=== PATIENT | female | born 1950 | race Caucasian/White ===

== ENCOUNTER 2018-05-22 08:05 | Inpatient (IN) ==
[2018-05-22 08:33] LABS: Baso % (Auto) 0.9 % (0.0-2.0); Eos # (Auto) 0.2 th/mm3 (0.0-0.4); Eos % (Auto) 5.2 % (0.0-4.0); Hematocrit 39.8 % (35.0-46.0); Hemoglobin 12.5 gm/dL (11.6-15.3); Lymph # (Auto) 0.6 th/mm3 (1.0-4.8); Lymph % (Auto) 16.4 % (9.0-44.0); Mean Corpuscular HGB Conc 31.3 % (32.0-36.0); Mean Corpuscular Hemoglobin 27.9 pg (27.0-34.0); Mean Platelet Volume 8.4 fL (7.0-11.0); Mono # (Auto) 0.2 th/mm3 (0.0-0.9); Mono % (Auto) 4.9 % (0.0-8.0); Neut # (Auto) 2.6 th/mm3 (1.8-7.7); Neut % (Auto) 72.6 % (16.0-70.0); Platelet Count 185 th/mm3 (150-450); Red Blood Count 4.48 mil/mm3 (4.00-5.30); Red Cell Distribution Width 15.1 % (11.6-17.2); White Blood Count 3.6 th/mm3 (4.0-11.0)
[2018-05-22 08:43] LABS: Chloride 105 meq/L (98-107); Potassium 4.3 meq/L (3.5-5.1); Sodium 143 meq/L (136-145)
[2018-05-22 08:46] LABS: Albumin 2.9 g/dL (3.4-5.0); Anion Gap 2 meq/L (5-15); Calcium 8.4 mg/dL (8.5-10.1); Carbon Dioxide 36.1 meq/L (21.0-32.0); Glucose,Random 105 mg/dL (74-106)
[2018-05-22 08:47] LABS: Blood Urea Nitrogen 30 mg/dL (7-18)
[2018-05-22 08:49] LABS: Alanine Aminotransferase 28 U/L (10-53); Aspartate Aminotransferase 26 U/L (15-37)
[2018-05-22 08:50] LABS: Glomerular Filtration Rate 32 mL/min (>89)
[2018-05-22 08:51] LABS: Total Protein 7.9 g/dL (6.4-8.2)
[2018-05-22 08:52] LABS: Alkaline Phosphatase 85 U/L (45-117)
[2018-05-22 08:53] LABS: Creatine Kinase 57 U/L (26-192)
[2018-05-22 08:54] LABS: Troponin I 0.03 ng/mL (0.02-0.05)
--- NOTE | 2018-05-22 09:00 | ED ---
HPI General Chief complaint: Respiratory Symptoms Stated complaint: Cough/Sob x this am Time Seen by Provider: 05/22/18 08:17 History of Present Illness HPI narrative: 68-year-old female here for evaluation of shortness of breath. Patient has history of hypothyroid, hypertension, cataract. Patient was scheduled to have a cataract surgery on the right eye this morning but she was having shortness of breath, surgery was canceled and patient was sent to the ER. Patient has history of brain aneurysm s/p repair, poor historian unable to give any information about her condition, she lives with her son who is not at the bedside, unsure if she is compliant with her medications. I am unsure if the patient has been having cough or fever at home with any symptoms. Related Data Home Medications Medication Instructions Recorded Confirmed allopurinol 100 mg PO DAILY 05/21/18 05/21/18 amlodipine 5 mg PO DAILY 05/21/18 05/21/18 aspirin 81 mg PO DAILY 05/21/18 05/21/18 atorvastatin 20 mg PO DAILY 05/21/18 05/21/18 levothyroxine 112 mcg PO DAILY 05/21/18 05/21/18 metoprolol succinate 50 mg PO DAILY 05/21/18 05/21/18 Allergies Allergy/AdvReac Type Severity Reaction Status Date / Time Iodinated Contrast- Oral and Allergy Unknown Verified 05/22/18 08:35 IV Dye [Contrast] Review of Systems ROS: all other systems reviewed are negative [facility] Medical History Medical History Anatomical narrow angle (Acute) Bandemia (Acute) Bilateral cataracts (Acute) CKD (chronic kidney disease) (Acute) Dementia (Acute) Gout (Acute) History of stroke (Acute) Hx of acute renal failure (Acute) Hyperlipidemia (Acute) Hypertension (Acute) Hypothyroidism (Acute) Leukocytosis (Acute) Mitral regurgitation (Acute) SOB (shortness of breath) (Acute) Syncope (Acute) TIA (transient ischemic attack) (Acute) Tricuspid regurgitation (Acute) Vitamin D deficiency (Acute) Surgical History Surgical History H/O craniotomy (Acute) Social History Social History Substance History: No History of Abuse Second Hand Smoke Exposure: No Smoking Status: Former smoker Tobacco Type: Cigarettes How Often Do You Have a Drink Containing Alcohol: Never Recent Travel in [facility] within the Last 8 Weeks: No Recent Out of Country Travel within the Last 8 Weeks: No Immunization History Tetanus Immunization: Unsure Hx Influenza Vaccine This Season: Yes Exam Narrative Exam Narrative: GENERAL: Alert oriented 2, no acute distress SKIN: Focused skin assessment warm/dry. HEAD: Atraumatic. Normocephalic. EYES: Right pupil dilated, No scleral icterus. No injection or drainage. ENT: No nasal bleeding or discharge. Mucous membranes pink and moist. NECK: Trachea midline. No JVD. CARDIOVASCULAR: Regular rate and rhythm. No murmur appreciated. RESPIRATORY: Crackles bilateral lower lung wagner left more than right, no accessory muscle use. GASTROINTESTINAL: Abdomen soft, non-tender, nondistended. Hepatic and splenic margins not palpable. MUSCULOSKELETAL: pitting Edema b/l. No obvious deformities. No clubbing. No cyanosis. NEUROLOGICAL: Awake and alert. No obvious cranial nerve deficits. Motor grossly within normal limits. Normal speech. PSYCHIATRIC: Appropriate mood and affect; insight and judgment normal. Course Initial Documented Vital Signs Temperature 98 F 05/22/18 08:30 Pulse Rate 86 05/22/18 08:30 Respiratory Rate 26 H 05/22/18 08:30 Blood Pressure 156/80 H 05/22/18 08:30 Pulse Oximetry 95 05/22/18 08:30 Last Documented Vital Signs Temperature 98.2 F 05/22/18 20:00 Pulse Rate 60 05/23/18 07:00 Respiratory Rate 15 05/23/18 07:00 Blood Pressure 154/65 H 05/23/18 07:00 Pulse Oximetry 93 L 05/23/18 07:45 Medical Decision Making [facility] Narrative Medical decision making narrative: 68-year-old female here for acute onset shortness of breath. Patient has kyphosis, x-ray shows bilateral atelectasis with no infiltrates, physical exam remarkable for crackles, elevated BNP, hypercapnea on ABG. Patient was started on BiPAP 18/ with 30% oxygen she seems to be improving and no concern for deterioration to warrant for securing the airway, will repeat ABG after the BiPAP, patient will be admitted for hypercapnia, hypoxemia, CHF exacerbation. Lab Data Result diagrams: 05/22/18 08:20 05/23/18 04:37 Lab Results 05/22/18 05/22/18 05/22/18 Range/Units 08:20 08:20 08:20 CBC w Diff Auto diff final WBC 3.6 L (4.0-11.0) th/mm3 RBC 4.48 (4.00-5.30) mil/mm3 Hgb 12.5 (11.6-15.3) gm/dL Hct 39.8 (35.0-46.0) % MCV 89.0 (80.0-100.0) fL MCH 27.9 (27.0-34.0) pg MCHC 31.3 L (32.0-36.0) % RDW 15.1 (11.6-17.2) % Plt Count 185 (150-450) th/mm3 MPV 8.4 (7.0-11.0) fL Neut % (Auto) 72.6 H (16.0-70.0) % Lymph % (Auto) 16.4 (9.0-44.0) % [place] % (Auto) 4.9 (0.0-8.0) % Eos % (Auto) 5.2 H (0.0-4.0) % Baso % (Auto) 0.9 (0.0-2.0) % Neut # (Auto) 2.6 (1.8-7.7) th/mm3 Lymph # (Auto) 0.6 L (1.0-4.8) th/mm3 [place] # (Auto) 0.2 (0.0-0.9) th/mm3 Eos # (Auto) 0.2 (0.0-0.4) th/mm3 Baso # (Auto) 0.0 (0.0-0.2) th/mm3 WBC Differential . Differential Comment . PT (9.8-11.6) sec INR Ratio APTT (24.3-30.1) sec Puncture Site Patient Temperature O2 Saturation (90-100) % ABG pH (7.380-7.420) ABG pCO2 (38-42) mmHg ABG pO2 (61-120) mmHg ABG HCO3 (22-26) mmol/L ABG O2 Content (12.0-20.0) Vol % ABG Base Excess (-2-2) mmol/L ABG Methemoglobin (0-2) % Curt Test Hemoglobin (12.0-16.0) G/DL Carboxyhemoglobin (0-4) % O2 Delivery Device Liter Flow L/M Vent Setting Inspired O2 % Critical Value Sodium 143 (136-145) meq/L Potassium 4.3 (3.5-5.1) meq/L Chloride 105 (98-107) meq/L Carbon Dioxide 36.1 H (21.0-32.0) meq/L Anion Gap 2 L (5-15) meq/L BUN 30 H (7-18) mg/dL Creatinine 1.60 H (0.50-1.00) mg/dL Estimated GFR 32 L (>89) mL/min POC Glucose (68-110) mg/dl Random Glucose 105 (74-106) mg/dL Lactic Acid 0.9 (0.4-2.0) mmol/L Calcium 8.4 L (8.5-10.1) mg/dL Total Bilirubin 0.5 (0.2-1.0) mg/dL AST 26 (15-37) U/L ALT 28 (10-53) U/L Alkaline Phosphatase 85 (45-117) U/L Total Creatine Kinase 57 (26-192) U/L Troponin I 0.03 (0.02-0.05) ng/mL B-Natriuretic Peptide (0-100) pg/mL Total Protein 7.9 (6.4-8.2) g/dL Albumin 2.9 L (3.4-5.0) g/dL Urine Color (Yellw/Straw) Urine Clarity (Clear) Urine pH (5.0-8.5) Ur Specific [place] (1.002-1.035) Urine Protein (Neg-Trace) mg/dL Urine Glucose (UA) (Negative) mg/dL Urine Ketones (Negative) mg/dL Urine Occult Blood (Negative) Urine Nitrate (Negative) Urine Bilirubin (Negative) Urine Urobilinogen (Less than 2) mg/dL Ur Leukocyte Esterase (Negative) Urine RBC (0-3) /hpf Ur Squamous Epith Cells (0-5) /hpf Amorphous Sediment (None) /hpf Micro UA Comment Urine Culture Comments Nasal Screen MRSA (PCR) (Negative) 05/22/18 05/22/18 05/22/18 Range/Units 08:20 08:50 09:00 CBC w Diff WBC (4.0-11.0) th/mm3 RBC (4.00-5.30) mil/mm3 Hgb (11.6-15.3) gm/dL Hct (35.0-46.0) % MCV (80.0-100.0) fL MCH (27.0-34.0) pg MCHC (32.0-36.0) % RDW (11.6-17.2) % Plt Count (150-450) th/mm3 MPV (7.0-11.0) fL Neut % (Auto) (16.0-70.0) % Lymph % (Auto) (9.0-44.0) % [place] % (Auto) (0.0-8.0) % Eos % (Auto) (0.0-4.0) % Baso % (Auto) (0.0-2.0) % Neut # (Auto) (1.8-7.7) th/mm3 Lymph # (Auto) (1.0-4.8) th/mm3 [place] # (Auto) (0.0-0.9) th/mm3 Eos # (Auto) (0.0-0.4) th/mm3 Baso # (Auto) (0.0-0.2) th/mm3 WBC Differential Differential Comment PT 11.0 (9.8-11.6) sec INR 1.1 Ratio APTT 24.7 (24.3-30.1) sec Puncture Site Left radial Patient Temperature 98.6 O2 Saturation 95 (90-100) % ABG pH 7.15 L* (7.380-7.420) ABG pCO2 103 H* (38-42) mmHg ABG pO2 122 H (61-120) mmHg ABG HCO3 35 H (22-26) mmol/L ABG O2 Content 16.0 (12.0-20.0) Vol % ABG Base Excess 6.3 H (-2-2) mmol/L ABG Methemoglobin 0.6 (0-2) % Curt Test Present Hemoglobin 11.8 L (12.0-16.0) G/DL Carboxyhemoglobin 1.8 (0-4) % O2 Delivery Device Nasal cannula Liter Flow 5.00 L/M Vent Setting Inspired O2 21 % Critical Value Yes Sodium (136-145) meq/L Potassium (3.5-5.1) meq/L Chloride (98-107) meq/L Carbon Dioxide (21.0-32.0) meq/L Anion Gap (5-15) meq/L BUN (7-18) mg/dL Creatinine (0.50-1.00) mg/dL Estimated GFR (>89) mL/min POC Glucose (68-110) mg/dl Random Glucose (74-106) mg/dL Lactic Acid (0.4-2.0) mmol/L Calcium (8.5-10.1) mg/dL Total Bilirubin (0.2-1.0) mg/dL AST (15-37) U/L ALT (10-53) U/L Alkaline Phosphatase (45-117) U/L Total Creatine Kinase (26-192) U/L Troponin I (0.02-0.05) ng/mL B-Natriuretic Peptide 835 H (0-100) pg/mL Total Protein (6.4-8.2) g/dL Albumin (3.4-5.0) g/dL Urine Color (Yellw/Straw) Urine Clarity (Clear) Urine pH (5.0-8.5) Ur Specific [place] (1.002-1.035) Urine Protein (Neg-Trace) mg/dL Urine Glucose (UA) (Negative) mg/dL Urine Ketones (Negative) mg/dL Urine Occult Blood (Negative) Urine Nitrate (Negative) Urine Bilirubin (Negative) Urine Urobilinogen (Less than 2) mg/dL Ur Leukocyte Esterase (Negative) Urine RBC (0-3) /hpf Ur Squamous Epith Cells (0-5) /hpf Amorphous Sediment (None) /hpf Micro UA Comment Urine Culture Comments Nasal Screen MRSA (PCR) (Negative) 05/22/18 05/22/18 05/22/18 Range/Units 10:14 10:30 13:00 CBC w Diff WBC (4.0-11.0) th/mm3 RBC (4.00-5.30) mil/mm3 Hgb (11.6-15.3) gm/dL Hct (35.0-46.0) % MCV (80.0-100.0) fL MCH (27.0-34.0) pg MCHC (32.0-36.0) % RDW (11.6-17.2) % Plt Count (150-450) th/mm3 MPV (7.0-11.0) fL Neut % (Auto) (16.0-70.0) % Lymph % (Auto) (9.0-44.0) % [place] % (Auto) (0.0-8.0) % Eos % (Auto) (0.0-4.0) % Baso % (Auto) (0.0-2.0) % Neut # (Auto) (1.8-7.7) th/mm3 Lymph # (Auto) (1.0-4.8) th/mm3 [place] # (Auto) (0.0-0.9) th/mm3 Eos # (Auto) (0.0-0.4) th/mm3 Baso # (Auto) (0.0-0.2) th/mm3 WBC Differential Differential Comment PT (9.8-11.6) sec INR Ratio APTT (24.3-30.1) sec Puncture Site Right radial Right radial Patient Temperature 98.6 98.6 O2 Saturation 86 L* 91 (90-100) % ABG pH 7.20 L* 7.27 L* (7.380-7.420) ABG pCO2 93 H* 82 H* (38-42) mmHg ABG pO2 66 70 (61-120) mmHg ABG HCO3 35 H 36 H (22-26) mmol/L ABG O2 Content 14.1 14.5 (12.0-20.0) Vol % ABG Base Excess 7.1 H 8.9 H (-2-2) mmol/L ABG Methemoglobin 1.4 0.6 (0-2) % Curt Test Present Present Hemoglobin 11.7 L 11.3 L (12.0-16.0) G/DL Carboxyhemoglobin 2.2 2.1 (0-4) % O2 Delivery Device Bipap Bipap Liter Flow L/M Vent Setting Ipap18/epap5 Ipap18/epap5 Inspired O2 35 35 % Critical Value Yes Yes Sodium (136-145) meq/L Potassium (3.5-5.1) meq/L Chloride (98-107) meq/L Carbon Dioxide (21.0-32.0) meq/L Anion Gap (5-15) meq/L BUN (7-18) mg/dL Creatinine (0.50-1.00) mg/dL Estimated GFR (>89) mL/min POC Glucose (68-110) mg/dl Random Glucose (74-106) mg/dL Lactic Acid (0.4-2.0) mmol/L Calcium (8.5-10.1) mg/dL Total Bilirubin (0.2-1.0) mg/dL AST (15-37) U/L ALT (10-53) U/L Alkaline Phosphatase (45-117) U/L Total Creatine Kinase (26-192) U/L Troponin I (0.02-0.05) ng/mL B-Natriuretic Peptide (0-100) pg/mL Total Protein (6.4-8.2) g/dL Albumin (3.4-5.0) g/dL Urine Color Yellow (Yellw/Straw) Urine Clarity Cloudy H (Clear) Urine pH 5.5 (5.0-8.5) Ur Specific [place] Greater/equal 1.030 (1.002-1.035) Urine Protein 300 or greater H (Neg-Trace) mg/dL Urine Glucose (UA) Negative (Negative) mg/dL Urine Ketones Negative (Negative) mg/dL Urine Occult Blood Trace (Negative) Urine Nitrate Negative (Negative) Urine Bilirubin Negative (Negative) Urine Urobilinogen 0.2 (Less than 2) mg/dL Ur Leukocyte Esterase Negative (Negative) Urine RBC 0-3 (0-3) /hpf Ur Squamous Epith Cells 0-5 (0-5) /hpf Amorphous Sediment Many H (None) /hpf Micro UA Comment Culture not ind Urine Culture Comments Culture not ind Nasal Screen MRSA (PCR) (Negative) 05/22/18 05/22/18 05/23/18 Range/Units 13:00 22:02 04:37 CBC w Diff WBC (4.0-11.0) th/mm3 RBC (4.00-5.30) mil/mm3 Hgb (11.6-15.3) gm/dL Hct (35.0-46.0) % MCV (80.0-100.0) fL MCH (27.0-34.0) pg MCHC (32.0-36.0) % RDW (11.6-17.2) % Plt Count (150-450) th/mm3 MPV (7.0-11.0) fL Neut % (Auto) (16.0-70.0) % Lymph % (Auto) (9.0-44.0) % [place] % (Auto) (0.0-8.0) % Eos % (Auto) (0.0-4.0) % Baso % (Auto) (0.0-2.0) % Neut # (Auto) (1.8-7.7) th/mm3 Lymph # (Auto) (1.0-4.8) th/mm3 [place] # (Auto) (0.0-0.9) th/mm3 Eos # (Auto) (0.0-0.4) th/mm3 Baso # (Auto) (0.0-0.2) th/mm3 WBC Differential Differential Comment PT (9.8-11.6) sec INR Ratio APTT (24.3-30.1) sec Puncture Site Patient Temperature O2 Saturation (90-100) % ABG pH (7.380-7.420) ABG pCO2 (38-42) mmHg ABG pO2 (61-120) mmHg ABG HCO3 (22-26) mmol/L ABG O2 Content (12.0-20.0) Vol % ABG Base Excess (-2-2) mmol/L ABG Methemoglobin (0-2) % Curt Test Hemoglobin (12.0-16.0) G/DL Carboxyhemoglobin (0-4) % O2 Delivery Device Liter Flow L/M Vent Setting Inspired O2 % Critical Value Sodium 144 (136-145) meq/L Potassium 5.1 D (3.5-5.1) meq/L Chloride 107 (98-107) meq/L Carbon Dioxide 34.5 H (21.0-32.0) meq/L Anion Gap 3 L (5-15) meq/L BUN 31 H (7-18) mg/dL Creatinine 1.50 H (0.50-1.00) mg/dL Estimated GFR 35 L (>89) mL/min POC Glucose 100 (68-110) mg/dl Random Glucose 134 H (74-106) mg/dL Lactic Acid (0.4-2.0) mmol/L Calcium 8.2 L (8.5-10.1) mg/dL Total Bilirubin 0.4 (0.2-1.0) mg/dL AST 21 (15-37) U/L ALT 22 (10-53) U/L Alkaline Phosphatase 76 (45-117) U/L Total Creatine Kinase (26-192) U/L Troponin I (0.02-0.05) ng/mL B-Natriuretic Peptide (0-100) pg/mL Total Protein 6.9 D (6.4-8.2) g/dL Albumin 2.4 L (3.4-5.0) g/dL Urine Color (Yellw/Straw) Urine Clarity (Clear) Urine pH (5.0-8.5) Ur Specific [place] (1.002-1.035) Urine Protein (Neg-Trace) mg/dL Urine Glucose (UA) (Negative) mg/dL Urine Ketones (Negative) mg/dL Urine Occult Blood (Negative) Urine Nitrate (Negative) Urine Bilirubin (Negative) Urine Urobilinogen (Less than 2) mg/dL Ur Leukocyte Esterase (Negative) Urine RBC (0-3) /hpf Ur Squamous Epith Cells (0-5) /hpf Amorphous Sediment (None) /hpf Micro UA Comment Urine Culture Comments Nasal Screen MRSA (PCR) Not detected (Negative) 05/23/18 Range/Units 08:00 CBC w Diff WBC (4.0-11.0) th/mm3 RBC (4.00-5.30) mil/mm3 Hgb (11.6-15.3) gm/dL Hct (35.0-46.0) % MCV (80.0-100.0) fL MCH (27.0-34.0) pg MCHC (32.0-36.0) % RDW (11.6-17.2) % Plt Count (150-450) th/mm3 MPV (7.0-11.0) fL Neut % (Auto) (16.0-70.0) % Lymph % (Auto) (9.0-44.0) % [place] % (Auto) (0.0-8.0) % Eos % (Auto) (0.0-4.0) % Baso % (Auto) (0.0-2.0) % Neut # (Auto) (1.8-7.7) th/mm3 Lymph # (Auto) (1.0-4.8) th/mm3 [place] # (Auto) (0.0-0.9) th/mm3 Eos # (Auto) (0.0-0.4) th/mm3 Baso # (Auto) (0.0-0.2) th/mm3 WBC Differential Differential Comment PT (9.8-11.6) sec INR Ratio APTT (24.3-30.1) sec Puncture Site Patient Temperature O2 Saturation (90-100) % ABG pH (7.380-7.420) ABG pCO2 (38-42) mmHg ABG pO2 (61-120) mmHg ABG HCO3 (22-26) mmol/L ABG O2 Content (12.0-20.0) Vol % ABG Base Excess (-2-2) mmol/L ABG Methemoglobin (0-2) % Curt Test Hemoglobin (12.0-16.0) G/DL Carboxyhemoglobin (0-4) % O2 Delivery Device Liter Flow L/M Vent Setting Inspired O2 % Critical Value Sodium (136-145) meq/L Potassium (3.5-5.1) meq/L Chloride (98-107) meq/L Carbon Dioxide (21.0-32.0) meq/L Anion Gap (5-15) meq/L BUN (7-18) mg/dL Creatinine (0.50-1.00) mg/dL Estimated GFR (>89) mL/min POC Glucose 125 H (68-110) mg/dl Random Glucose (74-106) mg/dL Lactic Acid (0.4-2.0) mmol/L Calcium (8.5-10.1) mg/dL Total Bilirubin (0.2-1.0) mg/dL AST (15-37) U/L ALT (10-53) U/L Alkaline Phosphatase (45-117) U/L Total Creatine Kinase (26-192) U/L Troponin I (0.02-0.05) ng/mL B-Natriuretic Peptide (0-100) pg/mL Total Protein (6.4-8.2) g/dL Albumin (3.4-5.0) g/dL Urine Color (Yellw/Straw) Urine Clarity (Clear) Urine pH (5.0-8.5) Ur Specific [place] (1.002-1.035) Urine Protein (Neg-Trace) mg/dL Urine Glucose (UA) (Negative) mg/dL Urine Ketones (Negative) mg/dL Urine Occult Blood (Negative) Urine Nitrate (Negative) Urine Bilirubin (Negative) Urine Urobilinogen (Less than 2) mg/dL Ur Leukocyte Esterase (Negative) Urine RBC (0-3) /hpf Ur Squamous Epith Cells (0-5) /hpf Amorphous Sediment (None) /hpf Micro UA Comment Urine Culture Comments Nasal Screen MRSA (PCR) (Negative) Imaging Data Radiologist's impression: Chest X-Ray 05/22/18 08:17 CONCLUSION: Mild bibasilar atelectasis. Chest CT 05/23/18 00:36 CONCLUSION: 1. Small bilateral pleural effusions, right larger than left. In the right lower lobe adjacent to the pleural fluid is atelectasis versus airspace consolidation. 2. Possible gallbladder wall edema. 3. Severe coronary artery calcification and atherosclerotic disease. Discharge Plan Discharge Disposition Patient Disposition: 30 Still Patient Discharge Condition Condition: Fair Discharge Details Diagnosis: CHF (congestive heart failure), Acute hypercapnic respiratory failure Physicians Team ED Provider: Kush Lazaro Primary Care Provider: UNKNOWN, Attending Provider: Montez Licona Other Providers: Shaquille Rivers V Status ED Status: Left Department Discharge Information Discharge Date/Time: 05/22/18 11:22
[2018-05-22 09:09] LABS: ABG Base Excess 6.3 mmol/L (-2-2); ABG PCO2 103 mmHg (38-42); ABG PO2 122 mmHg (61-120)
[2018-05-22 09:09] LABS: Activated Partial Thrombo Time 24.7 sec (24.3-30.1); INR 1.1 Ratio
--- NOTE | 2018-05-22 09:14 | XR ---
EXAM DATE: 05/22/2018 8:47 AM EDT AGE/SEX: 68 years / Female INDICATIONS: Patient presents with shortness of breath and lethargic, new onset. CLINICAL DATA: This is the patient's initial encounter. Patient reports that signs and symptoms have been present for 1 day and indicates a pain score of 4/10. MEDICAL/SURGICAL HISTORY: None. Non-responsive. COMPARISON: [facility], XR CHEST PA AND LAT, 10/12/2014. . FINDINGS: Mild atelectasis seen of both bases. No pleural effusion or pneumothorax. Heart size stable, within normal limits. CONCLUSION: Mild bibasilar atelectasis. Electronically signed by: Shaquille Taylor MD 05/22/2018 9:13 AM EDT
--- NOTE | 2018-05-22 09:30 | ECG ---
Date Performed: 05/22/2018 Time Performed: 08:30:53 PTAGE: 68 years EKG: Sinus rhythm INFERIOR MYOCARDIAL INFARCTION ANTEROSEPTAL MYOCARDIAL INFARCTION ABNORMAL ECG NO PREVIOUS TRACING DOCTOR: Hoda Coto Interpretating Date/Time 05/22/2018 09:29:16
[2018-05-22 10:19] LABS: ABG Base Excess 7.1 mmol/L (-2-2); ABG PCO2 93 mmHg (38-42); ABG PO2 66 mmHg (61-120)
[2018-05-22 10:47] LABS: Bilirubin,Urine Negative (Negative); Clarity,Urine Cloudy (Clear); Color,Urine Yellow (Yellw/Straw); Glucose,Urine (UA) Negative (Negative); Leukocyte Esterase,Urine Negative (Negative); Nitrite,Urine Negative (Negative); PH,Urine 5.5 (5.0-8.5); Specific Gravity,Urine Greater/Equal 1.030 (1.002-1.035); Urobilinogen,Urine 0.2 mg/dL (Less than 2)
[2018-05-22 11:01] LABS: RBC,Urine 0-3 /hpf (0-3)
[2018-05-22 11:02] LABS: Amorphous Sediment,Urine Many /hpf; Squamous Epithelial Cell,Urine 0-5 /hpf (0-5)
--- NOTE | 2018-05-22 12:15 | P.PNADD ---
Addendum to Inpatient Note Reason for Addendum: Corrected Documentation Additional information: I was contacted earlier by ER provider to admit patient for respiratory failure. At the time he saw her they were unsure of her primary care physician but she does have [facility] so they contact me. Patient was placed on BiPAP due to hypercapnic hypoxic respiratory failure. Her repeat ABG done approximately an hour after the BiPAP showed improvement of numbers and her mental status was moving as well. When I came to interview the patient she reported to me that she was a patient of Dr. Licona's. I spoke with Dr. Licona and did confirm this with him. He will accept care of the patient. I advised that I would place him baseline orders so it would not be any delay in her care as he is in his office currently. I placed cursory orders and changed attending names to reflect Dr. Licona's assumption of care.
[2018-05-22 13:07] LABS: ABG Base Excess 8.9 mmol/L (-2-2); ABG PCO2 82 mmHg (38-42); ABG PO2 70 mmHg (61-120)
[2018-05-22] MEDS ORDERED: MethylPREDNISolone Sod Succinate Inj 40 MG/ML Vial IV.PUSH SCH (14:00)
[2018-05-22] MEDS: Enoxaparin Inj 30 MG/0.3 ML Syringe SQ SCH (14:26)
[2018-05-22] MEDS: Azithromycin Inj 500 MG in Sodium Chlor 0.9% Inj 250 ML IV.SIG SCH (14:26)
[2018-05-22] MEDS: Pantoprazole Inj 40 MG Vial IV.PUSH SCH (16:15)
--- NOTE | 2018-05-22 17:06 | P.HPFP ---
History of Present Illness Service: family medicine Primary Care Physician: UNKNOWN History of Present Illness: pt sent to ED when she bwecame sob at a catarract proceedure Inpatient Certification: I certify that the inpatient services were ordered in accordance with Medicare regulations governing the order. This includes certification that hospital inpatient services are reasonable and necessary and in the case of services not specified as inpatient-only under 42 CFR 419.22(n), that they are appropriately provided as inpatient services in accordance to with the 2-midnight benchmark under 43 CFR 412.3(e) Estimated Total Length of Stay (Days): 3 Plans for Post Hospital Care: Not yet determined Review of Systems Respiratory: Reports shortness of breath Psychiatric: Reports confusion PMFSH - History History Provided By: Friend - Medical History Medical History: Medical History (Last Updated 05/21/18 @ 14:24 by Iris Haq RN) Anatomical narrow angle Bandemia Bilateral cataracts CKD (chronic kidney disease) Dementia Gout History of stroke Hx of acute renal failure Hyperlipidemia Hypertension Hypothyroidism Leukocytosis Mitral regurgitation SOB (shortness of breath) Syncope TIA (transient ischemic attack) Tricuspid regurgitation Vitamin D deficiency - Surgical History Surgical History: Surgical History (Last Updated 05/21/18 @ 14:25 by Iris Haq RN) H/O craniotomy - Tobacco History Second Hand Smoke Exposure: No Tobacco Use In Past 30 Days: No Smoking Status: Former smoker Tobacco Type: Cigarettes - Alcohol History How Often Do You Have a Drink Containing Alcohol: Never - Substance Use History Substance History: No History of Abuse - Travel History Recent Travel in the [place] Within the Last 8 Weeks: No Recent Travel Out of the Country Within the Last 8 Weeks: No - Immunization History Tetanus Immunization: >5 Years Hx Influenza Vaccine This Season: Yes Medications and Allergies Active Medications: Active Medications Albuterol (Albuterol Neb (Prn)) 2.5 mg NEB Q2HR NEB PRN PRN Reason: SHORTNESS OF BREATH Albuterol (Duoneb Neb (Willy)) 1 ampul NEB Q6HR NEB WILLY Last Admin: 05/22/18 15:21 Dose: 1 ampul Chlorhexidine Gluconate (Chlorhexidine 2% Cloth) 3 pack TOPICAL DAILY@0400 WILLY Stop: 05/28/18 03:59 Chlorhexidine Gluconate (Chlorhexidine 2% Cloth) 3 pack TOPICAL DAILY@0400 PRN PRN Reason: Extra cloth needed Stop: 05/28/18 03:59 Enoxaparin Sodium (Lovenox Inj) 30 mg SQ Q24H [facility] Last Admin: 05/22/18 14:26 Dose: 30 mg Azithromycin 500 mg/ Sodium (Chloride) 250 mls @ 250 mls/hr IV.SIG Q24H [facility] Last Admin: 05/22/18 14:26 Dose: 250 mls/hr Ceftriaxone Sodium 1,000 mg/ (Sodium Chloride) 100 mls @ 200 mls/hr IV.SIG Q24H [facility] Last Admin: 05/22/18 14:27 Dose: 200 mls/hr Methylprednisolone Sodium Succinate (Solumedrol Inj) 40 mg IV.PUSH Q12H [facility] Last Admin: 05/22/18 14:26 Dose: 40 mg Pantoprazole Sodium (Protonix Inj) 40 mg IV.PUSH DAILY [facility] Last Admin: 05/22/18 16:15 Dose: 40 mg Allergies Allergy/AdvReac Type Severity Reaction Status Date / Time Iodinated Contrast- Oral and Allergy Unknown Verified 05/22/18 08:35 IV Dye [Contrast] Home Medications Medication Instructions Recorded Confirmed Type allopurinol 100 mg PO DAILY 05/21/18 05/21/18 History amlodipine 5 mg PO DAILY 05/21/18 05/21/18 History aspirin 81 mg PO DAILY 05/21/18 05/21/18 History atorvastatin 20 mg PO DAILY 05/21/18 05/21/18 History levothyroxine 112 mcg PO DAILY 05/21/18 05/21/18 History metoprolol succinate 50 mg PO DAILY 05/21/18 05/21/18 History Exam Vital signs: Vital Signs 05/22/18 08:30 05/22/18 09:23 05/22/18 09:24 Temperature 98 F Pulse Rate 86 76 Respiratory Rate 26 H 26 H Blood Pressure 156/80 H 134/71 Pulse Oximetry 95 90 L 90 L 05/22/18 09:27 05/22/18 09:57 05/22/18 10:33 Temperature Pulse Rate 68 67 Respiratory Rate 20 20 Blood Pressure 120/74 Pulse Oximetry 92 L 88 L 90 L 05/22/18 11:20 05/22/18 11:39 05/22/18 11:42 Temperature 96.7 F L Pulse Rate 64 58 L Respiratory Rate 18 17 Blood Pressure 116/61 136/73 Pulse Oximetry 87 L 95 95 05/22/18 12:00 05/22/18 12:15 05/22/18 13:00 Temperature 97.5 F L Pulse Rate 62 58 L Respiratory Rate 25 H 19 Blood Pressure 128/70 142/67 H Pulse Oximetry 97 98 05/22/18 14:00 05/22/18 15:00 05/22/18 16:00 Temperature 97.9 F Pulse Rate 58 L 58 L 58 L Respiratory Rate 12 27 H 14 Blood Pressure 110/59 L 134/66 133/70 Pulse Oximetry 99 97 96 05/22/18 16:24 Temperature Pulse Rate Respiratory Rate Blood Pressure Pulse Oximetry 96 Intake & Output 05/21/18 05/22/18 05/22/18 18:59 06:59 18:59 Intake Total 120 / 120 Output Total 300 / 300 Balance -180 / -180 Weight 76.4 kg Intake: Oral 120 / 120 Output: Urine 300 / 300 Other: Weight On Admission 76.4 kg - Constitutional no acute distress - Routine HEENT Exam Head: Present: normocephalic Eye: Present: EOMI, PERRL ENT: Present: mucous membranes moist - Routine Neck Exam Present: supple - Routine Respiratory Exam Present: distant breath sounds, diminished air movement - Routine Cardiovascular Exam Present: RRR - Routine Abdominal Exam Present: soft - Routine Neurological Exam normally confused sp cerebral aneurysm Results - Labs Result diagrams: 05/22/18 08:20 05/22/18 08:20 Abnormal lab results 05/22/18 05/22/18 05/22/18 Range/Units 08:20 08:20 08:20 WBC 3.6 L (4.0-11.0) th/mm3 MCHC 31.3 L (32.0-36.0) % Neut % (Auto) 72.6 H (16.0-70.0) % Eos % (Auto) 5.2 H (0.0-4.0) % Lymph # (Auto) 0.6 L (1.0-4.8) th/mm3 O2 Saturation (90-100) % ABG pH (7.380-7.420) ABG pCO2 (38-42) mmHg ABG pO2 (61-120) mmHg ABG HCO3 (22-26) mmol/L ABG Base Excess (-2-2) mmol/L Hemoglobin (12.0-16.0) G/DL Carbon Dioxide 36.1 H (21.0-32.0) meq/L Anion Gap 2 L (5-15) meq/L BUN 30 H (7-18) mg/dL Creatinine 1.60 H (0.50-1.00) mg/dL Estimated GFR 32 L (>89) mL/min Calcium 8.4 L (8.5-10.1) mg/dL B-Natriuretic Peptide 835 H (0-100) pg/mL Albumin 2.9 L (3.4-5.0) g/dL Urine Clarity (Clear) Urine Protein (Neg-Trace) mg/dL Amorphous Sediment (None) /hpf 05/22/18 05/22/18 05/22/18 Range/Units 09:00 10:14 10:30 WBC (4.0-11.0) th/mm3 MCHC (32.0-36.0) % Neut % (Auto) (16.0-70.0) % Eos % (Auto) (0.0-4.0) % Lymph # (Auto) (1.0-4.8) th/mm3 O2 Saturation 86 L* (90-100) % ABG pH 7.15 L* 7.20 L* (7.380-7.420) ABG pCO2 103 H* 93 H* (38-42) mmHg ABG pO2 122 H (61-120) mmHg ABG HCO3 35 H 35 H (22-26) mmol/L ABG Base Excess 6.3 H 7.1 H (-2-2) mmol/L Hemoglobin 11.8 L 11.7 L (12.0-16.0) G/DL Carbon Dioxide (21.0-32.0) meq/L Anion Gap (5-15) meq/L BUN (7-18) mg/dL Creatinine (0.50-1.00) mg/dL Estimated GFR (>89) mL/min Calcium (8.5-10.1) mg/dL B-Natriuretic Peptide (0-100) pg/mL Albumin (3.4-5.0) g/dL Urine Clarity Cloudy H (Clear) Urine Protein 300 or greater H (Neg-Trace) mg/dL Amorphous Sediment Many H (None) /hpf 05/22/18 Range/Units 13:00 WBC (4.0-11.0) th/mm3 MCHC (32.0-36.0) % Neut % (Auto) (16.0-70.0) % Eos % (Auto) (0.0-4.0) % Lymph # (Auto) (1.0-4.8) th/mm3 O2 Saturation (90-100) % ABG pH 7.27 L* (7.380-7.420) ABG pCO2 82 H* (38-42) mmHg ABG pO2 (61-120) mmHg ABG HCO3 36 H (22-26) mmol/L ABG Base Excess 8.9 H (-2-2) mmol/L Hemoglobin 11.3 L (12.0-16.0) G/DL Carbon Dioxide (21.0-32.0) meq/L Anion Gap (5-15) meq/L BUN (7-18) mg/dL Creatinine (0.50-1.00) mg/dL Estimated GFR (>89) mL/min Calcium (8.5-10.1) mg/dL B-Natriuretic Peptide (0-100) pg/mL Albumin (3.4-5.0) g/dL Urine Clarity (Clear) Urine Protein (Neg-Trace) mg/dL Amorphous Sediment (None) /hpf Short CBC 05/22/18 Range/Units 08:20 WBC 3.6 L (4.0-11.0) th/mm3 Hgb 12.5 (11.6-15.3) gm/dL Hct 39.8 (35.0-46.0) % Plt Count 185 (150-450) th/mm3 BMP 05/22/18 08:20 Sodium 143 Potassium 4.3 Chloride 105 Carbon Dioxide 36.1 H BUN 30 H Creatinine 1.60 H Calcium 8.4 L Cardiac Enzymes 05/22/18 Range/Units 08:20 Total Creatine Kinase 57 (26-192) U/L Troponin I 0.03 (0.02-0.05) ng/mL Liver Function 05/22/18 Range/Units 08:20 Total Bilirubin 0.5 (0.2-1.0) mg/dL AST 26 (15-37) U/L ALT 28 (10-53) U/L Alkaline Phosphatase 85 (45-117) U/L Albumin 2.9 L (3.4-5.0) g/dL Urine 05/22/18 Range/Units 10:30 Urine Color Yellow (Yellw/Straw) Urine Clarity Cloudy H (Clear) Urine pH 5.5 (5.0-8.5) Ur Specific [place] Greater/equal 1.030 (1.002-1.035) Urine Protein 300 or greater H (Neg-Trace) mg/dL Urine Glucose (UA) Negative (Negative) mg/dL - Imaging Impressions Chest X-Ray 05/22/18 08:17 CONCLUSION: Mild bibasilar atelectasis. Caprini VTE Risk Assessment Caprini VTE Risk Assessment: Moderate/High Risk (score >= 2) Caprini Risk Assessment Model: Point Value = 1 Point Value = 2 Point Value = 3 Point Value = 5 Age 41-60 Minor surgery BMI > 25 kg/m2 Swollen legs Varicose veins or History of unexplained or recurrent spontaneous Oral contraceptives or hormone replacement Sepsis (< 1 month) Serious lung disease, including pneumonia (< 1 month) Abnormal pulmonary function Acute myocardial infarction Congestive heart failure (< 1 month) History of inflammatory bowel disease Medical patient at bed rest Age 61-74 Arthroscopic surgery Major open surgery (> 45 min) Laparoscopic surgery (> 45 min) Malignancy Confined to bed (> 72 hours) Immobilizing plaster cast Central venous access Age >= 75 History of VTE Family history of VTE Factor V Leiden Prothrombin [id number] Lupus anticoagulant Anticardiolipin antibodies Elevated serum homocysteine Heparin-induced thrombocytopenia Other congenital or acquired thrombophilia Stroke (< 1 month) Elective arthroplasty Hip, pelvis, or leg fracture Acute spinal cord injury (< 1 month) Prophylaxis Regimen: Total Risk Factor Score Risk Level Prophylaxis Regimen 0-1 Low Early ambulation 2 Moderate Order ONE of the following: *Sequential Compression Device (SCD) *Heparin 5000 units SQ BID 3-4 Higher Order ONE of the following medications: *Heparin 5000 units SQ TID *Enoxaparin/Lovenox 40 mg SQ daily (WT < 150 kg, CrCl > 30 mL/min) *Enoxaparin/Lovenox 30 mg SQ daily (WT < 150 kg, CrCl > 10-29 mL/min) *Enoxaparin/Lovenox 30 mg SQ BID (WT < 150 kg, CrCl > 30 mL/min) AND/OR *Sequential Compression Device (SCD) 5 or more Highest Order ONE of the following medications: *Heparin 5000 units SQ TID (Preferred with Epidurals) *Enoxaparin/Lovenox 40 mg SQ daily (WT < 150 kg, CrCl > 30 mL/min) *Enoxaparin/Lovenox 30 mg SQ daily (WT < 150 kg, CrCl > 10-29 mL/min) *Enoxaparin/Lovenox 30 mg SQ BID (WT < 150 kg, CrCl > 30 mL/min) AND *Sequential Compression Device (SCD) Assessment and Plan - Assessment and Plan icu admission pulmonary consult H&P: Quality - VTE Deep Vein Thrombosis/Pulmonary Embolism Present on Admission: No
[2018-05-22] MEDS: Dextrose 5%/NaCl 0.45% Inj 1,000 ML IV.CONT SCH (17:38)
[2018-05-22] MEDS: MethylPREDNISolone Sod Succinate Inj 40 MG/ML Vial IV.PUSH SCH ×2 (17:42→23:55)
--- NOTE | 2018-05-22 17:49 | MB ---
cc: Kegean Deleon MD, V J MD DATE: 05/22/2018 REASON FOR CONSULTATION: Respiratory failure. HISTORY OF PRESENT ILLNESS: This is a 68-year-old white female with a prior history of COPD, who was admitted with significant shortness of breath and chest tightness. The patient has a past history for hypertension, hypothyroidism and was scheduled for a cataract operation. While she was at the staff physical therapy assistant's office, she was noted to be quite dyspneic and thus was advised to go to the emergency room. Upon arrival, the patient had a blood gas study done which showed evidence of severe hypercapnia and hypoxemia. She was placed on BiPAP mask and now admitted to the intensive care unit. The patient is unable to give any meaningful details, since she has a history of a previous brain aneurysm with cognitive deficits. She lives with her son and unable to provide any meaningful complaints or history. PAST MEDICAL HISTORY: Has included hypertension, history of hypothyroidism, history of repair of a brain aneurysm, history of cataracts. She has had COPD and she has had previous history of craniotomy, hypothyroidism, mitral regurgitation, TIA, history of gout and a history for tricuspid regurgitation. HABITS: The patient apparently was a smoker in the past, remotely. No significant alcohol intake. ALLERGIES: NO DRUG ALLERGIES ARE LISTED. FAMILY HISTORY: Noncontributory. REVIEW OF SYSTEMS: The patient is unable to provide any details. Denies chest pains, however, and complaints of some wheezing, shortness of breath and epigastric distress. MEDICATIONS: 1. Amlodipine 5 mg daily. 2. Allopurinol 100 mg daily. 3. Levothyroxine 112 mcg a day. 4. Metoprolol 50 mg daily. 5. Atorvastatin 20 mg a day. PHYSICAL EXAMINATION: GENERAL: This is an averagely built, elderly, white female who is anxious, alert on a BiPAP mask and tachypneic. VITAL SIGNS: Blood pressure 138/80, pulse is 80, respirations 24, temperature 98.2. HEENT: Head is normocephalic. Pupils are reactive and equal. Tongue is dry. Throat is injected. Nasal mucosa is clear. NECK: Supple. No bruits. Mild venous distention. Trachea midline. CHEST: Equal movements with distant breath sounds. Expiratory wheezes were scattered throughout both lung wagner, prolonged expirations. HEART: The heart sounds are regular, S1 and S2. No murmur. ABDOMEN: Soft, protuberant without masses, no organomegaly or tenderness. Bowel sounds are active. EXTREMITIES: No edema. Peripheral pulses are diminished. Reflexes are 1+. She does move all of her extremities well. NEUROLOGIC: No gross motor deficits. RECTAL: Deferred. SKIN: Cool and dry. IMPRESSION: 1. Hypercapnic respiratory failure. 2. Chronic obstructive pulmonary disease. 3. Probable early pneumonia. 4. Hypertension. 5. Hypothyroidism. 6. Dementia. PLAN: The patient will be maintained on BiPAP 16/7 cm FiO2 30%. Blood gas is repeated. She will be weaned down to nasal cannula in the morning. Solu-Medrol 40 mg IV q.6 hours added, cefepime 2 grams IV every 12 hours and Zithromax 500 mg IV daily. DuoNeb solution with a nebulizer every 4 hours and as needed. Repeat CBC, basic metabolic profile in the a.m. Sputum sent for culture and Gram stain if possible. CT scan of the chest to evaluate her for any infiltrates or nodules and the patient will be sent for a pulmonary function test when she is off the BiPAP. Thank you Dr. Licona for this consultation. VDeejay Deleon MD VJD/ , 05:21 PM , 05:34 PM
--- NOTE | 2018-05-23 03:38 | CT ---
EXAM DATE: 05/23/2018 3:27 AM EDT AGE/SEX: 68 years / Female INDICATIONS: Infiltrate. CLINICAL DATA: This is the patient's initial encounter. Patient reports that signs and symptoms have been present for 1 day and indicates a pain score of 0/10. MEDICAL/SURGICAL HISTORY: Renal insufficiency, chronic. Stroke. Dementia. Hypertension. Craniot sean. RADIATION DOSE: 7.99 CTDI (mGy) COMPARISON: [facility], CHEST 1V SINGLE AP, 05/22/2018. . TECHNIQUE: Multiple contiguous axial images were obtained through the chest without contrast. Image s were obtained in suspended respiration using multiple row detector helical technique. Using automa juan exposure control and adjustment of the mA and/or kV according to patient size, radiation dose was kept as low as reasonably achievable to obtain optimal diagnostic quality images. DICOM format imag e data is available electronically for review and comparison. FINDINGS: Lungs: There is consolidation versus atelectasis in the right lower lobe adjacent to the pleural eff usion. There is atelectasis in the left lower lobe. No pneumothorax is present. Mediastinum: The heart and great vessels demonstrate no acute abnormality. No lymphadenopathy is id entified. There is severe coronary artery calcification and severe atherosclerotic disease of the aor ta. Pleurae: There is small bilateral pleural effusions, right larger than left. Axillae: No lymphadenopathy. Musculoskeletal: The bones and soft tissues demonstrate no acute abnormality. There are degenerativ e changes of the thoracic spine. Other: Possible gallbladder wall edema. Partially visualized IVC filter is present. CONCLUSION: 1. Small bilateral pleural effusions, right larger than left. In the right lower lobe adjacent to th e pleural fluid is atelectasis versus airspace consolidation. 2. Possible gallbladder wall edema. 3. Severe coronary artery calcification and atherosclerotic disease. Electronically signed by: Shaquille Albarran MD 05/23/2018 3:37 AM EDT
[2018-05-23] MEDS ORDERED: Chlorhexidine Gluconate 2% 1 Pack (2 Cloths) TOPICAL PRN (04:00)
[2018-05-23] MEDS: Budesonide-Formoterol 160/4.5 MCG 6 GM Inhaler INH SCH ×3 (05:49→21:04)
[2018-05-23] MEDS: MethylPREDNISolone Sod Succinate Inj 40 MG/ML Vial IV.PUSH SCH ×4 (05:49→21:04)
[2018-05-23 05:52] LABS: Chloride 107 meq/L (98-107); Potassium 5.1 meq/L (3.5-5.1); Sodium 144 meq/L (136-145)
[2018-05-23 05:54] LABS: Calcium 8.2 mg/dL (8.5-10.1)
[2018-05-23 05:55] LABS: Albumin 2.4 g/dL (3.4-5.0); Anion Gap 3 meq/L (5-15); Blood Urea Nitrogen 31 mg/dL (7-18); Carbon Dioxide 34.5 meq/L (21.0-32.0); Glucose,Random 134 mg/dL (74-106)
[2018-05-23 06:01] LABS: Alanine Aminotransferase 22 U/L (10-53); Alkaline Phosphatase 76 U/L (45-117); Aspartate Aminotransferase 21 U/L (15-37); Glomerular Filtration Rate 35 mL/min (>89); Total Protein 6.9 g/dL (6.4-8.2)
[2018-05-23 08:40] LABS: Baso % (Auto) 1.2 % (0.0-2.0); Hematocrit 39.1 % (35.0-46.0); Hemoglobin 12.1 gm/dL (11.6-15.3); Lymph # (Auto) 0.3 th/mm3 (1.0-4.8); Lymph % (Auto) 11.9 % (9.0-44.0); Mean Corpuscular Volume 87.3 fL (80.0-100.0); Mean Platelet Volume 9.3 fL (7.0-11.0); Mono % (Auto) 0.4 % (0.0-8.0); Neut # (Auto) 2.5 th/mm3 (1.8-7.7); Neut % (Auto) 86.5 % (16.0-70.0); Platelet Count 154 th/mm3 (150-450); Red Blood Count 4.48 mil/mm3 (4.00-5.30); Red Cell Distribution Width 15.4 % (11.6-17.2); White Blood Count 2.8 th/mm3 (4.0-11.0)
[2018-05-23] MEDS: Pantoprazole Inj 40 MG Vial IV.PUSH SCH (09:14)
[2018-05-23 09:25] LABS: Mean Corpuscular HGB Conc 30.9 % (32.0-36.0)
[2018-05-23] MEDS: Dextrose 5%/NaCl 0.45% Inj 1,000 ML IV.CONT SCH ×2 (09:31→19:00)
[2018-05-23] MEDS: Chlorhexidine Gluconate 2% 1 Pack (2 Cloths) TOPICAL SCH (09:31)
--- NOTE | 2018-05-23 10:45 | P.PNFP ---
Subjective Interval history: Uneventful night reported Sat's maintained on NC Denies Cp, or sob Results - Labs Result diagrams: 05/23/18 08:10 05/23/18 04:37 Abnormal lab results 05/22/18 05/22/18 05/22/18 Range/Units 10:14 10:30 13:00 WBC (4.0-11.0) th/mm3 MCHC (32.0-36.0) % Neut % (Auto) (16.0-70.0) % Lymph # (Auto) (1.0-4.8) th/mm3 O2 Saturation 86 L* (90-100) % ABG pH 7.20 L* 7.27 L* (7.380-7.420) ABG pCO2 93 H* 82 H* (38-42) mmHg ABG HCO3 35 H 36 H (22-26) mmol/L ABG Base Excess 7.1 H 8.9 H (-2-2) mmol/L Hemoglobin 11.7 L 11.3 L (12.0-16.0) G/DL Carbon Dioxide (21.0-32.0) meq/L Anion Gap (5-15) meq/L BUN (7-18) mg/dL Creatinine (0.50-1.00) mg/dL Estimated GFR (>89) mL/min POC Glucose (68-110) mg/dl Random Glucose (74-106) mg/dL Calcium (8.5-10.1) mg/dL Albumin (3.4-5.0) g/dL Urine Clarity Cloudy H (Clear) Urine Protein 300 or greater H (Neg-Trace) mg/dL Amorphous Sediment Many H (None) /hpf 05/23/18 05/23/18 05/23/18 Range/Units 04:37 08:00 08:10 WBC 2.8 L (4.0-11.0) th/mm3 MCHC 30.9 L (32.0-36.0) % Neut % (Auto) 86.5 H (16.0-70.0) % Lymph # (Auto) 0.3 L (1.0-4.8) th/mm3 O2 Saturation (90-100) % ABG pH (7.380-7.420) ABG pCO2 (38-42) mmHg ABG HCO3 (22-26) mmol/L ABG Base Excess (-2-2) mmol/L Hemoglobin (12.0-16.0) G/DL Carbon Dioxide 34.5 H (21.0-32.0) meq/L Anion Gap 3 L (5-15) meq/L BUN 31 H (7-18) mg/dL Creatinine 1.50 H (0.50-1.00) mg/dL Estimated GFR 35 L (>89) mL/min POC Glucose 125 H (68-110) mg/dl Random Glucose 134 H (74-106) mg/dL Calcium 8.2 L (8.5-10.1) mg/dL Albumin 2.4 L (3.4-5.0) g/dL Urine Clarity (Clear) Urine Protein (Neg-Trace) mg/dL Amorphous Sediment (None) /hpf Short CBC 05/23/18 Range/Units 08:10 WBC 2.8 L (4.0-11.0) th/mm3 Hgb 12.1 (11.6-15.3) gm/dL Hct 39.1 (35.0-46.0) % Plt Count 154 (150-450) th/mm3 BMP 05/23/18 04:37 Sodium 144 Potassium 5.1 D Chloride 107 Carbon Dioxide 34.5 H BUN 31 H Creatinine 1.50 H Calcium 8.2 L Liver Function 05/23/18 Range/Units 04:37 Total Bilirubin 0.4 (0.2-1.0) mg/dL AST 21 (15-37) U/L ALT 22 (10-53) U/L Alkaline Phosphatase 76 (45-117) U/L Albumin 2.4 L (3.4-5.0) g/dL Urine 05/22/18 Range/Units 10:30 Urine Color Yellow (Yellw/Straw) Urine Clarity Cloudy H (Clear) Urine pH 5.5 (5.0-8.5) Ur Specific [place] Greater/equal 1.030 (1.002-1.035) Urine Protein 300 or greater H (Neg-Trace) mg/dL Urine Glucose (UA) Negative (Negative) mg/dL - Imaging Impressions Chest CT 05/23/18 00:36 CONCLUSION: 1. Small bilateral pleural effusions, right larger than left. In the right lower lobe adjacent to the pleural fluid is atelectasis versus airspace consolidation. 2. Possible gallbladder wall edema. 3. Severe coronary artery calcification and atherosclerotic disease. Physical Exam Vital signs: Vital Signs 05/22/18 11:20 05/22/18 11:39 05/22/18 11:42 Temperature 96.7 F L Pulse Rate 64 58 L Respiratory Rate 18 17 Blood Pressure 116/61 136/73 Pulse Oximetry 87 L 95 95 05/22/18 12:00 05/22/18 12:15 05/22/18 13:00 Temperature 98.3 F Pulse Rate 62 58 L Respiratory Rate 25 H 19 Blood Pressure 128/70 142/67 H Pulse Oximetry 97 98 05/22/18 14:00 05/22/18 15:00 05/22/18 16:00 Temperature 97.9 F Pulse Rate 58 L 58 L 58 L Respiratory Rate 12 27 H 14 Blood Pressure 110/59 L 134/66 133/70 Pulse Oximetry 99 97 96 05/22/18 16:24 05/22/18 17:00 05/22/18 17:13 Temperature Pulse Rate 63 Respiratory Rate 16 Blood Pressure 155/72 H Pulse Oximetry 96 96 95 05/22/18 18:00 05/22/18 19:00 05/22/18 19:30 Temperature Pulse Rate 64 62 Respiratory Rate 24 19 Blood Pressure 113/72 141/74 H Pulse Oximetry 96 95 94 L 05/22/18 20:00 05/22/18 21:00 05/22/18 21:50 Temperature 98.2 F Pulse Rate 62 62 Respiratory Rate 20 19 Blood Pressure 131/60 142/64 H Pulse Oximetry 91 L 94 L 94 L 05/22/18 22:00 05/22/18 22:22 05/22/18 23:00 Temperature Pulse Rate 66 66 70 Respiratory Rate 16 20 25 H Blood Pressure 121/62 128/59 L Pulse Oximetry 96 95 93 L 05/23/18 00:00 05/23/18 01:00 05/23/18 01:46 Temperature Pulse Rate 64 64 Respiratory Rate 19 18 Blood Pressure 110/59 L 106/49 L Pulse Oximetry 96 95 94 L 05/23/18 03:16 05/23/18 04:30 05/23/18 05:00 Temperature Pulse Rate 66 56 L 60 Respiratory Rate 32 H 16 19 Blood Pressure 119/69 151/65 H Pulse Oximetry 94 L 95 05/23/18 06:00 05/23/18 07:00 05/23/18 07:45 Temperature Pulse Rate 56 L 60 Respiratory Rate 18 15 Blood Pressure 148/70 H 154/65 H Pulse Oximetry 96 97 93 L 05/23/18 09:41 Temperature Pulse Rate 76 Respiratory Rate 26 H Blood Pressure Pulse Oximetry 92 L Intake & Output 05/22/18 05/23/18 05/23/18 18:59 06:59 18:59 Intake Total 570 / 570 1220 / 1220 Output Total 1200 / 1200 400 / 400 Balance -630 / -630 820 / 820 Weight 76.4 kg 76.8 kg Intake: IV 450 / 450 1100 / 1100 D5W/1/2 NS Inj 1,000 ML @ 84 1000 / 1000 mls/hr IV.CONT .[id number] [facility] Rx# :[id number] Azithromycin Inj 500 MG In NS 250 / 250 Inj 250 ML @ 250 mls/hr IV.SIG Q24H [facility] Rx#:[id number] Maxipime Inj 2,000 MG In NS Inj 100 / 100 100 / 100 100 ML @ 200 mls/hr IV.SIG Q12H [facility] Rx#:[id number] Oral 120 / 120 120 / 120 Output: Urine 1200 / 1200 Urine Amount (Catheter) 400 / 400 Indwelling Urethral Catheter 400 / 400 Other: Weight On Admission 76.4 kg - Constitutional no acute distress - Routine HEENT Exam Eye: Present: PERRL ENT: Present: mucous membranes moist - Routine Respiratory Exam Present: decreased breath sounds - Routine Cardiovascular Exam Present: S1, S2 - Routine Abdominal Exam Present: soft, normoactive bowel sounds - Routine Neurological Exam Present: alert - Routine Psychiatric Exam Present: cooperative - Urinary Catheter Management Indwelling Urethral Catheter Cath placed during this visit: yes Reason for continuing: Other continuation reason Insertion date: 05/22/18 Insertion time: 10:30 Assessment and Plan - Assessment (1) Hypercapnia Code(s): R06.89 - Other abnormalities of breathing Status: Acute (2) COPD (chronic obstructive pulmonary disease) Code(s): J44.9 - Chronic obstructive pulmonary disease, unspecified Status: Acute - Assessment and Plan icu admission pulmonary consult 05/23/18- Off bipap this an, sat's maintained on NC. Pulmonary following.Cont to follow Rec's PFT today. Bronchodilators, Solu Medrol, Zithromax, Cefepime.
[2018-05-23] MEDS: Enoxaparin Inj 30 MG/0.3 ML Syringe SQ SCH (15:29)
[2018-05-23] MEDS: Azithromycin Inj 500 MG in Sodium Chlor 0.9% Inj 250 ML IV.SIG SCH (15:29)
[2018-05-23 17:11] LABS: Hematocrit 38.1 % (35.0-46.0); Hemoglobin 11.8 gm/dL (11.6-15.3); Mean Corpuscular Hemoglobin 27.2 pg (27.0-34.0); Mean Corpuscular Volume 87.7 fL (80.0-100.0); Mean Platelet Volume 9.5 fL (7.0-11.0); Platelet Count 171 th/mm3 (150-450); Red Blood Count 4.35 mil/mm3 (4.00-5.30); Red Cell Distribution Width 14.9 % (11.6-17.2); White Blood Count 5.5 th/mm3 (4.0-11.0)
[2018-05-23 18:52] LABS: ABG Base Excess 4.8 mmol/L (-2-2); ABG PCO2 52 mmHg (38-42); ABG PO2 60 mmHg (61-120)
--- NOTE | 2018-05-23 19:43 | P.PN ---
Subjective Interval history: She is better. No chest pain. ABG improved. Was on BiPAP last nite Physical Exam Vital signs: Vital Signs 05/22/18 20:00 05/22/18 21:00 05/22/18 21:50 Temperature 98.2 F Pulse Rate 62 62 Respiratory Rate 20 19 Blood Pressure 131/60 142/64 H Pulse Oximetry 91 L 94 L 94 L 05/22/18 22:00 05/22/18 22:22 05/22/18 23:00 Temperature Pulse Rate 66 66 70 Respiratory Rate 16 20 25 H Blood Pressure 121/62 128/59 L Pulse Oximetry 96 95 93 L 05/23/18 00:00 05/23/18 01:00 05/23/18 01:46 Temperature Pulse Rate 64 64 Respiratory Rate 19 18 Blood Pressure 110/59 L 106/49 L Pulse Oximetry 96 95 94 L 05/23/18 03:16 05/23/18 04:30 05/23/18 05:00 Temperature Pulse Rate 66 56 L 60 Respiratory Rate 32 H 16 19 Blood Pressure 119/69 151/65 H Pulse Oximetry 94 L 95 05/23/18 06:00 05/23/18 07:00 05/23/18 07:45 Temperature Pulse Rate 56 L 60 Respiratory Rate 18 15 Blood Pressure 148/70 H 154/65 H Pulse Oximetry 96 97 93 L 05/23/18 08:00 05/23/18 09:00 05/23/18 09:41 Temperature 98.3 F Pulse Rate 70 68 76 Respiratory Rate 29 H 23 26 H Blood Pressure 165/70 H 145/71 H Pulse Oximetry 92 L 93 L 92 L 05/23/18 10:00 05/23/18 11:00 05/23/18 12:00 Temperature 98.4 F Pulse Rate 70 72 74 Respiratory Rate 24 28 H 28 H Blood Pressure 142/59 H 135/58 L 133/69 Pulse Oximetry 92 L 92 L 91 L 05/23/18 13:00 05/23/18 14:00 05/23/18 15:00 Temperature Pulse Rate 72 82 82 Respiratory Rate 28 H 29 H 35 H Blood Pressure 140/62 123/56 L 119/57 L Pulse Oximetry 92 L 87 L 88 L 05/23/18 15:06 05/23/18 16:00 05/23/18 16:26 Temperature 98.7 F Pulse Rate 81 88 Respiratory Rate 20 41 H Blood Pressure 108/53 L Pulse Oximetry 88 L 05/23/18 17:00 05/23/18 18:00 Temperature Pulse Rate 82 82 Respiratory Rate 41 H 30 H Blood Pressure 103/51 L 140/65 Pulse Oximetry 93 L 94 L Intake & Output 05/23/18 05/23/18 05/24/18 06:59 18:59 06:59 Intake Total 1220 / 1220 490 / 490 720 / 720 Output Total 400 / 400 200 / 200 175 / 175 Balance 820 / 820 290 / 290 545 / 545 Weight 76.8 kg Intake: IV 1100 / 1100 250 / 250 D5W/1/2 NS Inj 1,000 ML @ 84 1000 / 1000 mls/hr IV.CONT .[id number] [facility] Rx# :[id number] Azithromycin Inj 500 MG In NS 250 / 250 Inj 250 ML @ 250 mls/hr IV.SIG Q24H [facility] Rx#:[id number] Maxipime Inj 2,000 MG In NS Inj 100 / 100 100 ML @ 200 mls/hr IV.SIG Q12H [facility] Rx#:[id number] Oral 120 / 120 240 / 240 720 / 720 Output: Urine 200 / 200 175 / 175 Urine Amount (Catheter) 400 / 400 Indwelling Urethral Catheter 400 / 400 Other: Date of Last Bowel Movement 05/22/18 GENERAL: Awake and answers questions SKIN: Warm and dry. HEAD: Atraumatic. Normocephalic. EYES: Pupils equal and round. No scleral icterus. No injection or drainage. ENT: No nasal bleeding or discharge. Mucous membranes pink and moist. NECK: Trachea midline. No JVD. CARDIOVASCULAR: Regular rate and rhythm. RESPIRATORY: No accessory muscle use. Occ Wheeze heard. Breath sounds equal bilaterally. GASTROINTESTINAL: Abdomen soft, non-tender, nondistended. Hepatic and splenic margins not palpable. MUSCULOSKELETAL: Extremities without clubbing, cyanosis, or edema. No obvious deformities. NEUROLOGICAL: Awake and alert. Motor grossly within normal limits. Has some cognitive deficit.Five out of 5 muscle strength in the arms and legs. Normal speech. PSYCHIATRIC: Appropriate mood and affect. - Urinary Catheter Management Indwelling Urethral Catheter Cath placed during this visit: yes Reason for continuing: Other continuation reason Insertion date: 05/22/18 Insertion time: 10:30 Results - Labs CBC & Chem 7: 05/23/18 17:00 05/23/18 04:37 Laboratory Results - last 24 hr 05/22/18 05/23/18 05/23/18 22:02 04:37 08:00 CBC w Diff WBC RBC Hgb Hct MCV MCH MCHC RDW Plt Count MPV Neut % (Auto) Lymph % (Auto) [place] % (Auto) Eos % (Auto) Baso % (Auto) Neut # (Auto) Lymph # (Auto) [place] # (Auto) Eos # (Auto) Baso # (Auto) WBC Differential Differential Comment Puncture Site Patient Temperature O2 Saturation ABG pH ABG pCO2 ABG pO2 ABG HCO3 ABG O2 Content ABG Base Excess ABG Methemoglobin Curt Test Hemoglobin Carboxyhemoglobin O2 Delivery Device Liter Flow Critical Value Sodium 144 Potassium 5.1 D Chloride 107 Carbon Dioxide 34.5 H Anion Gap 3 L BUN 31 H Creatinine 1.50 H Estimated GFR 35 L POC Glucose 100 125 H Random Glucose 134 H Calcium 8.2 L Total Bilirubin 0.4 AST 21 ALT 22 Alkaline Phosphatase 76 Total Protein 6.9 D Albumin 2.4 L 05/23/18 05/23/18 05/23/18 08:10 11:49 17:00 CBC w Diff Auto diff final WBC 2.8 L 5.5 D RBC 4.48 4.35 Hgb 12.1 11.8 Hct 39.1 38.1 MCV 87.3 87.7 MCH 27.0 27.2 MCHC 30.9 L 31.0 L RDW 15.4 14.9 Plt Count 154 171 MPV 9.3 9.5 Neut % (Auto) 86.5 H Lymph % (Auto) 11.9 [place] % (Auto) 0.4 Eos % (Auto) 0.0 Baso % (Auto) 1.2 Neut # (Auto) 2.5 Lymph # (Auto) 0.3 L [place] # (Auto) 0.0 Eos # (Auto) 0.0 Baso # (Auto) 0.0 WBC Differential . Differential Comment . Puncture Site Patient Temperature O2 Saturation ABG pH ABG pCO2 ABG pO2 ABG HCO3 ABG O2 Content ABG Base Excess ABG Methemoglobin Curt Test Hemoglobin Carboxyhemoglobin O2 Delivery Device Liter Flow Critical Value Sodium Potassium Chloride Carbon Dioxide Anion Gap BUN Creatinine Estimated GFR POC Glucose 133 H Random Glucose Calcium Total Bilirubin AST ALT Alkaline Phosphatase Total Protein Albumin 05/23/18 18:48 CBC w Diff WBC RBC Hgb Hct MCV MCH MCHC RDW Plt Count MPV Neut % (Auto) Lymph % (Auto) [place] % (Auto) Eos % (Auto) Baso % (Auto) Neut # (Auto) Lymph # (Auto) [place] # (Auto) Eos # (Auto) Baso # (Auto) WBC Differential Differential Comment Puncture Site Left radial Patient Temperature 98.6 O2 Saturation 90 ABG pH 7.37 L ABG pCO2 52 H* ABG pO2 60 L ABG HCO3 30 H ABG O2 Content 14.4 ABG Base Excess 4.8 H ABG Methemoglobin 0.5 Curt Test Present Hemoglobin 11.4 L Carboxyhemoglobin 1.6 O2 Delivery Device Nasal cannula Liter Flow 1.00 Critical Value Yes Sodium Potassium Chloride Carbon Dioxide Anion Gap BUN Creatinine Estimated GFR POC Glucose Random Glucose Calcium Total Bilirubin AST ALT Alkaline Phosphatase Total Protein Albumin Microbiology 05/22/18 08:25 Blood - Peripheral Aerobic Blood Culture - Preliminary No growth in 1 day 05/22/18 08:25 Blood - Peripheral Anaerobic Blood Culture - Preliminary No growth in 1 day 05/22/18 08:20 Blood - Peripheral Aerobic Blood Culture - Preliminary No growth in 1 day 05/22/18 08:20 Blood - Peripheral Anaerobic Blood Culture - Preliminary No growth in 1 day - Imaging Impressions Chest CT 05/23/18 00:36 CONCLUSION: 1. Small bilateral pleural effusions, right larger than left. In the right lower lobe adjacent to the pleural fluid is atelectasis versus airspace consolidation. 2. Possible gallbladder wall edema. 3. Severe coronary artery calcification and atherosclerotic disease. Assessment and Plan - Assessment (1) Pneumonia Code(s): J18.9 - Pneumonia, unspecified organism Status: Acute (2) Acute hypercapnic respiratory failure Code(s): J96.02 - Acute respiratory failure with hypercapnia Status: Acute (3) Hypercapnia Code(s): R06.89 - Other abnormalities of breathing Status: Acute (4) COPD (chronic obstructive pulmonary disease) Code(s): J44.9 - Chronic obstructive pulmonary disease, unspecified Status: Acute - Plan 1. Continue antibiotics and switch to PO 2. O2 at 2 L. 3. Taper solumedrol to 40 mg BID and D/C in am 4. Continue Duoneb nebs qid. 5. Continue BiPAP at HS if Patient agrees.
[2018-05-24] MEDS: Dextrose 5%/NaCl 0.45% Inj 1,000 ML IV.CONT SCH ×3 (04:41→19:03)
[2018-05-24] MEDS: Chlorhexidine Gluconate 2% 1 Pack (2 Cloths) TOPICAL SCH (04:41)
[2018-05-24] MEDS: Budesonide-Formoterol 160/4.5 MCG 6 GM Inhaler INH SCH ×2 (08:06→22:58)
[2018-05-24] MEDS: MethylPREDNISolone Sod Succinate Inj 40 MG/ML Vial IV.PUSH SCH ×2 (08:08→22:57)
[2018-05-24] MEDS: Pantoprazole Inj 40 MG Vial IV.PUSH SCH (08:08)
[2018-05-24] MEDS: Azithromycin 250 MG Tablet PO SCH (08:09)
--- NOTE | 2018-05-24 12:11 | P.PNFP ---
Subjective Interval history: Remains with respirations in the 30s but tells me breathing is doing better. On BiPap overnight. Being treated for PNA and is afebrile. Results - Labs Result diagrams: 05/23/18 17:00 05/23/18 04:37 Abnormal lab results 05/23/18 05/23/18 05/23/18 Range/Units 11:49 17:00 18:48 MCHC 31.0 L (32.0-36.0) % ABG pH 7.37 L (7.380-7.420) ABG pCO2 52 H* (38-42) mmHg ABG pO2 60 L (61-120) mmHg ABG HCO3 30 H (22-26) mmol/L ABG Base Excess 4.8 H (-2-2) mmol/L Hemoglobin 11.4 L (12.0-16.0) G/DL POC Glucose 133 H (68-110) mg/dl Short CBC 05/23/18 Range/Units 17:00 WBC 5.5 D (4.0-11.0) th/mm3 Hgb 11.8 (11.6-15.3) gm/dL Hct 38.1 (35.0-46.0) % Plt Count 171 (150-450) th/mm3 Physical Exam Vital signs: Vital Signs 05/23/18 13:00 05/23/18 14:00 05/23/18 15:00 Temperature Pulse Rate 72 82 82 Respiratory Rate 28 H 29 H 35 H Blood Pressure 140/62 123/56 L 119/57 L Pulse Oximetry 92 L 87 L 88 L 05/23/18 15:06 05/23/18 16:00 05/23/18 16:26 Temperature 98.7 F Pulse Rate 81 88 Respiratory Rate 20 41 H Blood Pressure 108/53 L Pulse Oximetry 88 L 05/23/18 17:00 05/23/18 18:00 05/23/18 19:00 Temperature 97.7 F Pulse Rate 82 82 84 Respiratory Rate 41 H 30 H 37 H Blood Pressure 103/51 L 140/65 118/62 Pulse Oximetry 93 L 94 L 91 L 05/23/18 20:00 05/23/18 21:00 05/23/18 21:45 Temperature 97.7 F Pulse Rate 84 79 80 Respiratory Rate 23 Blood Pressure 118/84 120/61 Pulse Oximetry 91 L 91 L 92 L 05/23/18 21:56 05/23/18 23:00 05/24/18 00:00 Temperature 97.8 F Pulse Rate 79 79 Respiratory Rate 20 18 22 Blood Pressure 117/63 115/57 L 112/62 Pulse Oximetry 91 L 91 L 92 L 05/24/18 00:42 05/24/18 01:50 05/24/18 02:54 Temperature 98.2 F Pulse Rate 115 H 76 Respiratory Rate 26 H 22 26 H Blood Pressure 130/84 133/62 134/62 Pulse Oximetry 95 94 L 90 L 05/24/18 03:00 05/24/18 04:00 05/24/18 05:00 Temperature 97.5 F L Pulse Rate 70 82 81 Respiratory Rate 22 18 21 Blood Pressure 120/58 L 126/60 Pulse Oximetry 92 L 93 L 05/24/18 06:00 05/24/18 07:00 05/24/18 08:00 Temperature 97.8 F Pulse Rate 78 78 76 Respiratory Rate 10 L 17 28 H Blood Pressure 125/61 126/95 H 144/74 H Pulse Oximetry 94 L 94 L 92 L 05/24/18 09:00 05/24/18 10:00 05/24/18 10:15 Temperature Pulse Rate 82 80 79 Respiratory Rate 23 25 H 24 Blood Pressure 137/73 Pulse Oximetry 94 L 91 L 99 Intake & Output 05/23/18 05/24/18 05/24/18 18:59 06:59 18:59 Intake Total 490 / 490 2080 / 2080 100 / 100 Output Total 200 / 200 375 / 375 Balance 290 / 290 1705 / 1705 100 / 100 Weight 78.4 kg Intake: IV 250 / 250 1000 / 1000 100 / 100 D5W/1/2 NS Inj 1,000 ML @ 84 1000 / 1000 mls/hr IV.CONT .[id number] [facility] Rx# :[id number] Azithromycin Inj 500 MG In NS 250 / 250 Inj 250 ML @ 250 mls/hr IV.SIG Q24H [facility] Rx#:[id number] Maxipime Inj 1,000 MG In NS Inj 100 / 100 100 ML @ 200 mls/hr IV.SIG Q24H [facility] Rx#:[id number] Oral 240 / 240 1080 / 1080 Output: Urine 200 / 200 175 / 175 Urine Amount (Catheter) 200 / 200 Indwelling Urethral Catheter 200 / 200 Other: Date of Last Bowel Movement 05/22/18 - Constitutional mild distress - Routine HEENT Exam Head: Present: normocephalic, atraumatic Eye: Present: normal accommodation ENT: Present: mucous membranes moist - Routine Neck Exam Present: supple, full ROM - Routine Respiratory Exam Present: decreased breath sounds, wheezes - Routine Cardiovascular Exam Present: RRR, S1, S2 - Routine Abdominal Exam Present: soft, normoactive bowel sounds - Routine Extremities Exam Present: full ROM - Routine Skin Exam Present: intact - Routine Neurological Exam Present: alert - Detailed Neurological Exam: Coma Scale Eye Opening: Spontaneous Verbal Response: Oriented Motor Response: Obey commands [place] Coma Scale Total: 15 - Routine Psychiatric Exam Present: normal affect - Urinary Catheter Management Indwelling Urethral Catheter Cath placed during this visit: yes Urethral indwelling: Yes Reason for continuing: Other continuation reason Insertion date: 05/22/18 Insertion time: 10:30 Assessment and Plan - Assessment (1) Hypercapnia Code(s): R06.89 - Other abnormalities of breathing Status: Acute Plan: Pulm following and treating for PNA and with high dose steroids and BiPap. (2) COPD (chronic obstructive pulmonary disease) Code(s): J44.9 - Chronic obstructive pulmonary disease, unspecified Status: Acute Plan: Cont plan per Pulmonary. (3) Pneumonia Code(s): J18.9 - Pneumonia, unspecified organism Status: Acute Plan: Antibiotics and steroids per Pulmonary. - Assessment and Plan icu admission pulmonary consult 05/23/18- Off bipap this am, sat's maintained on NC. Pulmonary following and is treating for PNA. Cont to follow Rec's PFT today. Bronchodilators, Solu Medrol, Zithromax, Cefepime. F/U Pulm recommendations and monitor closely. (3) Pneumonia Qualifiers: Pneumonia type: due to unspecified organism Laterality: right Lung location : lower lobe of lung Qualified Code(s): J18.1 - Lobar pneumonia, unspecified organism
[2018-05-24] MEDS: Enoxaparin Inj 30 MG/0.3 ML Syringe SQ SCH (14:47)
[2018-05-24] MEDS: predniSONE 20 MG Tablet PO SCH (22:57)
[2018-05-25] MEDS: Dextrose 5%/NaCl 0.45% Inj 1,000 ML IV.CONT SCH ×2 (04:45→18:37)
[2018-05-25] MEDS: Chlorhexidine Gluconate 2% 1 Pack (2 Cloths) TOPICAL SCH (04:46)
[2018-05-25 08:55] LABS: Baso % (Auto) 0.1 % (0.0-2.0); Hematocrit 32.8 % (35.0-46.0); Hemoglobin 10.5 gm/dL (11.6-15.3); Lymph # (Auto) 0.2 th/mm3 (1.0-4.8); Lymph % (Auto) 2.7 % (9.0-44.0); Mean Corpuscular HGB Conc 32.1 % (32.0-36.0); Mean Corpuscular Hemoglobin 27.4 pg (27.0-34.0); Mean Corpuscular Volume 85.1 fL (80.0-100.0); Mean Platelet Volume 8.7 fL (7.0-11.0); Mono # (Auto) 0.2 th/mm3 (0.0-0.9); Mono % (Auto) 2.5 % (0.0-8.0); Neut # (Auto) 7.5 th/mm3 (1.8-7.7); Neut % (Auto) 94.7 % (16.0-70.0); Platelet Count 163 th/mm3 (150-450); Red Blood Count 3.86 mil/mm3 (4.00-5.30); Red Cell Distribution Width 15.9 % (11.6-17.2); White Blood Count 7.9 th/mm3 (4.0-11.0)
[2018-05-25] MEDS: Azithromycin 250 MG Tablet PO SCH (09:27)
[2018-05-25] MEDS: predniSONE 20 MG Tablet PO SCH ×2 (09:27→20:28)
[2018-05-25] MEDS: Pantoprazole Inj 40 MG Vial IV.PUSH SCH (09:27)
[2018-05-25] MEDS: Budesonide-Formoterol 160/4.5 MCG 6 GM Inhaler INH SCH ×2 (09:28→20:28)
[2018-05-25] MEDS: MethylPREDNISolone Sod Succinate Inj 40 MG/ML Vial IV.PUSH SCH (09:28)
[2018-05-25 10:09] LABS: Chloride 104 meq/L (98-107); Potassium 4.6 meq/L (3.5-5.1); Sodium 139 meq/L (136-145)
[2018-05-25 10:13] LABS: Albumin 2.4 g/dL (3.4-5.0); Anion Gap 4 meq/L (5-15); Blood Urea Nitrogen 32 mg/dL (7-18); Carbon Dioxide 31.1 meq/L (21.0-32.0); Glucose,Random 171 mg/dL (74-106)
[2018-05-25 10:16] LABS: Alanine Aminotransferase 24 U/L (10-53); Glomerular Filtration Rate 38 mL/min (>89)
[2018-05-25 10:17] LABS: Total Protein 6.5 g/dL (6.4-8.2)
[2018-05-25 10:18] LABS: Aspartate Aminotransferase 22 U/L (15-37)
[2018-05-25 10:19] LABS: Alkaline Phosphatase 64 U/L (45-117)
--- NOTE | 2018-05-25 11:34 | P.PNFP ---
Subjective Interval history: Her breathing is improved though still requiring O2 NC and still wheezing. Appears safe for transfer out of ICU. Order placed for transfer to medical floor. SM stopped and remains on Prednisone and antibiotics for PNA. Pulm following Results - Labs Result diagrams: 05/25/18 08:28 05/25/18 09:33 Abnormal lab results 05/25/18 05/25/18 Range/Units 08:28 09:33 RBC 3.86 L (4.00-5.30) mil/mm3 Hgb 10.5 L (11.6-15.3) gm/dL Hct 32.8 L (35.0-46.0) % Neut % (Auto) 94.7 H (16.0-70.0) % Lymph % (Auto) 2.7 L (9.0-44.0) % Lymph # (Auto) 0.2 L (1.0-4.8) th/mm3 Anion Gap 4 L (5-15) meq/L BUN 32 H (7-18) mg/dL Creatinine 1.40 H (0.50-1.00) mg/dL Estimated GFR 38 L (>89) mL/min Random Glucose 171 H (74-106) mg/dL Calcium 8.0 L (8.5-10.1) mg/dL Albumin 2.4 L (3.4-5.0) g/dL Short CBC 05/25/18 Range/Units 08:28 WBC 7.9 (4.0-11.0) th/mm3 Hgb 10.5 L (11.6-15.3) gm/dL Hct 32.8 L (35.0-46.0) % Plt Count 163 (150-450) th/mm3 [facility] 05/25/18 09:33 Sodium 139 Potassium 4.6 Chloride 104 Carbon Dioxide 31.1 BUN 32 H Creatinine 1.40 H Calcium 8.0 L Liver Function 05/25/18 Range/Units 09:33 Total Bilirubin 0.3 (0.2-1.0) mg/dL AST 22 (15-37) U/L ALT 24 (10-53) U/L Alkaline Phosphatase 64 (45-117) U/L Albumin 2.4 L (3.4-5.0) g/dL Physical Exam Vital signs: Vital Signs 05/24/18 12:00 05/24/18 13:17 05/24/18 14:17 Temperature 98.2 F Pulse Rate 92 H 80 76 Respiratory Rate 38 H 27 H 21 Blood Pressure 144/68 H 155/77 H Pulse Oximetry 87 L 92 L 92 L 05/24/18 14:27 05/24/18 15:17 05/24/18 16:17 Temperature 98 F Pulse Rate 80 82 82 Respiratory Rate 24 31 H 22 Blood Pressure 140/70 142/69 H Pulse Oximetry 90 L 86 L 05/24/18 17:17 05/24/18 18:17 05/24/18 19:00 Temperature Pulse Rate 92 H 82 76 Respiratory Rate 32 H 18 17 Blood Pressure 152/69 H 134/67 137/69 Pulse Oximetry 91 L 91 L 05/24/18 19:37 05/24/18 20:00 05/24/18 21:00 Temperature 98 F Pulse Rate 76 74 74 Respiratory Rate 32 H Blood Pressure 141/86 H 141/96 H Pulse Oximetry 91 L 93 L 92 L 05/24/18 21:29 05/24/18 22:00 05/24/18 23:00 Temperature Pulse Rate 82 82 79 Respiratory Rate 18 13 22 Blood Pressure 137/57 L 125/55 L Pulse Oximetry 93 L 93 L 93 L 05/25/18 00:00 05/25/18 01:00 05/25/18 01:55 Temperature 98.5 F Pulse Rate 88 74 78 Respiratory Rate 16 15 17 Blood Pressure 120/55 L 120/55 L 119/54 L Pulse Oximetry 94 L 93 L 93 L 05/25/18 03:00 05/25/18 04:00 05/25/18 04:10 Temperature 98.6 F 98.6 F Pulse Rate 74 78 86 Respiratory Rate 19 19 18 Blood Pressure 112/58 L 145/63 H Pulse Oximetry 91 L 93 L 05/25/18 05:00 05/25/18 06:00 05/25/18 09:41 Temperature Pulse Rate 75 79 89 Respiratory Rate 15 26 H 24 Blood Pressure 120/71 126/57 L Pulse Oximetry 91 L 93 L 92 L Intake & Output 05/24/18 05/25/18 05/25/18 18:59 06:59 18:59 Intake Total 580 / 580 1360 / 1360 Output Total 850 / 850 500 / 500 Balance -270 / -270 860 / 860 Weight 80.3 kg Intake: IV 100 / 100 1000 / 1000 D5W/1/2 NS Inj 1,000 ML @ 84 1000 / 1000 mls/hr IV.CONT .[id number] [facility] Rx# :[id number] Maxipime Inj 1,000 MG In NS Inj 100 / 100 100 ML @ 200 mls/hr IV.SIG Q24H [facility] Rx#:[id number] Oral 480 / 480 360 / 360 Output: Urine 500 / 500 Urine Amount (Catheter) 850 / 850 Indwelling Urethral Catheter 850 / 850 Other: Date of Last Bowel Movement 05/22/18 # Bowel Movements 0 - Constitutional no acute distress - Routine HEENT Exam Head: Present: normocephalic Eye: Present: normal accommodation ENT: Present: mucous membranes moist - Routine Neck Exam Present: supple, full ROM - Routine Respiratory Exam Present: rales, wheezes, distant breath sounds - Routine Cardiovascular Exam Present: RRR, S1, S2 - Routine Abdominal Exam Present: soft, normoactive bowel sounds - Routine Extremities Exam Present: full ROM - Routine Skin Exam Present: intact - Routine Neurological Exam Present: alert Answers questions but almost child like in her responses. - Detailed Neurological Exam: Coma Scale Eye Opening: Spontaneous Verbal Response: Oriented Motor Response: Obey commands [place] Coma Scale Total: 15 - Routine Psychiatric Exam Present: normal affect, cooperative - Urinary Catheter Management Indwelling Urethral Catheter Cath placed during this visit: yes Urethral indwelling: No Reason for continuing: Not indwelling catheter Insertion date: 05/22/18 Insertion time: 10:30 Assessment and Plan - Assessment (1) Hypercapnia Code(s): R06.89 - Other abnormalities of breathing Status: Acute Plan: Pulm following and treating for PNA and now off SM on oral Prednisone and no longer requiring BiPap but remains on O2 NC. (2) COPD (chronic obstructive pulmonary disease) Code(s): J44.9 - Chronic obstructive pulmonary disease, unspecified Status: Acute Plan: Cont plan per Pulmonary. (3) Pneumonia Code(s): J18.9 - Pneumonia, unspecified organism Status: Acute Plan: Antibiotics and steroids per Pulmonary. - Assessment and Plan icu admission pulmonary consult 05/23/18- Off bipap this am, sat's maintained on NC. Pulmonary following and is treating for PNA. Cont to follow Rec's PFT today. Bronchodilators, Solu Medrol, Zithromax, Cefepime. F/U Pulm recommendations and monitor closely. 05/24/18 - Better but still required BiPap last night. Still wheezing but tells me she is improved. Cont antibiotics and steroids per Pulm. 05/25/18 - Now on O2 NC without BiPap last night. Again wheezing persists with scattered rales. She is off IV SM and on PO steroids and antibiotics. RN tells me wants SNF placement when ready for D/C. restaurant assistant manager consulted to arrange as she will likely be ready for hospital D/C soon. Transferring to medical floor today. (3) Pneumonia Qualifiers: Pneumonia type: due to unspecified organism Laterality: right Lung location : lower lobe of lung Qualified Code(s): J18.1 - Lobar pneumonia, unspecified organism
[2018-05-25] MEDS: Enoxaparin Inj 30 MG/0.3 ML Syringe SQ SCH (16:00)
[2018-05-26] MEDS: Chlorhexidine Gluconate 2% 1 Pack (2 Cloths) TOPICAL SCH (03:18)
[2018-05-26] MEDS: Levothyroxine 112 MCG Tablet PO SCH (05:13)
--- NOTE | 2018-05-26 08:14 | P.PNFP ---
Subjective Interval history: Patient Reports uneventful night Denies CP, SOB with exertion Sat's maintained on NC Results - Labs Result diagrams: 05/25/18 08:28 05/25/18 09:33 Abnormal lab results 05/25/18 05/25/18 Range/Units 08:28 09:33 RBC 3.86 L (4.00-5.30) mil/mm3 Hgb 10.5 L (11.6-15.3) gm/dL Hct 32.8 L (35.0-46.0) % Neut % (Auto) 94.7 H (16.0-70.0) % Lymph % (Auto) 2.7 L (9.0-44.0) % Lymph # (Auto) 0.2 L (1.0-4.8) th/mm3 Anion Gap 4 L (5-15) meq/L BUN 32 H (7-18) mg/dL Creatinine 1.40 H (0.50-1.00) mg/dL Estimated GFR 38 L (>89) mL/min Random Glucose 171 H (74-106) mg/dL Calcium 8.0 L (8.5-10.1) mg/dL Albumin 2.4 L (3.4-5.0) g/dL Short CBC 05/25/18 Range/Units 08:28 WBC 7.9 (4.0-11.0) th/mm3 Hgb 10.5 L (11.6-15.3) gm/dL Hct 32.8 L (35.0-46.0) % Plt Count 163 (150-450) th/mm3 BMP 05/25/18 09:33 Sodium 139 Potassium 4.6 Chloride 104 Carbon Dioxide 31.1 BUN 32 H Creatinine 1.40 H Calcium 8.0 L Liver Function 05/25/18 Range/Units 09:33 Total Bilirubin 0.3 (0.2-1.0) mg/dL AST 22 (15-37) U/L ALT 24 (10-53) U/L Alkaline Phosphatase 64 (45-117) U/L Albumin 2.4 L (3.4-5.0) g/dL Physical Exam Vital signs: Vital Signs 05/25/18 08:17 05/25/18 09:00 05/25/18 09:17 Temperature Pulse Rate 76 Respiratory Rate 22 Blood Pressure 138/60 165/75 H Pulse Oximetry 91 L 92 L 92 L 05/25/18 09:41 05/25/18 10:00 05/25/18 10:17 Temperature Pulse Rate 89 92 H 90 Respiratory Rate 24 28 H 23 Blood Pressure 150/66 H Pulse Oximetry 92 L 92 L 91 L 05/25/18 11:00 05/25/18 11:17 05/25/18 12:00 Temperature Pulse Rate 92 H 94 H 96 H Respiratory Rate 34 H 31 H 31 H Blood Pressure 156/70 H 140/79 Pulse Oximetry 92 L 93 L 92 L 05/25/18 12:17 05/25/18 13:00 05/25/18 13:15 Temperature Pulse Rate 98 H 92 H 92 H Respiratory Rate 31 H 27 H 25 H Blood Pressure 158/68 H Pulse Oximetry 92 L 92 L 92 L 05/25/18 13:17 05/25/18 14:00 05/25/18 14:17 Temperature Pulse Rate 94 H 88 92 H Respiratory Rate 29 H 23 34 H Blood Pressure 154/73 H 141/70 H Pulse Oximetry 92 L 93 L 94 L 05/25/18 14:57 05/25/18 15:00 05/25/18 15:29 Temperature 99 F Pulse Rate 90 86 Respiratory Rate 22 27 H Blood Pressure Pulse Oximetry 93 L 05/25/18 16:00 05/25/18 17:00 05/25/18 20:00 Temperature 98.1 F Pulse Rate 94 H 96 H 99 H Respiratory Rate 31 H 36 H Blood Pressure Pulse Oximetry 91 L 83 L 05/25/18 21:00 05/25/18 21:18 05/26/18 00:00 Temperature 97.4 F L Pulse Rate 87 83 Respiratory Rate 21 18 18 Blood Pressure 178/77 H Pulse Oximetry 91 L 93 L 05/26/18 00:41 05/26/18 04:00 05/26/18 04:01 Temperature 98.3 F 97.4 F L Pulse Rate 84 79 79 Respiratory Rate 22 18 18 Blood Pressure 137/70 142/67 H Pulse Oximetry 91 L 92 L Intake & Output 05/25/18 05/26/18 05/26/18 18:59 06:59 18:59 Intake Total 621 / 621 240 / 240 Output Total 425 / 425 Balance 196 / 196 240 / 240 Weight 80 kg Intake: IV 100 / 100 Maxipime Inj 1,000 MG In NS Inj 100 / 100 100 ML @ 200 mls/hr IV.SIG Q24H [facility] Rx#:[id number] Oral 521 / 521 240 / 240 Output: Urine 425 / 425 Other: # Voids 1 1 Date of Last Bowel Movement 05/22/18 05/22/18 # Bowel Movements 1 - Constitutional no acute distress - Routine HEENT Exam Head: Present: normocephalic ENT: Present: mucous membranes moist - Routine Neck Exam Present: supple - Routine Respiratory Exam Present: wheezes, diminished air movement - Routine Cardiovascular Exam Present: S1, S2 - Routine Abdominal Exam Present: soft, normoactive bowel sounds - Routine Skin Exam Present: erythema Comments: B/L Arms - Routine Neurological Exam Present: alert - Urinary Catheter Management Indwelling Urethral Catheter Cath placed during this visit: yes Urethral indwelling: No Reason for continuing: Not indwelling catheter Insertion date: 05/22/18 Insertion time: 10:30 Assessment and Plan - Assessment (1) Hypercapnia Code(s): R06.89 - Other abnormalities of breathing Status: Acute Plan: Pulm following and treating for PNA and now off SM on oral Prednisone and no longer requiring BiPap but remains on O2 NC. (2) COPD (chronic obstructive pulmonary disease) Code(s): J44.9 - Chronic obstructive pulmonary disease, unspecified Status: Acute Plan: Cont plan per Pulmonary. (3) Pneumonia Code(s): J18.9 - Pneumonia, unspecified organism Status: Acute Plan: Antibiotics and steroids per Pulmonary. - Assessment and Plan icu admission pulmonary consult 05/23/18- Off bipap this am, sat's maintained on NC. Pulmonary following and is treating for PNA. Cont to follow Rec's PFT today. Bronchodilators, Solu Medrol, Zithromax, Cefepime. F/U Pulm recommendations and monitor closely. 05/24/18 - Better but still required BiPap last night. Still wheezing but tells me she is improved. Cont antibiotics and steroids per Pulm. 05/25/18 - Now on O2 NC without BiPap last night. Again wheezing persists with scattered rales. She is off IV SM and on PO steroids and antibiotics. RN tells me wants SNF placement when ready for D/C. manager rn consulted to arrange as she will likely be ready for hospital D/C soon. Transferring to medical floor today. Sat's ,maintained on NC. VSS afebrile. She does have some wheezing and moist cough. Started on Po steroids. Cont bronchodilators, antibiotics. She voices she is going to [place]. Likely Dc to rehab in am if cleared by Pulmonary. (3) Pneumonia Qualifiers: Pneumonia type: due to unspecified organism Laterality: right Lung location : lower lobe of lung Qualified Code(s): J18.1 - Lobar pneumonia, unspecified organism
[2018-05-26] MEDS: predniSONE 20 MG Tablet PO SCH ×2 (08:51→20:06)
[2018-05-26] MEDS: amLODIPine 5 MG Tablet PO SCH (08:51)
[2018-05-26] MEDS: Allopurinol 100 MG Tablet PO SCH (08:51)
[2018-05-26] MEDS: Azithromycin 250 MG Tablet PO SCH (08:51)
[2018-05-26] MEDS: Pantoprazole Inj 40 MG Vial IV.PUSH SCH (08:51)
[2018-05-26] MEDS: Budesonide-Formoterol 160/4.5 MCG 6 GM Inhaler INH SCH ×2 (08:52→20:07)
[2018-05-26] MEDS: Enoxaparin Inj 30 MG/0.3 ML Syringe SQ SCH (16:17)
--- NOTE | 2018-05-26 17:48 | P.PN ---
Subjective Interval history: she is better today . has some wheezing. Still on O2 2 l. Physical Exam Vital signs: Vital Signs 05/25/18 20:00 05/25/18 21:00 05/25/18 21:18 Temperature 97.4 F L Pulse Rate 99 H 87 83 Respiratory Rate 21 18 Blood Pressure 178/77 H Pulse Oximetry 91 L 93 L 05/26/18 00:00 05/26/18 00:41 05/26/18 04:00 Temperature 98.3 F 97.4 F L Pulse Rate 84 79 Respiratory Rate 18 22 18 Blood Pressure 137/70 142/67 H Pulse Oximetry 91 L 92 L 05/26/18 04:01 05/26/18 08:00 05/26/18 09:53 Temperature 97.1 F L Pulse Rate 79 77 Respiratory Rate 18 18 Blood Pressure 167/73 H Pulse Oximetry 92 L 91 L 05/26/18 12:00 05/26/18 15:00 05/26/18 16:00 Temperature 98.0 F 99.3 F Pulse Rate 85 75 77 Respiratory Rate 18 20 18 Blood Pressure 144/68 H 131/65 Pulse Oximetry 94 L 94 L Intake & Output 05/25/18 05/26/18 05/26/18 18:59 06:59 18:59 Intake Total 621 / 621 240 / 240 100 / 100 Output Total 425 / 425 Balance 196 / 196 240 / 240 100 / 100 Weight 80 kg Intake: IV 100 / 100 100 / 100 Maxipime Inj 1,000 MG In NS Inj 100 / 100 100 / 100 100 ML @ 200 mls/hr IV.SIG Q24H OMEGA Rx#:[id number] Oral 521 / 521 240 / 240 Output: Urine 425 / 425 Other: # Voids 1 1 Date of Last Bowel Movement 05/22/18 05/22/18 # Bowel Movements 1 GENERAL: SKIN: Warm and dry. HEAD: Atraumatic. Normocephalic. EYES: Pupils equal and round. No scleral icterus. No injection or drainage. ENT: No nasal bleeding or discharge. Mucous membranes pink and moist. NECK: Trachea midline. No JVD. CARDIOVASCULAR: Regular rate and rhythm. RESPIRATORY: No accessory muscle use. Bilateral wheeze on auscultation. Breath sounds equal bilaterally. GASTROINTESTINAL: Abdomen soft, non-tender, nondistended. Hepatic and splenic margins not palpable. MUSCULOSKELETAL: Extremities without clubbing, cyanosis, or edema. No obvious deformities. NEUROLOGICAL: Awake and alert. No obvious cranial nerve deficits. Motor grossly within normal limits. Five out of 5 muscle strength in the arms and legs. Normal speech. PSYCHIATRIC: Appropriate mood and affect. - Urinary Catheter Management Indwelling Urethral Catheter Cath placed during this visit: yes Urethral indwelling: No Reason for continuing: Not indwelling catheter Insertion date: 05/22/18 Insertion time: 10:30 Results - Labs CBC & Chem 7: 05/25/18 08:28 05/25/18 09:33 Microbiology 05/22/18 08:25 Blood - Peripheral Aerobic Blood Culture - Preliminary No growth in 4 days 05/22/18 08:25 Blood - Peripheral Anaerobic Blood Culture - Preliminary No growth in 4 days 05/22/18 08:20 Blood - Peripheral Aerobic Blood Culture - Preliminary No growth in 4 days 05/22/18 08:20 Blood - Peripheral Anaerobic Blood Culture - Preliminary No growth in 4 days Assessment and Plan - Assessment (1) Pneumonia Code(s): J18.9 - Pneumonia, unspecified organism Status: Acute (2) Acute hypercapnic respiratory failure Code(s): J96.02 - Acute respiratory failure with hypercapnia Status: Acute (3) Hypercapnia Code(s): R06.89 - Other abnormalities of breathing Status: Acute (4) COPD (chronic obstructive pulmonary disease) Code(s): J44.9 - Chronic obstructive pulmonary disease, unspecified Status: Acute - Plan 1. Continue antibiotics PO Ceftin 500 mg BID for 5 days 2. O2 at 2 L. and arrange home O2 2 L 3. Prednisone 10 mg BID X 7 days 4. Continue Duoneb nebs qid. 5. D/C BiPAP at HS 6. Home in am and will F/U as OP in 3 weeks (1) Pneumonia Qualifiers: Pneumonia type: due to unspecified organism Laterality: right Lung location : lower lobe of lung Qualified Code(s): J18.1 - Lobar pneumonia, unspecified organism
[2018-05-26] MEDS: Dextrose 5%/NaCl 0.45% Inj 1,000 ML IV.CONT SCH (23:55)
[2018-05-27] MEDS: Chlorhexidine Gluconate 2% 1 Pack (2 Cloths) TOPICAL SCH (04:02)
[2018-05-27 04:31] VITALS: RESP 20
[2018-05-27] MEDS: Levothyroxine 112 MCG Tablet PO SCH (05:38)
--- NOTE | 2018-05-27 08:14 | P.DS ---
Date of admission: 05/22/18 10:09 Primary care physician: UNKNOWN Attending physician on discharge: Montez Licona Anticipated date of discharge: 05/27/18 Brief History from admission: pt sent to ED when she bwecame sob at a catarract proceedure DS: Diagnosis - Discharge Diagnosis (1) Hypercapnia Status: Acute (2) COPD (chronic obstructive pulmonary disease) Status: Acute (3) Pneumonia Status: Acute DS: Summary Hospital Course: Admitted for SOB, to ICU, placed on Bipap weaned following day to VT. Pulmonary consulted. Treated with bronchodilators, solu medrol, then transitioned to po prednisone and ceftin. She will remain on O2, transfer to SNF - Time Spent with Patient Total time spent providing and/or coordinating discharge services: 30 Less than 30 minutes - Quality: AMI Clinical Trial Participant: No - Quality: VTE Deep Vein Thrombosis/Pulmonary Embolism Present on Admission: No Exam Vital signs: Vital Signs 05/26/18 09:53 05/26/18 12:00 05/26/18 15:00 Temperature 98.0 F Pulse Rate 85 75 Respiratory Rate 18 20 Blood Pressure 144/68 H Pulse Oximetry 91 L 94 L 05/26/18 16:00 05/26/18 19:20 05/26/18 20:00 Temperature 99.3 F 97.1 F L Pulse Rate 77 76 Respiratory Rate 18 22 Blood Pressure 131/65 167/76 H Pulse Oximetry 94 L 92 L 92 L 05/27/18 00:00 05/27/18 04:00 05/27/18 07:15 Temperature 98.4 F 98 F 97 F L Pulse Rate 79 69 67 Respiratory Rate 20 20 20 Blood Pressure 166/76 H 159/77 H 157/70 H Pulse Oximetry 92 L 92 L 92 L 05/27/18 07:33 Temperature Pulse Rate Respiratory Rate Blood Pressure Pulse Oximetry 93 L Intake & Output 05/26/18 05/27/18 05/27/18 18:59 06:59 18:59 Intake Total 1050 / 1050 1730 / 1730 100 / 100 Balance 1050 / 1050 1730 / 1730 100 / 100 Intake: IV 100 / 100 1000 / 1000 100 / 100 Maxipime Inj 1,000 MG In NS Inj 100 / 100 100 ML @ 200 mls/hr IV.SIG Q24H OMEGA Rx#:[id number] Oral 950 / 950 730 / 730 Other: # Voids 2 1 # Urine Diapers 1 Date of Last Bowel Movement 05/26/18 # Bowel Movements 0 - Constitutional no acute distress - Routine HEENT Exam Head: Present: normocephalic Eye: Present: PERRL ENT: Present: mucous membranes moist - Routine Neck Exam Present: supple - Routine Respiratory Exam Present: wheezes, diminished air movement - Routine Cardiovascular Exam Present: S1, S2 - Routine Abdominal Exam Present: soft, normoactive bowel sounds - Routine Neurological Exam Present: alert, oriented X3 - Routine Psychiatric Exam Present: cooperative Results Procedures completed during hospitalization: none Labs on day of discharge: Preliminary micro results at discharge 05/22/18 08:25 Aerobic Blood Culture - Preliminary Blood - Peripheral No growth in 4 days Anaerobic Blood Culture - Preliminary No growth in 4 days 05/22/18 08:20 Aerobic Blood Culture - Preliminary Blood - Peripheral No growth in 4 days Anaerobic Blood Culture - Preliminary No growth in 4 days - Impressions ITS Impressions Chest X-Ray 05/22/18 08:17 CONCLUSION: Mild bibasilar atelectasis. Chest CT 05/23/18 00:36 CONCLUSION: 1. Small bilateral pleural effusions, right larger than left. In the right lower lobe adjacent to the pleural fluid is atelectasis versus airspace consolidation. 2. Possible gallbladder wall edema. 3. Severe coronary artery calcification and atherosclerotic disease. Discharge Plan - Discharge Disposition Patient Disposition: Discharge to SNF - Discharge Condition Condition: Fair - Discharge Order Discharge Orders: Discharge Order (Routine); Ordered 05/27/18 Ordered By: Poornima Gonzales - Discharge Details Anticipated Discharge Date: 05/27/18 Discharge Comment: DC to SNF - Physicians Team Primary Care Provider: UNKNOWN, Attending Provider: Montez Licona Other Providers: Shaquille Rivers MD ; [employer]
[2018-05-27] MEDS: amLODIPine 5 MG Tablet PO SCH (08:22)
[2018-05-27] MEDS: predniSONE 20 MG Tablet PO SCH (08:22)
[2018-05-27] MEDS: Pantoprazole Inj 40 MG Vial IV.PUSH SCH (08:22)
[2018-05-27] MEDS: Allopurinol 100 MG Tablet PO SCH (08:22)
[2018-05-27] MEDS: Budesonide-Formoterol 160/4.5 MCG 6 GM Inhaler INH SCH (08:25)
[2018-05-27 11:10] VITALS: BP 158/74; PULSE 64; TEMP 96.9; O2SAT 92
== END 2018-05-27 11:54 ==
LOC: PHED 08:05 → PHEDA 10:09 → PHICU 13:47 → PH3 05-25 18:19
PROVIDERS: ADMIT Family Medicine; ATTEND Family Medicine

== ENCOUNTER 2018-07-08 14:25 | Inpatient (IN) ==
[2018-07-08] MEDS ORDERED: Mag Sulf 1 gm/100 ml Premix 100 ML IV.SIG ONE (14:37)
--- NOTE | 2018-07-08 14:44 | ED ---
HPI General Chief Complaint: Respiratory Symptoms Stated Complaint: Resp Time Seen by Provider: 07/08/18 14:29 Source: patient Mode of arrival: ambulatory Limitations: no limitations History of Present Illness Patient comes in complaining of shortness of breath since this morning, patient is oxygen dependent, has a previous history of congestive heart failure hypercapnic respiratory failure COPD and pneumonia. She also has a past medical history significant for gout TIA leukocytosis vitamin D deficiency Patient is a [facility] patient of Dr. Jac Vang MD Complaint: shortness of breath and "asthma attack" Onset (ago): day(s) (1) Context: recent illness Severity: severe Consistency/Duration: progressively worsening Relieving factors: oxygen Exacerbating factors: movement Known history of: COPD and congestive heart failure Associated symptoms: wheezing Treatment prior to arrival: bronchodilator and other Related Data Home oxygen amount: 2 liters Home Medications Medication Instructions Recorded Confirmed allopurinol 100 mg PO DAILY 05/21/18 07/08/18 amlodipine 5 mg PO DAILY 05/21/18 07/08/18 aspirin 81 mg PO DAILY 05/21/18 07/08/18 atorvastatin 20 mg PO DAILY 05/21/18 07/08/18 levothyroxine 112 mcg PO DAILY 05/21/18 07/08/18 metoprolol succinate 50 mg PO DAILY 05/21/18 07/08/18 melatonin 6 mg PO HS PRN 07/08/18 07/08/18 pantoprazole 40 mg PO DAILY 07/08/18 07/08/18 Previous Rx's Medication Instructions Recorded albuterol sulfate 2.5 mg NEB Q2HR NEB PRN ml 05/27/18 budesonide-formoterol [Symbicort] 2 puff INH BID g 05/27/18 Allergies Allergy/AdvReac Type Severity Reaction Status Date / Time Iodinated Contrast- Oral and Allergy Unknown Verified 05/22/18 08:35 IV Dye [Contrast] Review of Systems ROS: all other systems reviewed are negative PMFSH History History Provided By: Patient Medical History Medical History Anatomical narrow angle (Acute) Bandemia (Acute) Bilateral cataracts (Acute) CKD (chronic kidney disease) (Acute) Dementia (Acute) Gout (Acute) History of stroke (Acute) Hx of acute renal failure (Acute) Hyperlipidemia (Acute) Hypertension (Acute) Hypothyroidism (Acute) Leukocytosis (Acute) Mitral regurgitation (Acute) SOB (shortness of breath) (Acute) Syncope (Acute) TIA (transient ischemic attack) (Acute) Tricuspid regurgitation (Acute) Vitamin D deficiency (Acute) Surgical History Surgical History H/O craniotomy (Acute) Social History Social History Substance History: Unable to Obtain Second Hand Smoke Exposure: No Smoking Status: Unknown if ever smoked Tobacco Type: Cigarettes How Often Do You Have a Drink Containing Alcohol: Unable to Obtain Recent Travel in [facility] within the Last 8 Weeks: No Recent Out of Country Travel within the Last 8 Weeks: No Exam Narrative Exam Narrative: GENERAL: Elderly female in moderate respiratory distress SKIN: Warm and dry. HEAD: Atraumatic. Normocephalic. EYES: Pupils equal and round. No scleral icterus. No injection or drainage. ENT: No nasal bleeding or discharge. Mucous membranes pink and moist. NECK: Trachea midline. No JVD. CARDIOVASCULAR: Regular rate and rhythm. no rubs or gallops RESPIRATORY: accessory muscle use. Tripoding, 1 word dyspnea, bilateral wheezing and decreased tidal volume bilaterally. GASTROINTESTINAL: Abdomen soft, non-tender, nondistended. No rebound or guarding MUSCULOSKELETAL: Extremities without clubbing, cyanosis, or edema. No obvious deformities. NEUROLOGICAL: Awake and alert. No obvious cranial nerve deficits. Motor grossly within normal limits. Five out of 5 muscle strength in the arms and legs. Normal speech. PSYCHIATRIC: Appropriate mood and affect; insight and judgment normal. Procedures Intubation Time Out Performed: Yes Sedative: etomidate Mg Given: 20 Paralytic: succinylcholine Mg Given: 100 Laryngoscope: Navarrete ET Tube Size: 8 ET Tube Uncuffed: No Tube Secured Depth (cm): 24 Tube Secured Location: teeth Tube Placement Confirmation: visualized tube passing through cords, equal breath sounds bilaterally, no breath sounds over epigastrium and confirmation by capnometry Patient Tolerated Procedure: well Intubation Complications: none Course Initial Documented Vital Signs Temperature 99.9 F H 07/08/18 14:32 Pulse Rate 105 H 07/08/18 14:32 Respiratory Rate 26 H 07/08/18 14:32 Blood Pressure 163/71 H 07/08/18 14:32 Pulse Oximetry 91 L 07/08/18 14:32 Last Documented Vital Signs Temperature 99.9 F H 07/08/18 14:32 Pulse Rate 109 H 07/08/18 15:31 Respiratory Rate 40 H 07/08/18 15:31 Blood Pressure 155/62 H 07/08/18 15:31 Pulse Oximetry 92 L 07/08/18 15:52 Critical Care Time Critical Care Time: Yes Total Critical Care Time: 60 Attestation: Aggregate critical care time was 60 minutes. Time to perform other separately billable procedures was not included in the critical care time. My time did not include minutes spent treating any other patients simultaneously or on activities that did not directly contribute to the patient's treatment. The services I provided to this patient were to treat and/or prevent clinically significant deterioration that could result in: Increased hypercapnic respiratory failure leading to inadvertent aspiration further decline ultimately respiratory arrest and I provided critical care services requiring my management, as noted below: Chart data review, documentation time, medication orders and management, vital sign assessments/reviewing monitor data, ordering and reviewing lab tests, ordering and interpreting/reviewing x-rays and diagnostic studies, care of the patient and discussion of the patient with the admitting physicians. Medical Decision Making MDM Narrative Medical decision making narrative: WBCs 11.6, no neutrophilia, no anemia with H&H of 11.3 and 36. Coagulation profile is within normal limits ABG shows hypercapnic respiratory failure with pH of 7.24 PCO2 of 71 and a PaO2 of 63 and this was on 3 L nasal cannula Lactic acid 1.3 AST of 44, ALT of 35 Normal electrolytes. Mildly elevated creatinine of 1.32 however the patient has had a worse from going back to May [id number] the patient had a creatinine of 1.5, thus this is consistent with chronic renal insufficiency Please add to procedure note: Patient was intubated by DOROTHY Queen under my direct supervision. Please see her procedure note Medical Screen Exam Complete: Yes Emergency Medical Condition: Yes Differential Diagnosis Differential Diagnosis: COPD exacerbation versus CHF exacerbation versus pneumonia versus STEMI Medical Records Medical records reviewed: Yes I reviewed the patient's medical records. Lab Data Result diagrams: 07/08/18 14:40 07/08/18 14:40 Lab Results 07/08/18 07/08/18 07/08/18 Range/Units 14:40 14:40 14:40 WBC 11.6 H (4.0-11.0) th/mm3 RBC 4.20 (4.00-5.30) mil/mm3 Hgb 11.3 L (11.6-15.3) gm/dL Hct 36.0 (35.0-46.0) % MCV 85.7 (80.0-100.0) fL MCH 26.9 L (27.0-34.0) pg MCHC 31.4 L (32.0-36.0) % RDW 19.3 H (11.6-17.2) % Plt Count 252 (150-450) th/mm3 MPV 7.4 (7.0-11.0) fL Neut % (Auto) 73.3 H (16.0-70.0) % Lymph % (Auto) 15.7 (9.0-44.0) % [place] % (Auto) 10.7 H (0.0-8.0) % Eos % (Auto) 0.0 (0.0-4.0) % Baso % (Auto) 0.3 (0.0-2.0) % Neut # (Auto) 8.5 H (1.8-7.7) th/mm3 Lymph # (Auto) 1.8 (1.0-4.8) th/mm3 [place] # (Auto) 1.2 H (0.0-0.9) th/mm3 Eos # (Auto) 0.0 (0.0-0.4) th/mm3 Baso # (Auto) 0.0 (0.0-0.2) th/mm3 WBC Differential . Differential Comment Auto diff final PT 10.2 (9.8-11.6) sec INR 1.0 Ratio APTT 27.1 (24.3-30.1) sec Puncture Site Patient Temperature O2 Saturation (90-100) % ABG pH (7.380-7.420) ABG pCO2 (38-42) mmHg ABG pO2 (61-120) mmHg ABG HCO3 (22-26) mmol/L ABG O2 Content (12.0-20.0) Vol % ABG Base Excess (-2-2) mmol/L ABG Methemoglobin (0-2) % Curt Test Hemoglobin (12.0-16.0) G/DL Carboxyhemoglobin (0-4) % O2 Delivery Device Liter Flow L/M Critical Value Sodium 141 (136-145) meq/L Potassium 4.6 (3.5-5.1) meq/L Chloride 107 (98-107) meq/L Carbon Dioxide 25.6 (21.0-32.0) meq/L Anion Gap 8 (5-15) meq/L BUN 17 (7-18) mg/dL Creatinine 1.32 H (0.50-1.00) mg/dL Estimated GFR 40 L (>89) mL/min Random Glucose 105 (74-106) mg/dL Lactic Acid (0.4-2.0) mmol/L Calcium 7.9 L (8.5-10.1) mg/dL Total Bilirubin 0.3 (0.2-1.0) mg/dL AST 44 H (15-37) U/L ALT 35 (10-53) U/L Alkaline Phosphatase 132 H (45-117) U/L Total Creatine Kinase 66 (26-192) U/L Troponin I 0.03 (0.02-0.05) ng/mL B-Natriuretic Peptide (0-100) pg/mL Total Protein 7.8 (6.4-8.2) g/dL Albumin 2.4 L (3.4-5.0) g/dL 07/08/18 07/08/18 07/08/18 Range/Units 14:40 14:52 15:00 WBC (4.0-11.0) th/mm3 RBC (4.00-5.30) mil/mm3 Hgb (11.6-15.3) gm/dL Hct (35.0-46.0) % MCV (80.0-100.0) fL MCH (27.0-34.0) pg MCHC (32.0-36.0) % RDW (11.6-17.2) % Plt Count (150-450) th/mm3 MPV (7.0-11.0) fL Neut % (Auto) (16.0-70.0) % Lymph % (Auto) (9.0-44.0) % [place] % (Auto) (0.0-8.0) % Eos % (Auto) (0.0-4.0) % Baso % (Auto) (0.0-2.0) % Neut # (Auto) (1.8-7.7) th/mm3 Lymph # (Auto) (1.0-4.8) th/mm3 [place] # (Auto) (0.0-0.9) th/mm3 Eos # (Auto) (0.0-0.4) th/mm3 Baso # (Auto) (0.0-0.2) th/mm3 WBC Differential Differential Comment PT (9.8-11.6) sec INR Ratio APTT (24.3-30.1) sec Puncture Site Right radial Patient Temperature 98.6 O2 Saturation 87 L* (90-100) % ABG pH 7.24 L* (7.380-7.420) ABG pCO2 71 H* (38-42) mmHg ABG pO2 63 (61-120) mmHg ABG HCO3 29 H (22-26) mmol/L ABG O2 Content 14.4 (12.0-20.0) Vol % ABG Base Excess 2.3 H (-2-2) mmol/L ABG Methemoglobin 0.7 (0-2) % Curt Test Present Hemoglobin 11.8 L (12.0-16.0) G/DL Carboxyhemoglobin 1.1 (0-4) % O2 Delivery Device Nasal cannula Liter Flow 3.00 L/M Critical Value Yes Sodium (136-145) meq/L Potassium (3.5-5.1) meq/L Chloride (98-107) meq/L Carbon Dioxide (21.0-32.0) meq/L Anion Gap (5-15) meq/L BUN (7-18) mg/dL Creatinine (0.50-1.00) mg/dL Estimated GFR (>89) mL/min Random Glucose (74-106) mg/dL Lactic Acid 1.3 (0.4-2.0) mmol/L Calcium (8.5-10.1) mg/dL Total Bilirubin (0.2-1.0) mg/dL AST (15-37) U/L ALT (10-53) U/L Alkaline Phosphatase (45-117) U/L Total Creatine Kinase (26-192) U/L Troponin I (0.02-0.05) ng/mL B-Natriuretic Peptide 519 H (0-100) pg/mL Total Protein (6.4-8.2) g/dL Albumin (3.4-5.0) g/dL Imaging Data Radiologist's impression: Chest X-Ray 07/08/18 14:29 CONCLUSION: There is a new patchy infiltrate in the right upper lung suggestive of pneumonia. Discharge Plan Discharge Disposition Patient Disposition: 30 Still Patient Discharge Condition Condition: Fair Discharge Details Diagnosis: Acute hypercapnic respiratory failure, Pneumonia Physicians Team ED Provider: Morris Fair Primary Care Provider: Carlo Vang Rxs /Orders / Referrals /Forms Prescriptions: No Action atorvastatin 20 mg Tablet 20 mg PO DAILY RF: 0 metoprolol succinate 50 mg Tablet Extended Release 24 Hr 50 mg PO DAILY RF: 0 amlodipine 5 mg Tablet 5 mg PO DAILY RF: 0 allopurinol 100 mg Tablet 100 mg PO DAILY RF: 0 aspirin 81 mg Tablet,Delayed Release (Dr/Ec) 81 mg PO DAILY RF: 0 levothyroxine 112 mcg Tablet 112 mcg PO DAILY RF: 0 melatonin 3 mg Tablet 6 mg PO HS PRN (Reason: Insomnia) RF: 0 pantoprazole 40 mg Tablet,Delayed Release (Dr/Ec) 40 mg PO DAILY RF: 0 albuterol sulfate 2.5 mg /3 mL (0.083 %) Solution For Nebulization 2.5 mg NEB Q2HR NEB PRN (Reason: Shortness Of Breath) RF: 0 budesonide-formoterol [Symbicort] 160-4.5 mcg/actuation Hfa Aerosol Inhaler 2 puff INH BID RF: 0 Status ED Status: Pending Admission
[2018-07-08 15:08] LABS: ABG Base Excess 2.3 mmol/L (-2-2); ABG PCO2 71 mmHg (38-42); ABG PO2 63 mmHg (61-120)
[2018-07-08 15:18] LABS: Baso % (Auto) 0.3 % (0.0-2.0); Hemoglobin 11.3 gm/dL (11.6-15.3); Lymph # (Auto) 1.8 th/mm3 (1.0-4.8); Lymph % (Auto) 15.7 % (9.0-44.0); Mean Corpuscular HGB Conc 31.4 % (32.0-36.0); Mean Corpuscular Hemoglobin 26.9 pg (27.0-34.0); Mean Corpuscular Volume 85.7 fL (80.0-100.0); Mean Platelet Volume 7.4 fL (7.0-11.0); Mono # (Auto) 1.2 th/mm3 (0.0-0.9); Mono % (Auto) 10.7 % (0.0-8.0); Neut # (Auto) 8.5 th/mm3 (1.8-7.7); Neut % (Auto) 73.3 % (16.0-70.0); Platelet Count 252 th/mm3 (150-450); Red Cell Distribution Width 19.3 % (11.6-17.2); White Blood Count 11.6 th/mm3 (4.0-11.0)
[2018-07-08 15:29] LABS: Activated Partial Thrombo Time 27.1 sec (24.3-30.1); Prothrombin Time 10.2 sec (9.8-11.6)
[2018-07-08 15:34] LABS: Alanine Aminotransferase 35 U/L (10-53); Albumin 2.4 g/dL (3.4-5.0); Anion Gap 8 meq/L (5-15); Aspartate Aminotransferase 44 U/L (15-37); Blood Urea Nitrogen 17 mg/dL (7-18); Calcium 7.9 mg/dL (8.5-10.1); Carbon Dioxide 25.6 meq/L (21.0-32.0); Chloride 107 meq/L (98-107); Glomerular Filtration Rate 40 mL/min (>89); Glucose,Random 105 mg/dL (74-106); Potassium 4.6 meq/L (3.5-5.1); Sodium 141 meq/L (136-145)
[2018-07-08 15:39] LABS: Alkaline Phosphatase 132 U/L (45-117); Total Protein 7.8 g/dL (6.4-8.2); Troponin I 0.03 ng/mL (0.02-0.05)
--- NOTE | 2018-07-08 15:40 | XR ---
EXAM DATE: 07/08/2018 2:29 PM EDT AGE/SEX: 68 years / Female INDICATIONS: Short of breath. CLINICAL DATA: This is the patient's initial encounter. Patient reports that signs and symptoms have been present for 1 day and indicates a pain score of Nonresponsive. MEDICAL/SURGICAL HISTORY: Renal insufficiency, chronic. Stroke. Dementia. hypertension Cran iotomy. COMPARISON: [facility], CHEST 1V SINGLE AP, 05/22/2018. . FINDINGS: There is a new patchy infiltrate in the right upper lung. There is mild atelectasis in the left lung base. Otherwise the rest of the lungs are grossly clear. The heart size is mildly enlarged but stable . No definite pleural effusions. The bony structures are stable. CONCLUSION: There is a new patchy infiltrate in the right upper lung suggestive of pneumonia. Electronically signed by: Madhu Hayes MD 07/08/2018 3:39 PM EDT
[2018-07-08 15:42] LABS: Creatine Kinase 66 U/L (26-192)
[2018-07-08] MEDS ORDERED: Succinylcholine Inj 100 MG/5 ML Syringe IV.PUSH ONE (16:09)
[2018-07-08] MEDS ORDERED: Etomidate Inj 40 MG/20 ML Vial IV.PUSH ONE (16:09)
[2018-07-08] MEDS ORDERED: Sod Chloride 0.9% Inj 1,000 ML IV.CONT SCH (16:15)
[2018-07-08] MEDS: Propofol 1000 mg/100 ml Inj 1,000 MG/100 ML BOTTLE IV.CONT PRN (16:20)
--- NOTE | 2018-07-08 16:20 | P.HPCC ---
History of Present Illness Primary Care Physician: Carlo Vang MD Chief Complaint: Shortness of breath respiratory failure History of Present Illness: Patient is a 68-year-old female with past medical history significant for COPD on home oxygen, congestive heart failure, history of TIA/CVA, chronic kidney disease, hypothyroidism, dyslipidemia, history of tricuspid regurgitation , who presented to the emergency department with severe shortness of breath secondary to acute COPD exacerbation and pneumonia. Patient received back-to- back DuoNeb breathing treatments and IV Solu-Medrol and IV magnesium without improvement. Despite 1 hour of BiPAP patient remained tachypneic and lethargic with worsening encephalopathy. Chest x-ray showed right upper lobe pneumonia. I was contacted for admission I evaluated the patient in the ED. ER attending was getting ready to intubate the patient. On my evaluation patient remained on BiPAP significant bilateral wheezing and patient is tachypneic. She was unable to provide any history due to severe encephalopathy. Patient's initial ABG showed 7.24/71/63 on 3 L nasal cannula. I have ordered vent settings post intubation, also continue scheduled steroids, antibiotics and with IV cefepime antipseudomonal dose and azithromycin. Continue scheduled breathing treatments. - Diagnosis (1) Acute hypoxemic respiratory failure (2) COPD with exacerbation (3) Right upper lobe pneumonia (4) Acute hypercapnic respiratory failure Review of Systems unobtainable due to mental status PMFSH - History History Provided By: Patient - Medical History Medical History: Medical History (Last Reviewed 07/08/18 @ 16:23 by Vincent Corbin MD) Anatomical narrow angle Bandemia Bilateral cataracts CKD (chronic kidney disease) Dementia Gout History of stroke Hx of acute renal failure Hyperlipidemia Hypertension Hypothyroidism Leukocytosis Mitral regurgitation SOB (shortness of breath) Syncope TIA (transient ischemic attack) Tricuspid regurgitation Vitamin D deficiency - Surgical History Surgical History: Surgical History (Last Reviewed 07/08/18 @ 14:41 by Morris Fair) H/O craniotomy - Tobacco History Second Hand Smoke Exposure: No Smoking Status: Former smoker Tobacco Type: Cigarettes - Alcohol History How Often Do You Have a Drink Containing Alcohol: Unable to Obtain - Substance Use History Substance History: Unable to Obtain - Travel History Recent Travel in the [place] Within the Last 8 Weeks: No Recent Travel Out of the Country Within the Last 8 Weeks: No - Immunization History Tetanus Immunization: <5 Years Hx Influenza Vaccine This Season: Unable to Assess Medications and Allergies Active Medications: Active Medications Albuterol (Duoneb Neb (Prn)) 1 ampul NEB Q2HR NEB PRN PRN Reason: SHORTNESS OF BREATH Albuterol (Duoneb Neb (Prn)) 1 ampul NEB Q4HR NEB WILLY Albuterol (Albuterol Neb (Willy)) 2.5 mg NEB Q15M WILLY Stop: 07/08/18 16:46 Allopurinol (Zyloprim) 100 mg PO DAILY [facility] Aspirin (Ecotrin) 81 mg PO DAILY [facility] Atorvastatin Calcium (Lipitor) 20 mg PO DAILY [facility] Chlorhexidine Gluconate (Chlorhexidine 2% Cloth) 3 pack TOPICAL DAILY@0400 WILLY Stop: 07/14/18 03:59 Chlorhexidine Gluconate (Chlorhexidine 2% Cloth) 3 pack TOPICAL DAILY@0400 PRN PRN Reason: Extra cloth needed Stop: 07/14/18 03:59 Enoxaparin Sodium (Lovenox Inj) 40 mg SQ DAILY [facility] Famotidine (Pepcid Pf Inj) 20 mg IV.PUSH Q12HR [facility] Cefepime HCl 2,000 mg/ Sodium (Chloride) 100 mls @ 200 mls/hr IV.SIG Q12H [facility] Azithromycin 500 mg/ Sodium (Chloride) 250 mls @ 250 mls/hr IV.SIG Q24H [facility] Sodium Chloride (Ns Inj) 1,000 mls @ 1,000 mls/hr IV.CONT .Q1H [facility] Stop: 07/08/18 17:14 Propofol (Diprivan 1000 Mg/100 Ml Inj) 1,000 mg in 100 mls @ 1.905 mls/hr IV.CONT TITRATE PRN; Protocol PRN Reason: Per Protocol Levothyroxine Sodium (Synthroid) 112 mcg PO DAILY [facility] Methylprednisolone Sodium Succinate (Solumedrol Inj) 60 mg IV.PUSH Q8HR [facility] Metoprolol Succinate (Toprol Xl) 50 mg PO DAILY [facility] Pantoprazole Sodium (Protonix) 40 mg PO DAILY [facility] Allergies Allergy/AdvReac Type Severity Reaction Status Date / Time Iodinated Contrast- Oral and Allergy Unknown Verified 05/22/18 08:35 IV Dye [Contrast] Home Medications Medication Instructions Recorded Confirmed Type allopurinol 100 mg PO DAILY 05/21/18 07/08/18 History amlodipine 5 mg PO DAILY 05/21/18 07/08/18 History aspirin 81 mg PO DAILY 05/21/18 07/08/18 History atorvastatin 20 mg PO DAILY 05/21/18 07/08/18 History levothyroxine 112 mcg PO DAILY 05/21/18 07/08/18 History metoprolol succinate 50 mg PO DAILY 05/21/18 07/08/18 History melatonin 6 mg PO HS PRN 07/08/18 07/08/18 History pantoprazole 40 mg PO DAILY 07/08/18 07/08/18 History Results - Labs CBC & Chem 7: 07/08/18 14:40 07/08/18 14:40 Labs: Short CBC 07/08/18 Range/Units 14:40 WBC 11.6 H (4.0-11.0) th/mm3 Hgb 11.3 L (11.6-15.3) gm/dL Hct 36.0 (35.0-46.0) % Plt Count 252 (150-450) th/mm3 BMP 07/08/18 14:40 Sodium 141 Potassium 4.6 Chloride 107 Carbon Dioxide 25.6 BUN 17 Creatinine 1.32 H Calcium 7.9 L Cardiac Enzymes 07/08/18 Range/Units 14:40 Total Creatine Kinase 66 (26-192) U/L Troponin I 0.03 (0.02-0.05) ng/mL Liver Function 07/08/18 Range/Units 14:40 Total Bilirubin 0.3 (0.2-1.0) mg/dL AST 44 H (15-37) U/L ALT 35 (10-53) U/L Alkaline Phosphatase 132 H (45-117) U/L Albumin 2.4 L (3.4-5.0) g/dL - Imaging Impressions Chest X-Ray 07/08/18 14:29 CONCLUSION: There is a new patchy infiltrate in the right upper lung suggestive of pneumonia. Exam Vital signs: Vital Signs 07/08/18 14:32 07/08/18 15:31 07/08/18 15:52 Temperature 99.9 F H Pulse Rate 105 H 109 H Respiratory Rate 26 H 40 H Blood Pressure 163/71 H 155/62 H Pulse Oximetry 91 L 90 L 92 L Intake & Output 07/07/18 07/08/18 07/08/18 18:59 06:59 18:59 Intake Total 100 / 100 Balance 100 / 100 Weight 63.503 kg Intake: IV 100 / 100 Magnesium Sulfate 1 gm/D5W 100 100 / 100 ml Premix 100 ML @ 100 mls/hr IV.SIG ONCE ONE Rx#:[id number] Narrative: GENERAL: Elderly female in moderate to severe respiratory distress on BiPAP SKIN: Warm and dry. HEAD: Atraumatic. Normocephalic. EYES: Pupils equal and round. No scleral icterus. ENT: No nasal bleeding or discharge. BiPAP limits exam NECK: Trachea midline. No JVD. CARDIOVASCULAR: Tachycardic rate and sinus rhythm. no rubs or gallops RESPIRATORY: Lethargic on BiPAP using accessory muscles, breathing approximately 40 breaths/min. Severe bilateral expiratory wheezing with diminished air entry bilaterally GASTROINTESTINAL: Abdomen soft, non-tender, nondistended. No rebound or guarding MUSCULOSKELETAL: Extremities with 1+ edema NEUROLOGICAL: Patient is lethargic on BiPAP and respiratory distress. Do not follow commands Septic Shock Reassessment Septic shock perfusion: reassessment completed Caprini VTE Risk Assessment Caprini VTE Risk Assessment: Moderate/High Risk (score >= 2) Caprini Risk Assessment Model: Point Value = 1 Point Value = 2 Point Value = 3 Point Value = 5 Age 41-60 Minor surgery BMI > 25 kg/m2 Swollen legs Varicose veins or History of unexplained or recurrent spontaneous Oral contraceptives or hormone replacement Sepsis (< 1 month) Serious lung disease, including pneumonia (< 1 month) Abnormal pulmonary function Acute myocardial infarction Congestive heart failure (< 1 month) History of inflammatory bowel disease Medical patient at bed rest Age 61-74 Arthroscopic surgery Major open surgery (> 45 min) Laparoscopic surgery (> 45 min) Malignancy Confined to bed (> 72 hours) Immobilizing plaster cast Central venous access Age >= 75 History of VTE Family history of VTE Factor V Leiden Prothrombin [id number] Lupus anticoagulant Anticardiolipin antibodies Elevated serum homocysteine Heparin-induced thrombocytopenia Other congenital or acquired thrombophilia Stroke (< 1 month) Elective arthroplasty Hip, pelvis, or leg fracture Acute spinal cord injury (< 1 month) Prophylaxis Regimen: Total Risk Factor Score Risk Level Prophylaxis Regimen 0-1 Low Early ambulation 2 Moderate Order ONE of the following: *Sequential Compression Device (SCD) *Heparin 5000 units SQ BID 3-4 Higher Order ONE of the following medications: *Heparin 5000 units SQ TID *Enoxaparin/Lovenox 40 mg SQ daily (WT < 150 kg, CrCl > 30 mL/min) *Enoxaparin/Lovenox 30 mg SQ daily (WT < 150 kg, CrCl > 10-29 mL/min) *Enoxaparin/Lovenox 30 mg SQ BID (WT < 150 kg, CrCl > 30 mL/min) AND/OR *Sequential Compression Device (SCD) 5 or more Highest Order ONE of the following medications: *Heparin 5000 units SQ TID (Preferred with Epidurals) *Enoxaparin/Lovenox 40 mg SQ daily (WT < 150 kg, CrCl > 30 mL/min) *Enoxaparin/Lovenox 30 mg SQ daily (WT < 150 kg, CrCl > 10-29 mL/min) *Enoxaparin/Lovenox 30 mg SQ BID (WT < 150 kg, CrCl > 30 mL/min) AND *Sequential Compression Device (SCD) Assessment and Plan - Problem List (1) Acute hypoxemic respiratory failure Code(s): J96.01 - Acute respiratory failure with hypoxia Status: Acute (2) COPD with exacerbation Code(s): J44.1 - Chronic obstructive pulmonary disease with (acute) exacerbation Status: Acute (3) Right upper lobe pneumonia Code(s): J18.1 - Lobar pneumonia, unspecified organism Status: Acute (4) Acute hypercapnic respiratory failure Code(s): J96.02 - Acute respiratory failure with hypercapnia Status: Acute - Assessment and Plan Plan: NEURO: Toxic metabolic encephalopathy History of previous TIA -Propofol and fentanyl for sedation and ventilator synchrony -Start daily sedation vacation when clinically stable RESP: Acute hypoxemic and hypercarbic respiratory failure Acute COPD exacerbation Right upper lobe pneumonia Chronic hypoxemic respiratory failure on home oxygen -PRVC/AC -Ventilator bundle -DuoNeb every 4 hours scheduled and every 2 hours as needed -ID section for antibiotics -IV Solu-Medrol 60 mg every 8 hours CV: Hypertension -Normal saline IV fluids 1L bolus, check 2 D Echo -Hold amlodipine, continue aspirin atorvastatin and metoprolol GI: -N.p.o., p.o. Protonix : Chronic kidney disease -Monitor renal function closely. Place Rios catheter if needed -IV hydration with normal saline at 84 mL/h ID: Severe sepsis Right upper lobe pneumonia -Antibiotics with cefepime and azithromycin and single dose of vancomycin -Blood urine and sputum cultures HEME: -Monitor CBC, coags ENDO: -Electrolyte replacement per protocol -Sliding scale insulin if needed PROPH: -Bilateral lower extremity SCDs. Lovenox/protonix LINES: -Utilize peripheral IVs, central line if needed CC time 35 min Code Status: Full Discussed Condition With: Dr. Fair
--- NOTE | 2018-07-08 16:57 | XR ---
EXAM DATE: 07/08/2018 4:34 PM EDT AGE/SEX: 68 years / Female INDICATIONS: ET tube placement. CLINICAL DATA: This is the patient's initial encounter. Patient reports that signs and symptoms have been present for 1 day and indicates a pain score of 0/10. MEDICAL/SURGICAL HISTORY: Renal insufficiency, chronic. Stroke. Dementia. Craniotomy. COMPARISON: [facility] [place] 1V SINGLE AP, 07/08/2018. . FINDINGS: ETT is approximately 2 cm above the maurice. NGT with tip not well demonstrated beyond the GE junction . Patchy airspace disease in the right mid lung zone. Minimal airspace disease at the left lower lung zone. Cardiomegaly mediastinal contours are within normal limits. Remainder of exam is unchanged. CONCLUSION: 1. ETT in good position. NGT obscured beyond the GE junction. 2. Persistent patchy airspace disease in the right midlung zone concerning for pneumonia or aspirati on in the appropriate clinical setting. 3. Minimal left lung base airspace disease, presumably atelectasis. Electronically signed by: Carrington Hines MD 07/08/2018 4:55 PM EDT
[2018-07-08] MEDS ORDERED: fentaNYL 10 mcg/mL Premix Drip 2,500 MCG/250 ML BAG IV.SIG PRN (17:03)
[2018-07-08] MEDS ORDERED: Potassium Phosphate 500 MG Soluble Tablet PO PRN ×2 (17:12)
[2018-07-08] MEDS ORDERED: Potassium Chlor 40 mEq Premix 40 MEQ/100 ML PIGGYBACK IV.SIG PRN ×2 (17:12)
[2018-07-08] MEDS ORDERED: Magnesium Oxide 400 MG Tablet PO PRN (17:12)
[2018-07-08] MEDS ORDERED: Potassium Chlor 20 mEq Premix 20 MEQ/100 ML PIGGYBACK IV.SIG PRN ×2 (17:12)
[2018-07-08] MEDS ORDERED: Magnesium Sulfate Inj 2 GM in Sodium Chlor 0.9% Inj 96 ML IV.SIG PRN (17:12)
[2018-07-08] MEDS ORDERED: Potassium Chloride 25 MEQ Effervescent Tablet PO PRN (17:12)
[2018-07-08] MEDS ORDERED: Magnesium Sulfate Inj 4 GM in Sodium Chlor 0.9% Inj 92 ML IV.SIG PRN (17:12)
[2018-07-08] MEDS ORDERED: Potassium Phosphate Inj 30 MMOL in Sodium Chlor 0.9% Inj 250 ML IV.SIG PRN (17:12)
[2018-07-08] MEDS ORDERED: Sodium Phosphate Inj 30 MMOL in Sodium Chlor 0.9% Inj 250 ML IV.SIG PRN (17:12)
[2018-07-08 17:14] LABS: Amorphous Sediment,Urine Few /hpf; Bacteria,Urine Few /hpf; Bilirubin,Urine Negative (Negative); Clarity,Urine Cloudy (Clear); Color,Urine Yellow (Yellw/Straw); Glucose,Urine (UA) 50 mg/dL (Negative); Hyaline Casts,Urine 7 /lpf (0-3); Leukocyte Esterase,Urine Negative (Negative); Mucus,Urine Few /lpf (Occasional); Nitrite,Urine Negative (Negative); Squamous Epithelial Cell,Urine 1 /hpf (0-5)
[2018-07-08] MEDS: Azithromycin Inj 500 MG in Sodium Chlor 0.9% Inj 250 ML IV.SIG SCH (17:34)
[2018-07-08 18:30] LABS: ABG Base Excess -0.4 mmol/L (-2-2); ABG PCO2 45 mmHg (38-42); ABG PO2 88 mmHG (61-120)
[2018-07-08] MEDS ORDERED: Sodium Chlor 0.9% Inj 250 ML IV.SIG SCH (20:00)
[2018-07-08] MEDS: Famotidine PF Inj 20 MG/2 ML Vial IV.PUSH SCH (20:37)
--- NOTE | 2018-07-08 22:14 | XR ---
EXAM DATE: 07/08/2018 9:40 PM EDT AGE/SEX: 68 years / Female INDICATIONS: Evaluate ET tube placement. CLINICAL DATA: This is the patient's subsequent encounter. Patient reports that signs and symptoms h ave been present for 1 day and indicates a pain score of Nonresponsive. MEDICAL/SURGICAL HISTORY: . Renal insufficiency, chronic. Stroke. Dementia. . Craniotomy. [place] [facility] [place]. . FINDINGS: Endotracheal tube tip is 2.5 cm above the maurice, similar to prior. Gastric tube tip is just beyond t he GE junction and the side-port project within the lower chest. Persistent opacity in the right jose eduardo hilar midlung and indistinctness of the central bronchopulmonary markings on the left side. Both yassine diaphragms remain well delineated. CONCLUSION: 1. ET tube stable in position, above the maurice. 2. Gastric tube tip just crosses the GE junction and needs to be advanced. 3. Persistent partially consolidative right midlung infiltrates. Electronically signed by: Rudi Garcia MD 07/08/2018 10:13 PM EDT
--- NOTE | 2018-07-08 22:24 | ECG ---
Date Performed: 07/08/2018 Time Performed: 20:11:54 PTAGE: 68 years EKG: Sinus rhythm . Inferior infarct - age undetermined Possible anteroseptal infarct - age undetermined Abnormal ECG PREVIOUS TRACING : 07/08/2018 16.47 Compared to previous tracing, inferior and anteroseptal Q waves present DOCTOR: Hoda Coto Interpretating Date/Time 07/08/2018 22:22:36
--- NOTE | 2018-07-08 22:34 | ECG ---
Date Performed: 07/08/2018 Time Performed: 16:47:44 PTAGE: 68 years EKG: ELECTRONIC ATRIAL PACEMAKER MINIMAL VOLTAGE CRITERIA FOR LVH, CONSIDER NORMAL VARIANT ABNOR MAL RHYTHM ECG PREVIOUS TRACING : 05/22/2018 08.30 Compared to previous tracing, Sinus rhythm and anteroseptal and inferior Q waves no longer present DOCTOR: Hoda Coto Interpretating Date/Time 07/08/2018 22:33:32
[2018-07-08] MEDS ORDERED: Aspirin 300 MG Supp RECTAL ONE (22:56)
[2018-07-08] MEDS: MethylPREDNISolone Sod Succinate Inj 125 MG/2 ML Vial IV.PUSH SCH (23:02)
[2018-07-09] MEDS ORDERED: Chlorhexidine Gluconate 2% 1 Pack (2 Cloths) TOPICAL PRN (04:00)
[2018-07-09] MEDS: Chlorhexidine Gluconate 2% 1 Pack (2 Cloths) TOPICAL SCH (04:26)
[2018-07-09 04:50] LABS: Albumin 2.1 g/dL (3.4-5.0); Anion Gap 10 meq/L (5-15); Aspartate Aminotransferase 27 U/L (15-37); Blood Urea Nitrogen 27 mg/dL (7-18); Calcium 8.6 mg/dL (8.5-10.1); Carbon Dioxide 23.8 meq/L (21.0-32.0); Chloride 106 meq/L (98-107); Glomerular Filtration Rate 31 mL/min (>89); Glucose,Random 160 mg/dL (74-106); Potassium 4.5 meq/L (3.5-5.1); Sodium 140 meq/L (136-145)
[2018-07-09 04:56] LABS: Alanine Aminotransferase 31 U/L (10-53); Alkaline Phosphatase 113 U/L (45-117); Total Protein 7.3 g/dL (6.4-8.2)
[2018-07-09] MEDS: Propofol 1000 mg/100 ml Inj 1,000 MG/100 ML BOTTLE IV.CONT PRN (05:03)
[2018-07-09] MEDS: Levothyroxine 112 MCG Tablet PO SCH (05:14)
[2018-07-09] MEDS: MethylPREDNISolone Sod Succinate Inj 125 MG/2 ML Vial IV.PUSH SCH ×3 (05:14→21:14)
[2018-07-09] MEDS: Enoxaparin Inj 40 MG/0.4 ML Syringe SQ SCH (08:07)
[2018-07-09] MEDS: Famotidine PF Inj 20 MG/2 ML Vial IV.PUSH SCH ×2 (08:07→21:15)
[2018-07-09] MEDS: Allopurinol 100 MG Tablet PO SCH (08:07)
--- NOTE | 2018-07-09 09:10 | P.PNCC ---
Subjective Subjective Remarks/Hospital Course: Patient is a 68-year-old female with past medical history significant for COPD on home oxygen, congestive heart failure, history of TIA/CVA, chronic kidney disease, hypothyroidism, dyslipidemia, history of tricuspid regurgitation , who presented to the emergency department with severe shortness of breath secondary to acute COPD exacerbation and pneumonia. Patient received back-to- back DuoNeb breathing treatments and IV Solu-Medrol and IV magnesium without improvement. Despite 1 hour of BiPAP patient remained tachypneic and lethargic with worsening encephalopathy. Chest x-ray showed right upper lobe pneumonia. I was contacted for admission I evaluated the patient in the ED. ER attending was getting ready to intubate the patient. On my evaluation patient remained on BiPAP significant bilateral wheezing and patient is tachypneic. She was unable to provide any history due to severe encephalopathy. Patient's initial ABG showed 7.24/71/63 on 3 L nasal cannula. I have ordered vent settings post intubation, also continue scheduled steroids, antibiotics and with IV cefepime antipseudomonal dose and azithromycin. Continue scheduled breathing treatments. SUBJ 07/09: Remains intubated sedated with propofol and fentanyl. Heart rate and blood pressure adequately controlled. Bilateral wheezing appears to have improved on clinical exam. No chest x-ray today. Objective Vital Signs / I&O: Vital Signs 07/08/18 14:32 07/08/18 15:31 07/08/18 15:40 Temperature 99.9 F H Pulse Rate 105 H 109 H 102 H Respiratory Rate 26 H 40 H 38 H Blood Pressure 163/71 H 155/62 H Pulse Oximetry 91 L 90 L 91 L 07/08/18 15:52 07/08/18 16:31 07/08/18 16:32 Temperature Pulse Rate 96 H Respiratory Rate 20 Blood Pressure 128/58 L Pulse Oximetry 92 L 96 96 07/08/18 16:51 07/08/18 17:00 07/08/18 17:16 Temperature 99.1 F Pulse Rate 93 H 88 Respiratory Rate 16 18 Blood Pressure 118/57 L 106/68 Pulse Oximetry 98 07/08/18 17:19 07/08/18 17:20 07/08/18 17:58 Temperature Pulse Rate 88 Respiratory Rate 17 16 16 Blood Pressure Pulse Oximetry 95 98 07/08/18 18:00 07/08/18 19:00 07/08/18 19:25 Temperature Pulse Rate 87 80 Respiratory Rate 16 16 16 Blood Pressure 109/56 L 82/52 L Pulse Oximetry 98 97 07/08/18 19:44 07/08/18 19:53 07/08/18 20:00 Temperature 98.2 F Pulse Rate 76 75 Respiratory Rate 16 16 16 Blood Pressure 124/66 Pulse Oximetry 98 99 07/08/18 21:00 07/08/18 22:00 07/08/18 23:00 Temperature Pulse Rate 80 87 80 Respiratory Rate 16 17 16 Blood Pressure 151/70 H 156/74 H 120/58 L Pulse Oximetry 100 99 98 07/08/18 23:44 07/08/18 23:46 07/09/18 00:00 Temperature 98.6 F Pulse Rate 82 81 Respiratory Rate 16 16 16 Blood Pressure 151/72 H Pulse Oximetry 99 99 07/09/18 01:00 07/09/18 02:00 07/09/18 03:00 Temperature Pulse Rate 80 77 72 Respiratory Rate 16 16 16 Blood Pressure 146/68 H 118/57 L 149/69 H Pulse Oximetry 95 97 98 07/09/18 03:33 07/09/18 03:38 07/09/18 04:00 Temperature 98.7 F Pulse Rate 74 73 Respiratory Rate 17 21 16 Blood Pressure 120/58 L Pulse Oximetry 100 96 07/09/18 05:00 07/09/18 06:00 07/09/18 07:38 Temperature Pulse Rate 90 69 61 Respiratory Rate 17 16 16 Blood Pressure 124/58 L 104/53 L Pulse Oximetry 94 L 97 99 Intake & Output 07/08/18 07/09/18 07/09/18 18:59 06:59 18:59 Intake Total 1450 / 1450 1200 / 1200 Output Total 375 / 375 Balance 1450 / 1450 1200 / 1200 -375 / -375 Weight 63.503 kg 78.5 kg Intake: IV 1450 / 1450 1200 / 1200 NS + KCl 20 mEq Inj 1,000 ML @ 1000 / 1000 84 mls/hr IV.CONT .[id number] [facility] Rx#:[id number] Diprivan 1000 mg/100 ml Inj 1, 100 / 100 000 mg In 100 ml @ 5 MCG/KG/MIN 1.905 mls/hr IV.CONT TITRATE PRN Rx#:[id number] NS Inj 1,000 ML @ 1000 mls/hr 1000 / 1000 IV.CONT .Q1H [facility] Rx#:[id number] Azithromycin Inj 500 MG In NS 250 / 250 Inj 250 ML @ 250 mls/hr IV.SIG Q24H [facility] Rx#:[id number] Maxipime Inj 2,000 MG In NS Inj 100 / 100 100 / 100 100 ML @ 200 mls/hr IV.SIG Q12H [facility] Rx#:[id number] Magnesium Sulfate 1 gm/D5W 100 100 / 100 ml Premix 100 ML @ 100 mls/hr IV.SIG ONCE ONE Rx#:[id number] Output: Urine Amount (Catheter) 375 / 375 Indwelling Urethral Catheter 375 / 375 Other: # Bowel Movements 0 Weight On Admission 78.5 kg Result Diagrams: 07/08/18 14:40 07/09/18 02:45 Objective Remarks: GENERAL: Elderly female intubated, sedated SKIN: Warm and dry. HEAD: Atraumatic. Normocephalic. EYES: Pupils equal and round. No scleral icterus. ENT: No nasal bleeding or discharge. Orotracheally intubated NECK: Trachea midline. No JVD. CARDIOVASCULAR: Normal rate and sinus rhythm. no rubs or gallops RESPIRATORY: Air entry equal bilaterally with bilateral wheezing but improved compared to yesterday. Few basilar crackles heard. GASTROINTESTINAL: Abdomen soft, non-tender, nondistended. No rebound or guarding MUSCULOSKELETAL: Extremities with 1+ edema NEUROLOGICAL: Intubated sedated with propofol and fentanyl. On sedation hold patient follows commands x4. No focal deficits Assessment and Plan - Problem List (1) Acute hypoxemic respiratory failure Code(s): J96.01 - Acute respiratory failure with hypoxia Status: Acute (2) COPD with exacerbation Code(s): J44.1 - Chronic obstructive pulmonary disease with (acute) exacerbation Status: Acute (3) Right upper lobe pneumonia Code(s): J18.1 - Lobar pneumonia, unspecified organism Status: Acute (4) Acute hypercapnic respiratory failure Code(s): J96.02 - Acute respiratory failure with hypercapnia Status: Acute - Assessment and Plan Plan: NEURO: Toxic metabolic encephalopathy History of previous TIA -Propofol and fentanyl for sedation and ventilator synchrony -Start daily sedation vacation RESP: Acute hypoxemic and hypercarbic respiratory failure Acute COPD exacerbation Right lung pneumonia Chronic hypoxemic respiratory failure on home oxygen -PRVC/AC, Ventilator bundle -DuoNeb every 4 hours scheduled and every 2 hours as needed -See ID section for antibiotics -IV Solu-Medrol 60 mg every 8 hours -Start CPAP trials CV: Hypertension History of congestive heart failure -Normal saline IV fluids 1L bolus, continue maintenance IV fluids, check 2 D Echo -Hold amlodipine, continue aspirin atorvastatin and metoprolol GI: -N.p.o., p.o. Protonix -Start tube feeds with Jevity if patient is not extubated : Acute on chronic kidney disease -Monitor renal function closely. Place Rios catheter if needed -IV hydration with normal saline at 84 mL/h ID: Severe sepsis Right lung pneumonia -Antibiotics with cefepime and azithromycin and single dose of vancomycin -F/u Blood urine and sputum cultures HEME: -Monitor CBC, coags ENDO: -Electrolyte replacement per protocol -Sliding scale insulin if needed PROPH: -Bilateral lower extremity SCDs. Lovenox/famotidine LINES: -Utilize peripheral IVs, central line if needed CC time 35 min Patient remains critically ill with sepsis, pneumonia, COPD exacerbation. Continue supportive care with ventilator support antibiotics and hydration. Monitor renal function closely as creatinine has worsened. Code Status: Full
--- NOTE | 2018-07-09 09:36 | XR ---
EXAM DATE: 07/09/2018 8:01 AM EDT AGE/SEX: 68 years / Female INDICATIONS: Status post oral gastric tube placement. CLINICAL DATA: This is the patient's initial encounter. Patient reports that signs and symptoms have been present for 2 days and indicates a pain score of Nonresponsive. MEDICAL/SURGICAL HISTORY: Non-responsive. Non-responsive. COMPARISON: [facility], CHEST 1V SINGLE AP, 07/08/2018. . FINDINGS: Stable ETT. NGT is just beyond the GE junction. Persistent patchy airspace disease in the right mid t o lower lung zone. Cardiomediastinal contours are stable. Remainder of exam is unchanged. CONCLUSION: 1. NGT just beyond the GE junction. 2. Stable patchy airspace disease in the right mid to lower lung zone. Electronically signed by: Carrington Hines MD 07/09/2018 9:35 AM EDT
[2018-07-09 13:19] LABS: ABG Base Excess -1.7 mmol/L (-2-2); ABG PCO2 49 mmHg (38-42); ABG PO2 91 mmHG (61-120)
--- NOTE | 2018-07-09 14:17 | ECHRPT ---
Indication: short of breath CONCLUSIONS Normal left ventricular size. Wall thickness is upper normal. The left ventricular systolic function is hyperdynamic with an estimated ejection fraction in the ra nge of 65- 70%. No regional wall motion abnormalities are present. Mild thickening of the aortic valve leaflets. There is trace tricuspid valve regurgitation. The estimated pulmonary arterial pressure is 21 mmHg. BP: / HR: Rhythm: MEASUREMENTS (Male / Female) Normal Values Technical Quality: 2D ECHO LV Diastolic Diameter PLAX 4.6 cm 4.2 - 5.9 / 3.9 - 5.3 cm LV Systolic Diameter PLAX 2.8 cm IVS Diastolic Thickness 1.1 cm 0.6 - 1.0 / 0.6 - 0.9 cm LVPW Diastolic Thickness 1.0 cm 0.6 - 1.0 / 0.6 - 0.9 cm LV Relative Wall Thickness 0.5 RV Internal Dim ED PLAX 3.0 cm LVOT Diameter 1.9 cm Aortic Root Diameter 3.2 cm LA Systolic Diameter LX 4.4 cm 3.0 - 4.0 / 2.7 - 3.8 cm LV Ejection Fraction MOD 4C 47.1 % LV Ejection Fraction 4C AL 51.1 % M-MODE Aortic Root Diameter MM 3.3 cm LA Systolic Diameter MM 4.6 cm LA Ao Ratio MM 1.4 AV Cusp Separation MM 1.9 cm DOPPLER AV Peak Velocity 140.0 cm/s AV Peak Gradient 7.8 mmHg LVOT Peak Velocity 85.5 cm/s LVOT Peak Gradient 2.9 mmHg AV Area Cont Eq pk 1.7 cm Mitral E Point Velocity 77.0 cm/s Mitral A Point Velocity 118.0 cm/s Mitral E to A Ratio 0.7 LV E' Lateral Velocity 6.5 cm/s Mitral E to LV E' Lateral Ratio 11.8 LV E' Septal Velocity 5.9 cm/s Mitral E to LV E' Septal Ratio 12.9 TV Peak Velocity 138.0 cm/s TR Peak Velocity 166.0 cm/s TR Peak Gradient 11.0 mmHg Right Atrial Pressure 10.0 mmHg Pulmonary Artery Systolic Pressu 21.0 mmHg Right Ventricular Systolic Press 21.0 mmHg PV Peak Velocity 106.0 cm/s PV Peak Gradient 4.5 mmHg FINDINGS LEFT VENTRICLE Normal left ventricular size. Wall thickness is upper normal. The left ventricular systolic function is hyperdynamic with an estimated ejection fraction in the ra nge of 65- 70%. No regional wall motion abnormalities are present. RIGHT VENTRICLE The right ventriclar size is upper limits of normal. LEFT ATRIUM The left atrial size is upper limits of normal. RIGHT ATRIUM The right atrial size is normal. ATRIAL SEPTUM Normal atrial septal thickness without atrial level shunting by limited color doppler interrogation. AORTA The aortic root and proximal ascending aorta are normal in size on limited imaging. MITRAL VALVE Structurally normal mitral valve. No mitral valve stenosis or regurgitation. AORTIC VALVE Mild thickening of the aortic valve leaflets. TRICUSPID VALVE There is trace tricuspid valve regurgitation. The estimated pulmonary arterial pressure is 21 mmHg. PULMONARY VALVE No pulmonary valve regurgitation or stenosis. VESSELS The inferior vena cava is dilated. PERICARDIUM No pericardial effusion. Otilio Mcbride MD (Electronically Signed) Final Date:09 July 2018 14:16
[2018-07-09] MEDS: Azithromycin Inj 500 MG in Sodium Chlor 0.9% Inj 250 ML IV.SIG SCH (17:00)
[2018-07-10] MEDS: Chlorhexidine Gluconate 2% 1 Pack (2 Cloths) TOPICAL SCH (03:26)
[2018-07-10 04:53] LABS: Hematocrit 32.3 % (35.0-46.0); Hemoglobin 10.1 gm/dL (11.6-15.3); Mean Corpuscular HGB Conc 31.3 % (32.0-36.0); Mean Corpuscular Hemoglobin 27.2 pg (27.0-34.0); Mean Corpuscular Volume 86.9 fL (80.0-100.0); Mean Platelet Volume 7.6 fL (7.0-11.0); Platelet Count 225 th/mm3 (150-450); Red Blood Count 3.72 mil/mm3 (4.00-5.30); Red Cell Distribution Width 18.8 % (11.6-17.2); White Blood Count 12.7 th/mm3 (4.0-11.0)
--- NOTE | 2018-07-10 04:55 | XR ---
EXAM DATE: 07/10/2018 6:00 AM EDT AGE/SEX: 68 years / Female INDICATIONS: Shortness of breath, possible pulmonary disease. CLINICAL DATA: This is the patient's subsequent encounter. Patient reports that signs and symptoms h ave been present for 3 days and indicates a pain score of Nonresponsive. MEDICAL/SURGICAL HISTORY: Renal insufficiency. Stroke. Hypertension. Craniotomy. COMPARISON: [facility] [place], CHEST 1V SINGLE AP, 07/09/2018. . FINDINGS: Single AP view the chest. Endotracheal tube and nasogastric tube no longer seen. Patchy right midlung zone opacity unchanged. Cardiomediastinal silhouette unchanged. No evidence of pleural effusion or p neumothorax. CONCLUSION: Endotracheal tube and nasogastric tube no longer seen. Patchy right midlung zone opacity unchanged. Electronically signed by: Aleksandar Stewart MD 07/10/2018 4:54 AM EDT
[2018-07-10 05:15] LABS: Alanine Aminotransferase 26 U/L (10-53); Albumin 2.2 g/dL (3.4-5.0); Anion Gap 6 meq/L (5-15); Aspartate Aminotransferase 22 U/L (15-37); Blood Urea Nitrogen 29 mg/dL (7-18); Calcium 8.6 mg/dL (8.5-10.1); Chloride 112 meq/L (98-107); Glomerular Filtration Rate 46 mL/min (>89); Glucose,Random 109 mg/dL (74-106); Magnesium 2.7 mg/dL (1.5-2.5); Potassium 4.6 meq/L (3.5-5.1); Sodium 146 meq/L (136-145)
[2018-07-10 05:17] LABS: Alkaline Phosphatase 103 U/L (45-117); Total Protein 7.2 g/dL (6.4-8.2)
[2018-07-10] MEDS: MethylPREDNISolone Sod Succinate Inj 125 MG/2 ML Vial IV.PUSH SCH ×2 (05:45→15:04)
[2018-07-10] MEDS: Levothyroxine 112 MCG Tablet PO SCH (05:46)
--- NOTE | 2018-07-10 08:00 | P.PNCC ---
Subjective Subjective Remarks/Hospital Course: Patient is a 68-year-old female with past medical history significant for COPD on home oxygen, congestive heart failure, history of TIA/CVA, chronic kidney disease, hypothyroidism, dyslipidemia, history of tricuspid regurgitation , who presented to the emergency department with severe shortness of breath secondary to acute COPD exacerbation and pneumonia. Patient received back-to- back DuoNeb breathing treatments and IV Solu-Medrol and IV magnesium without improvement. Despite 1 hour of BiPAP patient remained tachypneic and lethargic with worsening encephalopathy. Chest x-ray showed right upper lobe pneumonia. I was contacted for admission I evaluated the patient in the ED. ER attending was getting ready to intubate the patient. On my evaluation patient remained on BiPAP significant bilateral wheezing and patient is tachypneic. She was unable to provide any history due to severe encephalopathy. Patient's initial ABG showed 7.24/71/63 on 3 L nasal cannula. I have ordered vent settings post intubation, also continue scheduled steroids, antibiotics and with IV cefepime antipseudomonal dose and azithromycin. Continue scheduled breathing treatments. SUBJ 07/09: Remains intubated sedated with propofol and fentanyl. Heart rate and blood pressure adequately controlled. Bilateral wheezing appears to have improved on clinical exam. No chest x-ray today. 07/10: Extubated yesterday tolerating well breathing comfortably. Clinically wheezing has improved. Chest x-ray shows persistent midlung infiltrate. Due to smoking history and age I would get a CT of the chest to rule out lung mass Objective Vital Signs / I&O: Vital Signs 07/09/18 08:00 07/09/18 09:00 07/09/18 10:00 Temperature 97.8 F Pulse Rate 69 66 68 Respiratory Rate 16 16 Blood Pressure 137/65 130/62 Pulse Oximetry 97 98 07/09/18 11:52 07/09/18 11:54 07/09/18 12:00 Temperature 97.7 F Pulse Rate 92 H 86 Respiratory Rate 22 22 22 Blood Pressure 147/94 H Pulse Oximetry 97 99 07/09/18 13:54 07/09/18 14:00 07/09/18 15:00 Temperature Pulse Rate 85 86 Respiratory Rate 21 Blood Pressure Pulse Oximetry 96 07/09/18 16:00 07/09/18 18:00 07/09/18 20:00 Temperature 97.8 F 98.0 F Pulse Rate 96 H 97 H 90 Respiratory Rate 24 27 H Blood Pressure 138/66 139/63 Pulse Oximetry 90 L 94 L 07/09/18 20:08 07/09/18 20:09 07/09/18 22:00 Temperature Pulse Rate 96 H 81 Respiratory Rate 22 Blood Pressure Pulse Oximetry 94 L 07/09/18 23:16 07/09/18 23:17 07/10/18 00:00 Temperature 98.4 F Pulse Rate 90 87 Respiratory Rate 20 22 Blood Pressure 121/58 L Pulse Oximetry 95 100 07/10/18 02:00 07/10/18 03:22 07/10/18 03:23 Temperature Pulse Rate 76 91 H Respiratory Rate 21 Blood Pressure Pulse Oximetry 98 07/10/18 04:00 07/10/18 06:00 07/10/18 07:21 Temperature 98.2 F Pulse Rate 80 88 101 H Respiratory Rate 26 H 28 H Blood Pressure 140/60 Pulse Oximetry 100 98 Intake & Output 07/09/18 07/10/18 07/10/18 18:59 06:59 18:59 Intake Total 1715 / 1715 460 / 460 Output Total 925 / 925 550 / 550 Balance 790 / 790 -90 / -90 Weight 78.5 kg 79 kg Intake: IV 1715 / 1715 100 / 100 NS + KCl 20 mEq Inj 1,000 ML @ 1000 / 1000 84 mls/hr IV.CONT .[id number] [facility] Rx#:[id number] Diprivan 1000 mg/100 ml Inj 1, 65 / 65 000 mg In 100 ml @ 5 MCG/KG/MIN 1.905 mls/hr IV.CONT TITRATE PRN Rx#:[id number] Azithromycin Inj 500 MG In NS 250 / 250 Inj 250 ML @ 250 mls/hr IV.SIG Q24H [facility] Rx#:[id number] Maxipime Inj 2,000 MG In NS Inj 100 / 100 100 / 100 100 ML @ 200 mls/hr IV.SIG Q12H [facility] Rx#:[id number] NS Inj 250 ML @ Wide Open IV. 250 / 250 SIG BOLUS [facility] Rx#:[id number] fentaNYL 10 mcg/mL Premix Drip 50 / 50 2,500 mcg In 250 ml @ 50 MCG/HR 5 mls/hr IV.SIG TITRATE PRN Rx #:[id number] Oral 360 / 360 Output: Urine 550 / 550 Urine Amount (Catheter) 925 / 925 Indwelling Urethral Catheter 925 / 925 Other: # Bowel Movements 0 0 Weight On Admission 78.5 kg Result Diagrams: 07/10/18 02:43 07/10/18 02:43 Objective Remarks: GENERAL: Elderly female lying in bed no distress SKIN: Warm and dry. HEAD: Atraumatic. Normocephalic. EYES: Pupils equal and round. No scleral icterus. ENT: No nasal bleeding or discharge. NECK: Trachea midline. No JVD. CARDIOVASCULAR: Normal rate and sinus rhythm. no rubs or gallops RESPIRATORY: Air entry equal bilaterally with improved bilateral wheezing GASTROINTESTINAL: Abdomen soft, non-tender, nondistended. No rebound or guarding MUSCULOSKELETAL: Extremities with 1+ edema NEUROLOGICAL: Alert awake oriented conversant. Follows commands no focal deficits muscle strength grossly normal Assessment and Plan - Problem List (1) Acute hypoxemic respiratory failure Code(s): J96.01 - Acute respiratory failure with hypoxia Status: Acute (2) COPD with exacerbation Code(s): J44.1 - Chronic obstructive pulmonary disease with (acute) exacerbation Status: Acute (3) Right upper lobe pneumonia Code(s): J18.1 - Lobar pneumonia, unspecified organism Status: Acute (4) Acute hypercapnic respiratory failure Code(s): J96.02 - Acute respiratory failure with hypercapnia Status: Acute - Assessment and Plan Plan: NEURO: Toxic metabolic encephalopathy History of previous TIA -Discontinue all sedation -Monitor neuro status closely RESP: Acute hypoxemic and hypercarbic respiratory failure-resolved Acute COPD exacerbation-improving Right lung pneumonia COPD -Extubated yesterday tolerating well -DuoNeb every 4 hours scheduled -will be changed to every 6 hours and every 2 hours as needed -See ID section for antibiotics -IV Solu-Medrol 60 mg every 8 hours -Resume home medication budesonide/formoterol scheduled inhaler -CT chest to rule out lung mass ordered CV: Hypertension History of congestive heart failure -Discontinue IV fluids -Resume amlodipine, continue aspirin atorvastatin and metoprolol GI: -Heart healthy diet -Famotidine for GI prophylaxis : Acute on chronic kidney disease -Monitor renal function closely. Creatinine improving steadily ID: Severe sepsis-improving Right lung pneumonia -Antibiotics with cefepime and azithromycin and also received single dose of vancomycin in the ED -F/u Blood urine and sputum cultures-negative to date HEME: -Monitor CBC, coags ENDO: -Electrolyte replacement per protocol -Sliding scale insulin if needed PROPH: -Bilateral lower extremity SCDs. Lovenox/famotidine LINES: -Utilize peripheral IVs, central line if needed Level Consult hospitalist to assume care in a.m., transfer to intermediate care unit Code Status: Full
[2018-07-10] MEDS: Famotidine PF Inj 20 MG/2 ML Vial IV.PUSH SCH ×2 (09:21→20:49)
[2018-07-10] MEDS: Allopurinol 100 MG Tablet PO SCH (09:21)
[2018-07-10] MEDS: amLODIPine 5 MG Tablet PO SCH (09:22)
[2018-07-10] MEDS: Budesonide-Formoterol 160/4.5 MCG 6 GM Inhaler INH SCH ×2 (09:22→20:50)
[2018-07-10] MEDS: Enoxaparin Inj 40 MG/0.4 ML Syringe SQ SCH (09:22)
--- NOTE | 2018-07-10 16:26 | P.CONFP ---
History of Present Illness Service: family medicine Consult date: 07/10/18 Primary Care Provider: Carlo Vang MD Chief Complaint: Shortness of breath respiratory failure Review of Systems Constitutional: Reports weakness PMFSH - History History Provided By: Patient - Medical History Medical History: Medical History (Last Reviewed 07/10/18 @ 09:12 by Chema Monique) Anatomical narrow angle Bandemia Bilateral cataracts CKD (chronic kidney disease) Dementia Gout History of stroke Hx of acute renal failure Hyperlipidemia Hypertension Hypothyroidism Leukocytosis Mitral regurgitation SOB (shortness of breath) Syncope TIA (transient ischemic attack) Tricuspid regurgitation Vitamin D deficiency - Surgical History Surgical History: Surgical History (Last Reviewed 07/10/18 @ 09:12 by Chema Monique) H/O craniotomy - Tobacco History Second Hand Smoke Exposure: No Smoking Status: Former smoker Tobacco Type: Cigarettes - Alcohol History How Often Do You Have a Drink Containing Alcohol: Unable to Obtain - Substance Use History Substance History: Unable to Obtain - Travel History Recent Travel in the [place] Within the Last 8 Weeks: No Recent Travel Out of the Country Within the Last 8 Weeks: No - Immunization History Tetanus Immunization: <5 Years Hx Influenza Vaccine This Season: Unable to Assess Medications and Allergies Active Medications: Active Medications Albuterol (Duoneb Neb (Prn)) 1 ampul NEB Q2HR NEB PRN PRN Reason: SHORTNESS OF BREATH Albuterol (Duoneb Neb (Willy)) 1 ampul NEB Q4HR NEB [facility] Last Admin: 07/10/18 15:11 Dose: 1 ampul Allopurinol (Zyloprim) 100 mg PO DAILY [facility] Last Admin: 07/10/18 09:21 Dose: 100 mg Amlodipine Besylate (Norvasc) 5 mg PO DAILY [facility] Last Admin: 07/10/18 09:22 Dose: 5 mg Aspirin (Ecotrin) 81 mg PO DAILY [facility] Last Admin: 07/10/18 09:21 Dose: 81 mg Atorvastatin Calcium (Lipitor) 20 mg PO DAILY [facility] Last Admin: 07/10/18 09:21 Dose: 20 mg Budesonide/Formoterol Fumarate (Symbicort 160/4.5 Mcg Inh) 2 puff INH BID [facility] Last Admin: 07/10/18 09:22 Dose: 2 puff Chlorhexidine Gluconate (Chlorhexidine 2% Cloth) 3 pack TOPICAL DAILY@0400 [facility] Stop: 07/14/18 03:59 Last Admin: 07/10/18 03:26 Dose: 3 pack Chlorhexidine Gluconate (Chlorhexidine 2% Cloth) 3 pack TOPICAL DAILY@0400 PRN PRN Reason: Extra cloth needed Stop: 07/14/18 03:59 Enoxaparin Sodium (Lovenox Inj) 40 mg SQ DAILY [facility] Last Admin: 07/10/18 09:22 Dose: 40 mg Famotidine (Pepcid Pf Inj) 20 mg IV.PUSH Q12HR [facility] Last Admin: 07/10/18 09:21 Dose: Not Given Cefepime HCl 2,000 mg/ Sodium (Chloride) 100 mls @ 200 mls/hr IV.SIG Q12H [facility] Last Infusion: 07/10/18 06:15 Dose: Infused Azithromycin 500 mg/ Sodium (Chloride) 250 mls @ 250 mls/hr IV.SIG Q24H [facility] Last Infusion: 07/09/18 18:28 Dose: Infused Magnesium Sulfate 4 gm/ Sodium (Chloride) 100 mls @ 50 mls/hr IV.SIG UNSCH PRN PRN Reason: For Magnesium 0.9 - 1.1 mg/dL Magnesium Sulfate 2 gm/ Sodium (Chloride) 100 mls @ 50 mls/hr IV.SIG UNSCH PRN PRN Reason: For Magnesium 1.2 - 1.6 mg/dL Potassium Chloride (Kcl 40 Meq Premix Inj) 40 meq in 100 mls @ 25 mls/hr IV.SIG Q2H PRN PRN Reason: For Potassium 2.8 - 3.2 mEq/L Potassium Chloride (Kcl 20 Meq Premix Inj) 20 meq in 100 mls @ 50 mls/hr IV.SIG Q2H PRN PRN Reason: For Potassium 3.3 - 3.5 mEq/L Potassium Chloride (Kcl 40 Meq Premix Inj) 40 meq in 100 mls @ 25 mls/hr IV.SIG UNSCH PRN PRN Reason: For Potassium 3.3 - 3.5 mEq/L Potassium Chloride (Kcl 20 Meq Premix Inj) 20 meq in 100 mls @ 50 mls/hr IV.SIG Q2H PRN PRN Reason: For Potassium 2.8 - 3.2 mEq/L Potassium Phosphate 30 mmol/ (Sodium Chloride) 260 mls @ 42 mls/hr IV.SIG UNSCH PRN PRN Reason: SEE LABEL COMMENTS Sodium Phosphate 30 mmol/ (Sodium Chloride) 260 mls @ 42 mls/hr IV.SIG UNSCH PRN PRN Reason: For Phosphorus < 2.5 mg/dL Sodium Chloride (Ns Inj) 250 mls @ 0 mls/hr IV.SIG BOLUS [facility] Last Infusion: 07/09/18 09:34 Dose: Infused Levothyroxine Sodium (Synthroid) 112 mcg PO DAILY@0600 [facility] Last Admin: 07/10/18 05:46 Dose: 112 mcg Magnesium Oxide (Mag-Ox) 800 mg PO UNSCH PRN PRN Reason: For Magnesium 1.2 - 1.6 mg/dL Methylprednisolone Sodium Succinate (Solumedrol Inj) 60 mg IV.PUSH Q8HR [facility] Last Admin: 07/10/18 15:04 Dose: 60 mg Metoprolol Succinate (Toprol Xl) 50 mg PO DAILY [facility] Last Admin: 07/10/18 09:21 Dose: 50 mg Pantoprazole Sodium (Protonix) 40 mg PO DAILY [facility] Last Admin: 07/10/18 09:21 Dose: 40 mg Potassium Bicarb/Potassium Chloride (K-Lyte Cl Eff) 50 meq PO UNSCH PRN PRN Reason: For Potassium 3.3 - 3.5 mEq/L Potassium Phosphate (K-Phos Original) 2,000 mg PO Q4H PRN PRN Reason: Phosphorus Less Than 2.5 mg/dL Potassium Phosphate (K-Phos Original) 2,000 mg PO UNSCH PRN PRN Reason: SEE LABEL COMMENTS Allergies Allergy/AdvReac Type Severity Reaction Status Date / Time Iodinated Contrast- Oral and Allergy Unknown Verified 05/22/18 08:35 IV Dye [Contrast] Home Medications Medication Instructions Recorded Confirmed Type allopurinol 100 mg PO DAILY 05/21/18 07/08/18 History amlodipine 5 mg PO DAILY 05/21/18 07/08/18 History aspirin 81 mg PO DAILY 05/21/18 07/08/18 History atorvastatin 20 mg PO DAILY 05/21/18 07/08/18 History levothyroxine 112 mcg PO DAILY 05/21/18 07/08/18 History metoprolol succinate 50 mg PO DAILY 05/21/18 07/08/18 History melatonin 6 mg PO HS PRN 07/08/18 07/08/18 History pantoprazole 40 mg PO DAILY 07/08/18 07/08/18 History Exam Vital signs: Vital Signs 07/09/18 18:00 07/09/18 20:00 07/09/18 20:08 Temperature 98.0 F Pulse Rate 97 H 90 96 H Respiratory Rate 27 H 22 Blood Pressure 139/63 Pulse Oximetry 94 L 07/09/18 20:09 07/09/18 22:00 07/09/18 23:16 Temperature Pulse Rate 81 90 Respiratory Rate 20 Blood Pressure Pulse Oximetry 94 L 07/09/18 23:17 07/10/18 00:00 07/10/18 02:00 Temperature 98.4 F Pulse Rate 87 76 Respiratory Rate 22 Blood Pressure 121/58 L Pulse Oximetry 95 100 07/10/18 03:22 07/10/18 03:23 07/10/18 04:00 Temperature 98.2 F Pulse Rate 91 H 80 Respiratory Rate 21 26 H Blood Pressure 140/60 Pulse Oximetry 98 100 07/10/18 06:00 07/10/18 07:21 07/10/18 08:00 Temperature 98.4 F Pulse Rate 88 101 H 89 Respiratory Rate 28 H 29 H Blood Pressure 143/67 H Pulse Oximetry 98 99 07/10/18 10:00 07/10/18 11:08 07/10/18 12:00 Temperature 98.5 F Pulse Rate 90 77 80 Respiratory Rate 25 H 25 H Blood Pressure 140/70 Pulse Oximetry 07/10/18 14:00 07/10/18 15:11 Temperature Pulse Rate 83 94 H Respiratory Rate 18 Blood Pressure Pulse Oximetry Intake & Output 07/09/18 07/10/18 07/10/18 18:59 06:59 18:59 Intake Total 1715 / 1715 460 / 460 1000 / 1000 Output Total 925 / 925 550 / 550 Balance 790 / 790 -90 / -90 1000 / 1000 Weight 78.5 kg 79 kg Intake: IV 1715 / 1715 100 / 100 1000 / 1000 NS + KCl 20 mEq Inj 1,000 ML @ 1000 / 1000 1000 / 1000 84 mls/hr IV.CONT .[id number] [facility] Rx#:[id number] Diprivan 1000 mg/100 ml Inj 1, 65 / 65 000 mg In 100 ml @ 5 MCG/KG/MIN 1.905 mls/hr IV.CONT TITRATE PRN Rx#:[id number] Azithromycin Inj 500 MG In NS 250 / 250 Inj 250 ML @ 250 mls/hr IV.SIG Q24H [facility] Rx#:[id number] Maxipime Inj 2,000 MG In NS Inj 100 / 100 100 / 100 100 ML @ 200 mls/hr IV.SIG Q12H [facility] Rx#:[id number] NS Inj 250 ML @ Wide Open IV. 250 / 250 SIG BOLUS [facility] Rx#:[id number] fentaNYL 10 mcg/mL Premix Drip 50 / 50 2,500 mcg In 250 ml @ 50 MCG/HR 5 mls/hr IV.SIG TITRATE PRN Rx #:[id number] Oral 360 / 360 Output: Urine 550 / 550 Urine Amount (Catheter) 925 / 925 Indwelling Urethral Catheter 925 / 925 Other: # Bowel Movements 0 0 Weight On Admission 78.5 kg - Constitutional no acute distress - Routine HEENT Exam Head: Present: normocephalic, atraumatic Eye: Present: EOMI, PERRL ENT: Present: mucous membranes moist - Routine Neck Exam Present: supple, full ROM - Routine Respiratory Exam Present: CTA bilaterally - Routine Cardiovascular Exam Present: RRR - Routine Abdominal Exam Present: soft, normoactive bowel sounds - Routine Neurological Exam Present: alert Results - Labs Result diagrams: 07/10/18 02:43 07/10/18 02:43 Abnormal lab results 07/10/18 07/10/18 Range/Units 02:43 02:43 WBC 12.7 H (4.0-11.0) th/mm3 RBC 3.72 L (4.00-5.30) mil/mm3 Hgb 10.1 L (11.6-15.3) gm/dL Hct 32.3 L (35.0-46.0) % MCHC 31.3 L (32.0-36.0) % RDW 18.8 H (11.6-17.2) % Sodium 146 H (136-145) meq/L Chloride 112 H (98-107) meq/L BUN 29 H (7-18) mg/dL Creatinine 1.18 H (0.50-1.00) mg/dL Estimated GFR 46 L (>89) mL/min Random Glucose 109 H (74-106) mg/dL Magnesium 2.7 H (1.5-2.5) mg/dL Albumin 2.2 L (3.4-5.0) g/dL Short CBC 07/10/18 Range/Units 02:43 WBC 12.7 H (4.0-11.0) th/mm3 Hgb 10.1 L (11.6-15.3) gm/dL Hct 32.3 L (35.0-46.0) % Plt Count 225 (150-450) th/mm3 BMP 07/10/18 02:43 Sodium 146 H Potassium 4.6 Chloride 112 H Carbon Dioxide 28.0 BUN 29 H Creatinine 1.18 H Calcium 8.6 Liver Function 07/10/18 Range/Units 02:43 Total Bilirubin 0.2 (0.2-1.0) mg/dL AST 22 (15-37) U/L ALT 26 (10-53) U/L Alkaline Phosphatase 103 (45-117) U/L Albumin 2.2 L (3.4-5.0) g/dL - Imaging Impressions Chest X-Ray 07/10/18 06:00 CONCLUSION: Endotracheal tube and nasogastric tube no longer seen. Patchy right midlung zone opacity unchanged. Assessment and Plan - Assessment (1) CHF (congestive heart failure) Code(s): I50.9 - Heart failure, unspecified Status: Acute Qualifiers: Heart failure type: unspecified Heart failure chronicity: acute Qualified Code(s): I50.9 - Heart failure, unspecified Plan: stabilized (2) COPD (chronic obstructive pulmonary disease) Code(s): J44.9 - Chronic obstructive pulmonary disease, unspecified Status: Acute - Assessment and Plan Discharge Planning: pt would benefit [place] [facility] [place] [place] will consult pt
[2018-07-10] MEDS: Azithromycin Inj 500 MG in Sodium Chlor 0.9% Inj 250 ML IV.SIG SCH (18:45)
--- NOTE | 2018-07-10 20:25 | CT ---
EXAM DATE: 07/10/2018 7:38 PM EDT AGE/SEX: 68 years / Female INDICATIONS: Shortness of breath. Evaluate for lung mass. CLINICAL DATA: This is the patient's initial encounter. Patient reports that signs and symptoms have been present for 1 day and indicates a pain score of 0/10. MEDICAL/SURGICAL HISTORY: . Renal insufficiency. Stroke. Hypertension. Craniotomy. RADIATION DOSE: 7.27 CTDI (mGy) COMPARISON: [facility], CT CHEST W/O CONTRAST, 05/23/2018. . TECHNIQUE: Multiple contiguous axial images were obtained through the chest without contrast. Image s were obtained in suspended respiration using multiple row detector helical technique. Using automa juan exposure control and adjustment of the mA and/or kV according to patient size, radiation dose was kept as low as reasonably achievable to obtain optimal diagnostic quality images. DICOM format imag e data is available electronically for review and comparison. FINDINGS: Lungs: There is a new area of dense consolidation in the superior segment of the right lower lobe me asuring 4.0 x 4.6 cm; there are some air bronchograms within this new opacity. There is a second subs egmental area of consolidation with air bronchograms located in the anterior right midlung measuring 2.4 cm. Right lower lobe with infiltrates with peribronchial thickening is similar in appearance to p rior CT 05/23/2018. No focal infiltrates in the left lung. Mediastinum: Precarinal lymph nodes measuring up to 1.5 cm, stable in appearance from prior. Coronar y artery calcifications. Pleurae: Stable size small right pleural effusion measuring up to 12 mm in thickness. There has been an interval increase in the size of the left pleural effusion, now measuring 1.5 cm. Axillae: Unremarkable. Bony Structures: Unremarkable. CONCLUSION: 1. There are 2 new opacities in the right lung, both of which contain air bronchograms and are suspi cious for areas of subsegmental consolidation. 2. Stable small right pleural effusion and mild increase in size of left pleural effusion. Electronically signed by: Rudi Garcia MD 07/10/2018 8:24 PM EDT
[2018-07-11] MEDS: Levothyroxine 112 MCG Tablet PO SCH (05:16)
[2018-07-11] MEDS: MethylPREDNISolone Sod Succinate Inj 125 MG/2 ML Vial IV.PUSH SCH (05:16)
[2018-07-11] MEDS: Chlorhexidine Gluconate 2% 1 Pack (2 Cloths) TOPICAL SCH (06:59)
[2018-07-11] MEDS: Allopurinol 100 MG Tablet PO SCH (08:32)
[2018-07-11] MEDS: amLODIPine 5 MG Tablet PO SCH (08:33)
[2018-07-11] MEDS: Enoxaparin Inj 40 MG/0.4 ML Syringe SQ SCH (08:33)
[2018-07-11] MEDS: Budesonide-Formoterol 160/4.5 MCG 6 GM Inhaler INH SCH ×2 (08:34→21:03)
[2018-07-11] MEDS: Famotidine PF Inj 20 MG/2 ML Vial IV.PUSH SCH ×2 (08:34→21:02)
--- NOTE | 2018-07-11 09:42 | P.PNFP ---
Subjective Interval history: Still quite coarse dyspneic with conversation wants to go home Results - Labs Result diagrams: 07/10/18 02:43 07/10/18 02:43 - Imaging Impressions Chest CT 07/10/18 00:00 CONCLUSION: 1. There are 2 new opacities in the right lung, both of which contain air bronchograms and are suspicious for areas of subsegmental consolidation. 2. Stable small right pleural effusion and mild increase in size of left pleural effusion. Physical Exam Vital signs: Vital Signs 07/10/18 10:00 07/10/18 11:08 07/10/18 12:00 Temperature 98.5 F Pulse Rate 90 77 80 Respiratory Rate 25 H 25 H Blood Pressure 140/70 Pulse Oximetry 07/10/18 14:00 07/10/18 15:11 07/10/18 16:00 Temperature 98.4 F Pulse Rate 83 94 H 99 H Respiratory Rate 18 25 H Blood Pressure 133/69 Pulse Oximetry 07/10/18 18:00 07/10/18 20:00 07/10/18 20:39 Temperature 98.5 F Pulse Rate 93 H 86 89 Respiratory Rate 20 19 Blood Pressure 143/80 H Pulse Oximetry 07/10/18 20:40 07/10/18 22:00 07/10/18 23:18 Temperature 98.1 F Pulse Rate 92 H 85 Respiratory Rate 20 16 Blood Pressure 153/77 H Pulse Oximetry 95 07/11/18 00:00 07/11/18 02:00 07/11/18 03:36 Temperature 98.0 F Pulse Rate 92 H 84 80 Respiratory Rate 20 16 Blood Pressure 138/66 Pulse Oximetry 07/11/18 04:00 07/11/18 06:00 Temperature 98.0 F Pulse Rate 92 H 80 Respiratory Rate 20 16 Blood Pressure 138/66 Pulse Oximetry Intake & Output 07/10/18 07/11/18 07/11/18 18:59 06:59 18:59 Intake Total 1600 / 1600 340 / 340 Output Total 350 / 350 Balance 1600 / 1600 -10 / -10 Weight 82.1 kg 83.5 kg Intake: IV 1100 / 1100 100 / 100 NS + KCl 20 mEq Inj 1,000 ML @ 1000 / 1000 84 mls/hr IV.CONT .[id number] [facility] Rx#:[id number] Maxipime Inj 2,000 MG In NS Inj 100 / 100 100 / 100 100 ML @ 200 mls/hr IV.SIG Q12H [facility] Rx#:[id number] Oral 500 / 500 240 / 240 Output: Urine 350 / 350 Other: # Voids 5 # Bowel Movements 0 0 - Constitutional no acute distress - Routine HEENT Exam Head: Present: normocephalic Eye: Present: PERRL ENT: Present: mucous membranes moist - Routine Respiratory Exam Present: rales, diminished air movement - Routine Cardiovascular Exam Present: S1, S2 - Routine Abdominal Exam Present: soft, normoactive bowel sounds - Routine Skin Exam Present: dry, warm - Routine Neurological Exam Present: alert, oriented X3 - Routine Psychiatric Exam Present: cooperative - Urinary Catheter Management Indwelling Urethral Catheter Cath placed during this visit: yes Reason for continuing: Acute urinary retention Insertion date: 07/08/18 Insertion time: 16:13 Assessment and Plan - Assessment (1) CHF (congestive heart failure) Code(s): I50.9 - Heart failure, unspecified Status: Acute Plan: stabilized (2) COPD (chronic obstructive pulmonary disease) Code(s): J44.9 - Chronic obstructive pulmonary disease, unspecified Status: Acute Plan: Soliumedrol Q8, antibiotics, Ceftipime,azithromax cont w/ bronchodilators, oxygen support transition to po steroids (1) CHF (congestive heart failure) Qualifiers: Heart failure type: unspecified Heart failure chronicity: acute Qualified Code(s): I50.9 - Heart failure, unspecified
[2018-07-11] MEDS: predniSONE 10 MG Tablet PO SCH ×2 (12:33→17:00)
--- NOTE | 2018-07-11 13:01 | MB ---
cc: Jose Mack MD DATE: 07/11/2018 DATE OF CONSULTATION: 07/11/2018 REQUESTING PHYSICIAN: Dr. Vincent Corbin. REASON FOR CONSULTATION: Pulm management for COPD . HISTORY OF PRESENT ILLNESS: Ms. Ma is a pleasant 58-year-old white female; rather poor historian. She has history of COPD. She is not sure if she has any oxygen or nebulizer machine at home. The patient also has a history of TIA, CVA and chronic kidney disease. The patient came to the hospital with worsening of her shortness of breath. She was given bronchodilator treatment in the emergency room; she was found to have hypercapnic respiratory failure. She was intubated after 2 days, she has been extubated. Now, she is weaned to room air and she ambulates. She says that normally she is fully active. Denies any fever, chills. No night sweats. No DVT or pulmonary embolism. PAST MEDICAL HISTORY: Significant for history of hypertension, COPD, 6 TIA and see me. MEDICATIONS: She is currently takin. Albuterol and Atrovent nebulizer treatment. 2. Xalatan 100 mg a day. 3. Amlodipine 5 mg a day. 4. Ecotrin 81 mg a day. 5. Lipitor 20 mg a day. 6. Zithromax 500 mg a day. 7. Symbicort 160/4.5 two puffs twice a day. 4. Cefepime 2 g every 12 hours. 5. Lovenox 40 mg a day. 6. Famotidine 20 mg daily. 7. Levothyroxine 112 mcg. 8. Solu-Medrol 60 mg every 8 hours. 9. Metoprolol 50 mg a day. 10. Protonix 40 mg a day. 11. Potassium supplement. ALLERGIES: SHE IS ALLERGIC TO IODINE. SOCIAL HISTORY: She is from her . 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 She has a long history of smoking which she quit 10 years ago. Denies any alcohol abuse. FAMILY HISTORY: She has two sons; one lives in [place], one [address]. REVIEW OF SYSTEMS: The patient denies any weight loss. Denies any malignancy. No DVT or pulmonary embolism. Normally, she is up, around and active. No weight loss. No history of any liver or gallbladder problem. PHYSICAL EXAMINATION: GENERAL: Elderly female, not in any acute distress at this time. VITAL SIGNS: Blood pressure 169/94, heart rate 86, respiration 22, temperature 97.6. HEENT: Pupils are equal and reactive to light. 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 NECK: Supple. JVP not raised. CHEST: She has hyperresonant chest. No rhonchi. HEART: S1, S2 normal. ABDOMEN: Soft, nondistended. Bowel sounds are present. EXTREMITIES: No edema. IMPRESSION: 1. Hypercapnic respiratory failure, status post extubation. 2. Chronic obstructive pulmonary disease. 3. History of transient ischemic attack. PLAN: I discussed with the patient; I will check a pulmonary function study. We will check her need for home oxygen therapy and nebulizer treatment. I discontinue Solu-Medrol, put her on prednisone 10 mg 3 times a day, Symbicort twice a day. Continue her antibiotic. We will check pulmonary function study. Further treatment pending the course in the hospital. MD DORON Woods/woody/anna , 11:19 AM , 11:38 AM MTDD
[2018-07-11] MEDS: Azithromycin Inj 500 MG in Sodium Chlor 0.9% Inj 250 ML IV.SIG SCH (17:45)
[2018-07-12] MEDS: Chlorhexidine Gluconate 2% 1 Pack (2 Cloths) TOPICAL SCH (04:58)
[2018-07-12] MEDS: Levothyroxine 112 MCG Tablet PO SCH (06:30)
[2018-07-12 07:44] LABS: Hemoglobin 11.1 gm/dL (11.6-15.3); Mean Corpuscular HGB Conc 31.7 % (32.0-36.0); Mean Corpuscular Hemoglobin 26.8 pg (27.0-34.0); Mean Corpuscular Volume 84.5 fL (80.0-100.0); Mean Platelet Volume 7.2 fL (7.0-11.0); Platelet Count 237 th/mm3 (150-450); Red Blood Count 4.15 mil/mm3 (4.00-5.30); Red Cell Distribution Width 18.7 % (11.6-17.2); White Blood Count 10.8 th/mm3 (4.0-11.0)
[2018-07-12 08:01] LABS: Calcium 9.2 mg/dL (8.5-10.1); Carbon Dioxide 29.3 meq/L (21.0-32.0); Potassium 4.3 meq/L (3.5-5.1)
[2018-07-12] MEDS: Allopurinol 100 MG Tablet PO SCH (08:43)
[2018-07-12] MEDS: predniSONE 10 MG Tablet PO SCH ×3 (08:44→17:55)
[2018-07-12] MEDS: Famotidine PF Inj 20 MG/2 ML Vial IV.PUSH SCH ×2 (08:44→21:20)
[2018-07-12] MEDS: amLODIPine 5 MG Tablet PO SCH (08:44)
[2018-07-12] MEDS: Budesonide-Formoterol 160/4.5 MCG 6 GM Inhaler INH SCH ×2 (08:45→21:20)
[2018-07-12] MEDS: Enoxaparin Inj 40 MG/0.4 ML Syringe SQ SCH (08:45)
--- NOTE | 2018-07-12 10:08 | P.PNFP ---
Subjective Interval history: She tells me she is feeling stronger and breathin is slightly improved. Results - Labs Result diagrams: 07/12/18 07:26 07/12/18 07:26 Abnormal lab results 07/12/18 07/12/18 Range/Units 07:26 07:26 Hgb 11.1 L (11.6-15.3) gm/dL MCH 26.8 L (27.0-34.0) pg MCHC 31.7 L (32.0-36.0) % RDW 18.7 H (11.6-17.2) % Sodium 146 H (136-145) meq/L Chloride 110 H (98-107) meq/L BUN 31 H (7-18) mg/dL Creatinine 1.13 H (0.50-1.00) mg/dL Estimated GFR 48 L (>89) mL/min Short CBC 07/12/18 Range/Units 07:26 WBC 10.8 (4.0-11.0) th/mm3 Hgb 11.1 L (11.6-15.3) gm/dL Hct 35.0 (35.0-46.0) % Plt Count 237 (150-450) th/mm3 BMP 07/12/18 07:26 Sodium 146 H Potassium 4.3 Chloride 110 H Carbon Dioxide 29.3 BUN 31 H Creatinine 1.13 H Calcium 9.2 - Diagnostic results Chest x-ray: report reviewed, image reviewed Physical Exam Vital signs: Vital Signs 07/11/18 11:00 07/11/18 11:27 07/11/18 12:00 Temperature 98.3 F Pulse Rate 88 82 88 Respiratory Rate 18 20 Blood Pressure 141/80 H Pulse Oximetry 91 L 07/11/18 13:00 07/11/18 14:00 07/11/18 15:00 Temperature Pulse Rate 88 100 H 98 H Respiratory Rate Blood Pressure Pulse Oximetry 07/11/18 15:03 07/11/18 16:00 07/11/18 17:00 Temperature 98.0 F Pulse Rate 92 H 100 H 92 H Respiratory Rate 20 20 Blood Pressure 155/82 H Pulse Oximetry 91 L 94 L 07/11/18 18:00 07/11/18 19:00 07/11/18 19:23 Temperature Pulse Rate 91 H 105 H 91 H Respiratory Rate 18 Blood Pressure Pulse Oximetry 07/11/18 20:00 07/11/18 21:00 07/11/18 22:00 Temperature Pulse Rate 90 92 H 88 Respiratory Rate 20 Blood Pressure 155/92 H Pulse Oximetry 92 L 07/11/18 23:00 07/11/18 23:53 07/12/18 00:00 Temperature 97.9 F Pulse Rate 100 H 84 86 Respiratory Rate 20 18 Blood Pressure 154/90 H Pulse Oximetry 93 L 07/12/18 01:00 07/12/18 02:00 07/12/18 03:00 Temperature Pulse Rate 86 82 81 Respiratory Rate Blood Pressure Pulse Oximetry 07/12/18 03:54 07/12/18 04:00 07/12/18 05:00 Temperature Pulse Rate 84 78 82 Respiratory Rate 16 Blood Pressure 168/93 H Pulse Oximetry 92 L 07/12/18 06:00 07/12/18 07:50 Temperature Pulse Rate 76 77 Respiratory Rate 18 Blood Pressure Pulse Oximetry 92 L Intake & Output 07/11/18 07/12/18 07/12/18 18:59 06:59 18:59 Intake Total 1210 / 1210 440 / 440 Output Total 200 / 200 Balance 1010 / 1010 440 / 440 Weight 83.5 kg 85 kg Intake: IV 250 / 250 200 / 200 Azithromycin Inj 500 MG In NS 250 / 250 Inj 250 ML @ 250 mls/hr IV.SIG Q24H [facility] Rx#:[id number] Maxipime Inj 2,000 MG In NS Inj 200 / 200 100 ML @ 200 mls/hr IV.SIG Q12H [facility] Rx#:[id number] Oral 960 / 960 240 / 240 Output: Urine 200 / 200 Other: # Voids 3 2 # Bowel Movements 0 - Constitutional no acute distress - Routine HEENT Exam Head: Present: normocephalic Eye: Present: PERRL ENT: Present: mucous membranes moist - Routine Neck Exam Present: supple, full ROM - Routine Respiratory Exam Present: crackles - Routine Cardiovascular Exam Present: RRR, S1, S2 - Routine Abdominal Exam Present: soft, normoactive bowel sounds - Routine Extremities Exam Present: full ROM - Routine Neurological Exam Present: alert, oriented X3 - Detailed Neurological Exam: Coma Scale Eye Opening: Spontaneous Verbal Response: Oriented Motor Response: Obey commands Danya Coma Scale Total: 15 - Urinary Catheter Management Indwelling Urethral Catheter Cath placed during this visit: yes, but has since been removed by the nurse Reason for continuing: Acute urinary retention Insertion date: 07/08/18 Insertion time: 16:13 Removal date: 07/09/18 Removal time: 17:30 Assessment and Plan - Assessment (1) CHF (congestive heart failure) Code(s): I50.9 - Heart failure, unspecified Status: Acute Plan: stabilized and cards is following (2) COPD (chronic obstructive pulmonary disease) Code(s): J44.9 - Chronic obstructive pulmonary disease, unspecified Status: Acute Plan: Soliumedrol Q8, antibiotics, Ceftipime,azithromax cont w/ bronchodilators, oxygen support transition to po steroids. She cont to have scattered rales. - Assessment and Plan F/U Cards an Pulm recommendations Discussed Condition With: Patient and nurse (1) CHF (congestive heart failure) Qualifiers: Heart failure type: unspecified Heart failure chronicity: acute Qualified Code(s): I50.9 - Heart failure, unspecified
--- NOTE | 2018-07-12 14:15 | P.PNPL ---
Subjective Interval history: 68 YOWF with COPD, hypercapnoic RF breathing better Up in chair Denies wheezing, cough or sp Physical Exam Vital signs: Vital Signs 07/11/18 15:00 07/11/18 15:03 07/11/18 16:00 Temperature 98.0 F Pulse Rate 98 H 92 H 100 H Respiratory Rate 20 20 Blood Pressure 155/82 H Pulse Oximetry 91 L 94 L 07/11/18 17:00 07/11/18 18:00 07/11/18 19:00 Temperature Pulse Rate 92 H 91 H 105 H Respiratory Rate Blood Pressure Pulse Oximetry 07/11/18 19:23 07/11/18 20:00 07/11/18 21:00 Temperature Pulse Rate 91 H 90 92 H Respiratory Rate 18 20 Blood Pressure 155/92 H Pulse Oximetry 92 L 07/11/18 22:00 07/11/18 23:00 07/11/18 23:53 Temperature Pulse Rate 88 100 H 84 Respiratory Rate 20 Blood Pressure Pulse Oximetry 07/12/18 00:00 07/12/18 01:00 07/12/18 02:00 Temperature 97.9 F Pulse Rate 86 86 82 Respiratory Rate 18 Blood Pressure 154/90 H Pulse Oximetry 93 L 07/12/18 03:00 07/12/18 03:54 07/12/18 04:00 Temperature Pulse Rate 81 84 78 Respiratory Rate 16 Blood Pressure 168/93 H Pulse Oximetry 92 L 07/12/18 05:00 07/12/18 06:00 07/12/18 07:00 Temperature Pulse Rate 82 76 89 Respiratory Rate Blood Pressure Pulse Oximetry 07/12/18 07:50 07/12/18 08:00 07/12/18 09:00 Temperature 98.1 F Pulse Rate 77 96 H 86 Respiratory Rate 18 20 Blood Pressure 169/84 H Pulse Oximetry 92 L 93 L 07/12/18 10:00 07/12/18 11:00 07/12/18 12:00 Temperature 98.1 F Pulse Rate 76 77 90 Respiratory Rate 20 Blood Pressure 142/95 H Pulse Oximetry 91 L 07/12/18 13:49 Temperature Pulse Rate 79 Respiratory Rate Blood Pressure Pulse Oximetry Intake & Output 07/11/18 07/12/18 07/12/18 18:59 06:59 18:59 Intake Total 1210 / 1210 440 / 440 Output Total 200 / 200 Balance 1010 / 1010 440 / 440 Weight 83.5 kg 85 kg Intake: IV 250 / 250 200 / 200 Azithromycin Inj 500 MG In NS 250 / 250 Inj 250 ML @ 250 mls/hr IV.SIG Q24H [facility] Rx#:[id number] Maxipime Inj 2,000 MG In NS Inj 200 / 200 100 ML @ 200 mls/hr IV.SIG Q12H [facility] Rx#:[id number] Oral 960 / 960 240 / 240 Output: Urine 200 / 200 Other: # Voids 3 2 # Bowel Movements 0 GENERAL: Elderly WF,NAD SKIN: Warm and dry. HEAD: Normocephalic. EYES: No scleral icterus. No injection or drainage. NECK: Supple, trachea midline. No JVD or lymphadenopathy. CARDIOVASCULAR: Regular rate and rhythm without murmurs, gallops, or rubs. RESPIRATORY: Breath sounds equal bilaterally. No accessory muscle use. GASTROINTESTINAL: Abdomen soft, non-tender, nondistended. MUSCULOSKELETAL: No cyanosis, or edema. BACK: Nontender without obvious deformity. No CVA tenderness. - Urinary Catheter Management Indwelling Urethral Catheter Cath placed during this visit: yes, but has since been removed by the nurse Reason for continuing: Acute urinary retention Insertion date: 07/08/18 Insertion time: 16:13 Removal date: 07/09/18 Removal time: 17:30 Assessment and Plan - Plan IMPRESSION: 1. Hypercapnic respiratory failure, status post extubation. 2. Chronic obstructive pulmonary disease. 3. History of transient ischemic attack. PLAN: Aerosol nebs Symbicort 2 puffs bid Prednisone 10 mg tid Stable on RA Cont Abx
[2018-07-12] MEDS: Azithromycin Inj 500 MG in Sodium Chlor 0.9% Inj 250 ML IV.SIG SCH (17:54)
[2018-07-13] MEDS: Chlorhexidine Gluconate 2% 1 Pack (2 Cloths) TOPICAL SCH (03:13)
[2018-07-13] MEDS: Levothyroxine 112 MCG Tablet PO SCH (05:23)
[2018-07-13 06:39] LABS: Hematocrit 34.8 % (35.0-46.0); Hemoglobin 10.9 gm/dL (11.6-15.3); Mean Corpuscular HGB Conc 31.4 % (32.0-36.0); Mean Corpuscular Hemoglobin 26.7 pg (27.0-34.0); Mean Platelet Volume 7.3 fL (7.0-11.0); Platelet Count 215 th/mm3 (150-450); Red Blood Count 4.09 mil/mm3 (4.00-5.30); Red Cell Distribution Width 18.7 % (11.6-17.2); White Blood Count 8.1 th/mm3 (4.0-11.0)
[2018-07-13 07:01] LABS: Calcium 8.4 mg/dL (8.5-10.1); Carbon Dioxide 27.3 meq/L (21.0-32.0); Potassium 4.3 meq/L (3.5-5.1)
[2018-07-13] MEDS: Enoxaparin Inj 40 MG/0.4 ML Syringe SQ SCH (08:12)
[2018-07-13] MEDS: Famotidine PF Inj 20 MG/2 ML Vial IV.PUSH SCH ×2 (08:12→20:37)
[2018-07-13] MEDS: amLODIPine 5 MG Tablet PO SCH (08:12)
[2018-07-13] MEDS: predniSONE 10 MG Tablet PO SCH ×3 (08:12→17:18)
[2018-07-13] MEDS: Budesonide-Formoterol 160/4.5 MCG 6 GM Inhaler INH SCH ×2 (08:12→20:37)
[2018-07-13] MEDS: Allopurinol 100 MG Tablet PO SCH (08:13)
--- NOTE | 2018-07-13 10:09 | P.PNFP ---
Subjective Interval history: Patient seen and examined in her room this AM. She tells me her breathing continues to improve. She is hopeful for D/C tomorrow. Results - Labs Result diagrams: 07/13/18 05:55 07/13/18 05:55 Abnormal lab results 07/13/18 07/13/18 Range/Units 05:55 05:55 Hgb 10.9 L (11.6-15.3) gm/dL Hct 34.8 L (35.0-46.0) % MCH 26.7 L (27.0-34.0) pg MCHC 31.4 L (32.0-36.0) % RDW 18.7 H (11.6-17.2) % BUN 31 H (7-18) mg/dL Estimated GFR 57 L (>89) mL/min Calcium 8.4 L D (8.5-10.1) mg/dL Short CBC 07/13/18 Range/Units 05:55 WBC 8.1 (4.0-11.0) th/mm3 Hgb 10.9 L (11.6-15.3) gm/dL Hct 34.8 L (35.0-46.0) % Plt Count 215 (150-450) th/mm3 BMP 07/13/18 05:55 Sodium 142 Potassium 4.3 Chloride 107 Carbon Dioxide 27.3 BUN 31 H Creatinine 0.98 Calcium 8.4 L D Physical Exam Vital signs: Vital Signs 07/12/18 11:00 07/12/18 12:00 07/12/18 13:49 Temperature 98.1 F Pulse Rate 77 90 79 Respiratory Rate 20 Blood Pressure 142/95 H Pulse Oximetry 91 L 07/12/18 14:00 07/12/18 15:00 07/12/18 16:00 Temperature 98.5 F Pulse Rate 93 H 94 H 80 Respiratory Rate 20 Blood Pressure 166/89 H Pulse Oximetry 94 L 07/12/18 17:00 07/12/18 18:00 07/12/18 19:00 Temperature Pulse Rate 96 H 84 88 Respiratory Rate Blood Pressure Pulse Oximetry 07/12/18 20:00 07/12/18 21:00 07/12/18 22:00 Temperature 97.9 F Pulse Rate 92 H 72 88 Respiratory Rate 22 Blood Pressure 182/97 H Pulse Oximetry 90 L 07/12/18 23:00 07/12/18 23:36 07/13/18 00:00 Temperature 98.6 F Pulse Rate 75 84 70 Respiratory Rate 20 Blood Pressure 190/109 H Pulse Oximetry 92 L 07/13/18 01:00 07/13/18 02:00 07/13/18 03:00 Temperature Pulse Rate 68 68 67 Respiratory Rate Blood Pressure Pulse Oximetry 07/13/18 03:23 07/13/18 04:00 07/13/18 05:00 Temperature 98.2 F Pulse Rate 82 66 Respiratory Rate 18 20 Blood Pressure 187/109 H Pulse Oximetry 91 L 07/13/18 05:58 07/13/18 07:00 07/13/18 08:00 Temperature 97.8 F Pulse Rate 66 59 L 66 Respiratory Rate 18 Blood Pressure 162/94 H Pulse Oximetry 91 L 07/13/18 09:00 Temperature Pulse Rate 72 Respiratory Rate Blood Pressure Pulse Oximetry Intake & Output 07/12/18 07/13/18 07/13/18 18:59 06:59 18:59 Intake Total 820 / 820 590 / 590 Output Total 900 / 900 200 / 200 Balance -80 / -80 390 / 390 Weight 77.4 kg Intake: IV 100 / 100 350 / 350 Azithromycin Inj 500 MG In NS 250 / 250 Inj 250 ML @ 250 mls/hr IV.SIG Q24H [facility] Rx#:[id number] Maxipime Inj 2,000 MG In NS Inj 100 / 100 100 / 100 100 ML @ 200 mls/hr IV.SIG Q12H [facility] Rx#:[id number] Oral 720 / 720 240 / 240 Output: Urine 900 / 900 200 / 200 Other: # Voids 3 # Incontinent Voids 2 - Constitutional no acute distress - Routine HEENT Exam Head: Present: normocephalic Eye: Present: EOMI, PERRL ENT: Present: mucous membranes moist - Routine Neck Exam Present: supple, full ROM - Routine Respiratory Exam Present: distant breath sounds - Routine Cardiovascular Exam Present: irregularly irregular - Routine Abdominal Exam Present: soft, normoactive bowel sounds - Routine Extremities Exam Present: full ROM Comments: 1+ bilat pitting edema - Routine Skin Exam Present: intact - Routine Neurological Exam Present: alert, oriented X3 - Detailed Neurological Exam: Coma Scale Eye Opening: Spontaneous Verbal Response: Oriented Motor Response: Obey commands Danya Coma Scale Total: 15 - Routine Psychiatric Exam Present: normal affect - Urinary Catheter Management Indwelling Urethral Catheter Cath placed during this visit: yes, but has since been removed by the nurse Reason for continuing: Acute urinary retention Insertion date: 07/08/18 Insertion time: 16:13 Removal date: 07/09/18 Removal time: 17:30 Assessment and Plan - Assessment (1) CHF (congestive heart failure) Code(s): I50.9 - Heart failure, unspecified Status: Acute Plan: stabilized and cards is following. Edema persists but breathing subjectively improved. (2) COPD (chronic obstructive pulmonary disease) Code(s): J44.9 - Chronic obstructive pulmonary disease, unspecified Status: Acute Plan: Antibiotics including Ceftipime and azithromycin on board cont w/ bronchodilators, oxygen support transitioned to po steroids. She cont to have decreased BS bilat. - Assessment and Plan F/U Cards and Pulm recommendations, D/C when cleared (1) CHF (congestive heart failure) Qualifiers: Heart failure type: unspecified Heart failure chronicity: acute Qualified Code(s): I50.9 - Heart failure, unspecified
--- NOTE | 2018-07-13 16:09 | P.PNPL ---
Subjective Interval history: 68 YOWF with COPD, hypercapnoic RF breathing better Up in chair Denies wheezing, cough or sputum On RA, ambulates Physical Exam Vital signs: Vital Signs 07/12/18 17:00 07/12/18 18:00 07/12/18 19:00 Temperature Pulse Rate 96 H 84 88 Respiratory Rate Blood Pressure Pulse Oximetry 07/12/18 20:00 07/12/18 21:00 07/12/18 22:00 Temperature 97.9 F Pulse Rate 92 H 72 88 Respiratory Rate 22 Blood Pressure 182/97 H Pulse Oximetry 90 L 07/12/18 23:00 07/12/18 23:36 07/13/18 00:00 Temperature 98.6 F Pulse Rate 75 84 70 Respiratory Rate 20 Blood Pressure 190/109 H Pulse Oximetry 92 L 07/13/18 01:00 07/13/18 02:00 07/13/18 03:00 Temperature Pulse Rate 68 68 67 Respiratory Rate Blood Pressure Pulse Oximetry 07/13/18 03:23 07/13/18 04:00 07/13/18 05:00 Temperature 98.2 F Pulse Rate 82 66 Respiratory Rate 18 20 Blood Pressure 187/109 H Pulse Oximetry 91 L 07/13/18 05:58 07/13/18 07:00 07/13/18 08:00 Temperature 97.8 F Pulse Rate 66 59 L 66 Respiratory Rate 18 Blood Pressure 162/94 H Pulse Oximetry 91 L 07/13/18 09:00 07/13/18 10:00 07/13/18 11:00 Temperature Pulse Rate 72 70 75 Respiratory Rate Blood Pressure Pulse Oximetry 07/13/18 12:00 07/13/18 13:00 07/13/18 14:00 Temperature 98.2 F Pulse Rate 74 74 74 Respiratory Rate 18 Blood Pressure 148/89 H Pulse Oximetry 93 L Intake & Output 07/12/18 07/13/18 07/13/18 18:59 06:59 18:59 Intake Total 820 / 820 590 / 590 Output Total 900 / 900 200 / 200 Balance -80 / -80 390 / 390 Weight 77.4 kg Intake: IV 100 / 100 350 / 350 Azithromycin Inj 500 MG In NS 250 / 250 Inj 250 ML @ 250 mls/hr IV.SIG Q24H [facility] Rx#:[id number] Maxipime Inj 2,000 MG In NS Inj 100 / 100 100 / 100 100 ML @ 200 mls/hr IV.SIG Q12H [facility] Rx#:[id number] Oral 720 / 720 240 / 240 Output: Urine 900 / 900 200 / 200 Other: # Voids 3 # Incontinent Voids 2 GENERAL: Elderly WF,NAD SKIN: Warm and dry. HEAD: Normocephalic. EYES: No scleral icterus. No injection or drainage. NECK: Supple, trachea midline. No JVD or lymphadenopathy. CARDIOVASCULAR: Regular rate and rhythm without murmurs, gallops, or rubs. RESPIRATORY: Breath sounds equal bilaterally. No accessory muscle use. GASTROINTESTINAL: Abdomen soft, non-tender, nondistended. MUSCULOSKELETAL: No cyanosis, or edema. BACK: Nontender without obvious deformity. No CVA tenderness. - Urinary Catheter Management Indwelling Urethral Catheter Cath placed during this visit: yes, but has since been removed by the nurse Reason for continuing: Acute urinary retention Insertion date: 07/08/18 Insertion time: 16:13 Removal date: 07/09/18 Removal time: 17:30 Assessment and Plan - Plan IMPRESSION: 1. Hypercapnic respiratory failure, status post extubation. 2. Chronic obstructive pulmonary disease. 3. History of transient ischemic attack. PLAN: Aerosol nebs Symbicort 2 puffs bid Prednisone 10 mg tid Stable on RA Cont Abx DC plans underway
[2018-07-13] MEDS: Azithromycin Inj 500 MG in Sodium Chlor 0.9% Inj 250 ML IV.SIG SCH (17:18)
[2018-07-14] MEDS: Levothyroxine 112 MCG Tablet PO SCH (04:59)
--- NOTE | 2018-07-14 07:10 | P.DCO ---
- Home Health Nursing Order: Signs/symptoms of disease process (copd excerbation, oxygen saturation ) - Case Management Consult Yes - Certification I have seen patient Sydni Ma on 07/14/18. My clinical findings support the need for the requested home health care services because: Patient has SOB I certify that my clinical findings support that this patient is homebound because: Hx COPD - exertion dyspnea/weakness
--- NOTE | 2018-07-14 08:26 | P.DS ---
Date of admission: 07/08/18 16:12 Primary care physician: Carlo Vang MD Brief History from admission: Patient is a 68-year-old female with past medical history significant for COPD on home oxygen, congestive heart failure, history of TIA/CVA, chronic kidney disease, hypothyroidism, dyslipidemia, history of tricuspid regurgitation , who presented to the emergency department with severe shortness of breath secondary to acute COPD exacerbation and pneumonia. Patient received [id number] DuoNeb breathing treatments and IV Solu-Medrol and IV magnesium without improvement. Despite 1 hour of BiPAP patient remained tachypneic and lethargic with worsening encephalopathy. Chest x-ray showed right upper lobe pneumonia. She was admitted to ICU. Transferred to stepdown, continued to be trated with bronchodilators, IV ceftipime, and azithromicin as well as oxygen support. DS: Diagnosis - Discharge Diagnosis (1) CHF (congestive heart failure) Status: Acute (2) COPD (chronic obstructive pulmonary disease) Status: Acute DS: Summary Hospital Course: Patient is a 68-year-old female with past medical history significant for COPD on home oxygen, congestive heart failure, history of TIA/CVA, chronic kidney disease, hypothyroidism, dyslipidemia, history of tricuspid regurgitation , who presented to the emergency department with severe shortness of breath secondary to acute COPD exacerbation and pneumonia. Patient received [id number] DuoNeb breathing treatments and IV Solu-Medrol and IV magnesium without improvement. Despite 1 hour of BiPAP patient remained tachypneic and lethargic with worsening encephalopathy. Chest x-ray showed right upper lobe pneumonia. She was admitted to ICU. Transferred to stepdown, continued to be treated with bronchodilators, IV cefepime, and azithromycin. - Time Spent with Patient Total time spent providing and/or coordinating discharge services: 30 Less than 30 minutes - Quality: AMI Clinical Trial Participant: No - Quality: Stroke Symptom Onset Unknown: No - Quality: VTE Is this test being ordered to rule out VTE?: No Deep Vein Thrombosis/Pulmonary Embolism Present on Admission: No Exam Vital signs: Vital Signs 07/13/18 09:00 07/13/18 10:00 07/13/18 11:00 Temperature Pulse Rate 72 70 75 Respiratory Rate Blood Pressure Pulse Oximetry 07/13/18 12:00 07/13/18 13:00 07/13/18 14:00 Temperature 98.2 F Pulse Rate 74 74 74 Respiratory Rate 18 Blood Pressure 148/89 H Pulse Oximetry 93 L 07/13/18 15:00 07/13/18 16:00 07/13/18 17:00 Temperature 97.9 F Pulse Rate 76 82 90 Respiratory Rate 18 Blood Pressure 172/97 H Pulse Oximetry 94 L 07/13/18 19:00 07/13/18 19:36 07/13/18 20:00 Temperature 97.2 F L Pulse Rate 94 H 81 82 Respiratory Rate 20 Blood Pressure 162/99 H Pulse Oximetry 94 L 07/13/18 21:00 07/13/18 22:00 07/13/18 23:00 Temperature Pulse Rate 76 68 77 Respiratory Rate Blood Pressure Pulse Oximetry 07/14/18 00:00 07/14/18 01:00 07/14/18 02:00 Temperature 97.5 F L Pulse Rate 68 62 64 Respiratory Rate 20 Blood Pressure 129/74 Pulse Oximetry 91 L 07/14/18 03:00 07/14/18 03:26 07/14/18 04:00 Temperature 98.3 F Pulse Rate 65 67 64 Respiratory Rate 20 Blood Pressure 146/88 H Pulse Oximetry 91 L 07/14/18 05:00 07/14/18 06:00 Temperature Pulse Rate 61 77 Respiratory Rate Blood Pressure Pulse Oximetry Intake & Output 07/13/18 07/14/18 07/14/18 18:59 06:59 18:59 Intake Total 820 / 820 590 / 590 Output Total 800 / 800 Balance 20 / 20 590 / 590 Weight 78.3 kg Intake: IV 100 / 100 350 / 350 Azithromycin Inj 500 MG In NS 250 / 250 Inj 250 ML @ 250 mls/hr IV.SIG Q24H [facility]ME[facility] Rx#:[id number] Maxipime Inj 2,000 MG In NS Inj 100 / 100 100 / 100 100 ML @ 200 mls/hr IV.SIG Q12H OMEGA Rx#:[id number] Oral 720 / 720 240 / 240 Output: Urine 800 / 800 Other: # Voids 2 5 # Incontinent Voids 2 - Constitutional no acute distress - Routine HEENT Exam Head: Present: normocephalic Eye: Present: PERRL ENT: Present: mucous membranes moist - Routine Neck Exam Present: supple - Routine Respiratory Exam Present: diminished air movement - Routine Cardiovascular Exam Present: S1, S2 - Routine Abdominal Exam Present: soft, normoactive bowel sounds - Routine Extremities Exam Present: pulses intact - Routine Skin Exam Present: dry, warm - Routine Neurological Exam Present: alert, oriented X3 Results Procedures completed during hospitalization: n/a - Impressions ITS Impressions Chest CT 07/10/18 00:00 CONCLUSION: 1. There are 2 new opacities in the right lung, both of which contain air bronchograms and are suspicious for areas of subsegmental consolidation. 2. Stable small right pleural effusion and mild increase in size of left pleural effusion. Chest X-Ray 07/10/18 06:00 CONCLUSION: Endotracheal tube and nasogastric tube no longer seen. Patchy right midlung zone opacity unchanged. Discharge Plan - Discharge Disposition Patient Disposition: /Home Health Service - Discharge Condition Condition: Fair - Discharge Order Discharge Orders: Discharge Order (Routine); Ordered 07/14/18 Ordered By: Poornima Gonzales - Discharge Details Anticipated Discharge Date: 07/14/18 - Physicians Team Primary Care Provider: Carlo Vang Attending Provider: Vincent Corbin Other Providers: Vinod Camacho ; Montez Licona DO ; Jose Mack MD
[2018-07-14] MEDS: Allopurinol 100 MG Tablet PO SCH (09:00)
[2018-07-14] MEDS: predniSONE 10 MG Tablet PO SCH (09:01)
[2018-07-14] MEDS: Famotidine PF Inj 20 MG/2 ML Vial IV.PUSH SCH (09:01)
[2018-07-14] MEDS: amLODIPine 5 MG Tablet PO SCH (09:01)
[2018-07-14] MEDS: Enoxaparin Inj 40 MG/0.4 ML Syringe SQ SCH (09:02)
[2018-07-14] MEDS ORDERED: Sodium Chloride 0.9% 2 ML Flush PRN IV.FLUSH (09:52)
[2018-07-14 09:55] LABS: Hematocrit 36.7 % (35.0-46.0); Hemoglobin 12.4 gm/dL (11.6-15.3); Mean Corpuscular HGB Conc 33.8 % (32.0-36.0); Mean Corpuscular Hemoglobin 28.1 pg (27.0-34.0); Mean Corpuscular Volume 83.2 fL (80.0-100.0); Mean Platelet Volume 7.3 fL (7.0-11.0); Platelet Count 226 th/mm3 (150-450); Red Blood Count 4.41 mil/mm3 (4.00-5.30); Red Cell Distribution Width 18.5 % (11.6-17.2); White Blood Count 9.1 th/mm3 (4.0-11.0)
[2018-07-14 10:02] VITALS: RESP 18
[2018-07-14 10:19] LABS: Calcium 9.2 mg/dL (8.5-10.1); Carbon Dioxide 34.2 meq/L (21.0-32.0); Potassium 3.5 meq/L (3.5-5.1)
[2018-07-14] MEDS: Budesonide-Formoterol 160/4.5 MCG 6 GM Inhaler INH SCH (10:29)
[2018-07-14 12:02] VITALS: BP 140/76; PULSE 69; TEMP 97.8; O2SAT 93
[2018-07-14] MEDS ORDERED: Sodium Chloride 0.9% 2 ML Flush BID IV.FLUSH SCH (21:00)
== END 2018-07-14 11:49 ==
LOC: NEPE 14:25 → NEDA 16:12 → HIMC 17:10 → HCIS 07-10 21:58
PROVIDERS: ADMIT Internal Medicine; ATTEND Internal Medicine